=== PATIENT | male | born 1950 | race Caucasian/White ===

== ENCOUNTER → 2016-12-10 | Outpatient (CLI) | payer MEDICARE, OTHER ==
[~2016-12-10] MED LIST: ASP81TEC PO; ASPI-892; ATOR20TA66 PO; BETA1TAB15 PO; BISO1TAB6 PO; CARV12.5 GT; CETI10TA17 PO; CLPD75T PO; DIPH25TA82 PO; EPIN0.3P3 IM; FAMO20TA5 PO; FIBER THERAPY PO; FISH OIL 1,2001 EAC1 PO; FISH1CAP15 PO; GABA-488 PO; HYDR25TA4 PO; LAX; LISI10TA2 PO; LISI1TAB8 PO; LOSA100T7 PO; METF500T8 PO; MULT-608 PO; NAPR220T76 PO; NST15C; OMEG1CAP51; OMEP-10 PO; POTA10TA6 PO; PRD20T PO; SIMV40TA2 PO; SITA100T PO; TADA2.5T PO; TEST5GEL6; VALS1TAB15 PO; VALS1TAB80 PO; ZINC50TA49 PO; [UNRECOGNIZED DRUG - OTHER]; [UNRECOGNIZED DRUG - OTHER]
--- NOTE | 2016-12-10 08:49 | Diagnostic Imaging Report ---
INDICATION: Elevated liver enzymes Liver is enlarged measuring 23 cm in length. There is increased echogenicity suggesting fatty infiltration. No focal hepatic abnormality is identified and there is no evidence of biliary ductal dilatation. Common bile duct is partially obscured. Pancreas is not well visualized. There is no evidence of right renal abnormality or significant free fluid in the right upper quadrant. IMPRESSION: Hepatomegaly with fatty infiltration of the liver. There is no evidence of significant biliary ductal dilatation within the liver and no mass is identified. There is no evidence of gallbladder inflammation or stone. Dictated by: Dictated on workstation # [id number]
== END ==
LOC: RAD 06:50
PROVIDERS: ATTEND Family Medicine
DX: K76.0 Fatty (change of) liver, not elsewhere classified (principal); R74.8 Abnormal levels of other serum enzymes
CPT/HCPCS: 76705

== ENCOUNTER 2018-01-31 13:30 | Emergency (ER) | payer MEDICARE, OTHER ==
[~2018-01-31] VITALS: Ht 182.9 cm; Wt 118.4 kg
--- OUTSIDE RECORDS SUMMARY | 2018-01-31 13:37 | XMS REPORT | Continuity of Care Document ---
Author Author [facility] Organization [facility] Address Unknown Phone Unavailable Allergies Active Description Code Type Severity Reaction Onset Reported/Identified Relationship to Patient Clinical Status Yes No Known Drug Allergies [id number] Drug Allergy Unknown N/A 09/28/2008 Yes JR Inhibitors [id number] Drug Allergy Unknown N/A 06/08/2014 Medications There is no data. Problems Date Dx Coded Attending Type Code Diagnosis Diagnosed By 02/17/2014 SHELDON YARBROUGH, SARAH Nicholson Ot 995.1 ANGIONEUROTIC EDEMA 06/08/2014 DANNANDEZEQUIEL DO, TIM S Ot 250.02 DIAB NAMRATA WO COMPL, TYPE II OR UNSPEC TY 06/08/2014 DANNANDEZEQUIEL DO, ITM S Ot 401.9 HYPERTENSION NOS 06/08/2014 DANNANDER DO, TIM S Ot 995.1 ANGIONEUROTIC EDEMA 06/08/2014 DANNANDER DO, TIM S Ot E932.0 ADV EFF CORTICOSTEROIDS 10/23/2014 DANNANDER DO, TIM S Ot 250.02 10/23/2014 DANNANDER DO, TIM S Ot 278.00 10/23/2014 DANNANDER DO, TIM S Ot 355.9 10/23/2014 DANNANDER DO, TIM S Ot 401.9 12/12/2014 DANNANDER DO, TIM S Ot 250.02 DIAB NAMRATA WO COMPL, TYPE II OR UNSPEC TY 12/12/2014 ORENDER DO, TIM S Ot 278.00 OBESITY, NOS 12/12/2014 DANNANDER DO, TIM S Ot 355.9 MONONEURITIS NOS 12/12/2014 DANNANDER DO, TIM S Ot 401.9 HYPERTENSION NOS 12/14/2014 DANNANDER DO, TIM S Ot 250.02 12/14/2014 DANNANDER DO, TIM S Ot 278.00 12/14/2014 DANNANDER DO, TIM S Ot 355.9 12/14/2014 ORENDER DO, TIM S Ot 401.9 12/15/2014 ORENDER DO, TIM S Ot 250.02 12/15/2014 ORENDER DO, TIM S Ot 278.00 12/15/2014 ORENDER DO, TIM S Ot 355.9 12/15/2014 ORENDER DO, TIM S Ot 401.9 12/15/2014 ORENDER DO, TIM S Ot 250.02 12/15/2014 ORENDER DO, TIM S Ot 278.00 12/15/2014 ORENDER DO, TIM S Ot 355.9 12/15/2014 ORENDER DO, TIM S Ot 401.9 12/15/2014 ORENDER DO, TIM S Ot 250.02 12/15/2014 ORENDER DO, TIM S Ot 278.00 12/15/2014 ORENDER DO, TIM S Ot 355.9 12/15/2014 ORENDER DO, TIM S Ot 401.9 12/15/2014 ORENDER DO, TIM S Ot 250.02 12/15/2014 ORENDER DO, TIM S Ot 278.00 12/15/2014 ORENDER DO, TIM S Ot 355.9 12/15/2014 ORENDER DO, TIM S Ot 401.9 12/15/2014 ORENDER DO, TIM S Ot 250.02 12/15/2014 ORENDER DO, TIM S Ot 278.00 12/15/2014 ORENDER DO, TIM S Ot 355.9 12/15/2014 ORENDER DO, TIM S Ot 401.9 01/05/2015 ORENDER DO, TIM S Ot 250.02 01/05/2015 ORENDER DO, TIM S Ot 278.00 01/05/2015 ORENDER DO, TIM S Ot 355.9 01/05/2015 ORENDER DO, TIM S Ot 401.9 02/10/2015 ORENDER DO, TIM S Ot 250.02 02/10/2015 ORENDER DO, TIM S Ot 278.00 02/10/2015 ORENDER DO, TIM S Ot 355.9 02/10/2015 OREND DO, TIM S Ot 401.9 02/15/2015 OREND DO, TIM S Ot 250.02 02/15/2015 OREND DO, TIM S Ot 278.00 02/15/2015 OREND DO, TIM S Ot 355.9 02/15/2015 OREND DO, TIM S Ot 401.9 02/23/2015 [facility], TIM S Ot 250.02 DIAB NAMRATA WO COMPL, TYPE II OR UNSPEC TY 02/23/2015 ORENDER DO, TIM S Ot 278.00 OBESITY, NOS 02/23/2015 ORENDER DO, TIM S Ot 355.9 MONONEURITIS NOS 02/23/2015 OREND DO, TIM S Ot 401.9 HYPERTENSION NOS 01/02/2017 DANNAND DO, TIM S Ot K76.0 FATTY (CHANGE OF) LIVER, NOT ELSEWHERE C 01/02/2017 DANNAND DO, TIM S Ot R74.8 ABNORMAL LEVELS OF OTHER SERUM ENZYMES Procedures There is no data. Results There is no data. Encounters ACCT No. Visit Date/Time Discharge Status Pt. Type Provider Facility Loc./Unit Complaint [id number] 12/10/2016 06:50:00 12/10/2016 23:59:59 CLS Outpatient DANNAKADE AVITIA TIM S [facility] RAD ELEVATED LFT'S [id number] 01/03/2015 18:00:00 02/23/2015 00:01:00 DIS Outpatient DEVORA AVITIA TIM S [facility] DSME DM TYPE 2 [id number] 09/13/2014 09:48:00 12/12/2014 00:01:00 DIS Outpatient NARAYAN JUNIORTIM S [facility] DSME DM TYPE 2 [id number] 06/07/2014 16:55:00 06/08/2014 10:40:00 DIS Inpatient NARAYAN JUNIORTIM S [facility] 4TH ANGIOEDEMA OF TONGUE; SUSPECT 2 DEGREE TO JR INHIB [id number] 02/17/2014 18:16:00 02/17/2014 20:21:00 DIS Emergency BRUEGGEMANN MD, SARAH [facility] ER ALLERGIC REACTION/ TONGUE SWELLING [facility] 01/04/2015 09:37:35 ACT Document Registration 08/02/16 12/17/2017 08:52:30 12/17/2017 23:59:59 [facility] Outpatient Tim Logan
[2018-01-31] MEDS ORDERED: NS IV 1000 ML 1,000 ML IV ONE (13:49)
[2018-01-31] MEDS ORDERED: diphenhydrAMINE 50 MG/ML INJ (BENADRYL) IV STA (13:49)
[2018-01-31] MEDS ORDERED: methylPREDNISolone 125 MG (Solu-MEDROL) VIAL IV STA (13:49)
[2018-01-31] MEDS ORDERED: raNItidine 50 MG/2 ML INJ (ZANTAC) IJ ONE (14:00)
[2018-01-31] MEDS ORDERED: EPINEPHrine INJECTION 1 MG/ML AMP IM ONE (14:00)
[2018-01-31 14:26] LABS: BASOPHILS % (AUTO) 0 % (0-10); EOSINOPHILS # (AUTO) 0.4 10^3/uL (0.0-0.3); EOSINOPHILS % (AUTO) 4 % (0-10); HEMATOCRIT 44 % (40-54); HEMOGLOBIN 15.5 G/DL (13.3-17.7); LYMPHOCYTES # (AUTO) 3.1 X 10^3 (1.0-4.0); LYMPHOCYTES % (AUTO) 28 % (12-44); MEAN CORPUSCULAR HEMOGLOBIN 32 PG (25-34); MEAN CORPUSCULAR HGB CONC 36 G/DL (32-36); MEAN CORPUSCULAR VOLUME 91 FL (80-99); MEAN PLATELET VOLUME 11.9 FL (7.4-10.4); MONOCYTES # (AUTO) 0.8 X 10^3 (0.0-1.0); MONOCYTES % (AUTO) 7 % (0-12); NEUTROPHILS # (AUTO) 6.7 X 10^3 (1.8-7.8); NEUTROPHILS % (AUTO) 61 % (42-75); PLATELET COUNT 174 10^3/uL (130-400); RED BLOOD COUNT 4.78 10^6/uL (4.35-5.85); RED CELL DISTRIBUTION WIDTH 13.1 % (10.0-14.5)
--- NOTE | 2018-01-31 14:28 | ED General ---
General Chief Complaint: Allergic Reaction Stated Complaint: ALLERGIC REACTION, FACE, LIP SWELLING Source of Information: Patient Exam Limitations: No Limitations History of Present Illness Date Seen by Provider: Jan 31, 2018 Time Seen by Provider: 13:59 Initial Comments PT ARRIVES VIA POV FROM [facility] PT NOTICED HIVES ON DORSUM OF RIGHT HAND A FEW DAYS AGO,WENT AWAY, THEN STARTED IN LEFT GROIN AREA THE NEXT DAY, THEN LAST PM IT MOVED TO HIS RIGHT AXILLA TODAY AT NOON, HE WAS EATING BBQ AT [employer] IN [place] AND BEGAN TO HAVE SWELLING TO RIGHT SIDE OF FACE, RIGHT SIDE OF TONGUE AND RIGHT UPPER AND LOWER LIP AND RIGHT HALF OF TONGUE IS STARTING TO FEEL NUMB AND TINGLY NO DIFFICULTY SWALLOWING OR BREATHING OR WHEEZING NO SWELLING TO HANDS OR FEET TODAY PT WAS GIVEN 0.22 ML EPINEPHRINE, 50 MG BENADRYL PO AND DECADRON 10 MG AT [facility] PT HAS HAD 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 LOZOYA Allergies and Home Medications Allergies Coded Allergies: JR Inhibitors (Unverified Allergy, Unknown, 06/08/14) ANGIOEDEMA OF TONGUE Home Medications Aspirin 81 Mg Tabec, 81 MG PO DAILY, (Reported) Atorvastatin 20 Mg Tablet, 20 MG PO DAILY, (Reported) Carvedilol 12.5 Mg Tablet, 12.5 MG GT BID Prescribed by: TIM LOZOYA on 06/08/14 0831 Cetirizine Hcl 10 Mg Tablet, 10 MG PO DAILY, (Reported) Diphenhydramine Hcl 25 Mg Tablet, 1 EACH PO HS PRN for ITCHING Prescribed by: TIM LOZOYA on 06/08/14 0829 Epinephrine 0.3 Mg/0.3 Ml Pen.injctr, 0.3 MG IM PRN PRN for anaphylaxis or angioedema Prescribed by: SARAH GARCIA on 02/17/142020 Fish Oil/Dha/Epa 1 Each Capsule, 1 EACH PO DAILY, (Reported) Hydrochlorothiazide 25 Mg Tablet, 25 MG PO DAILY Prescribed by: TIM LOZOYA on 06/08/14 0831 Metformin Hcl 500 Mg Tab.sr.24h, 1 EACH PO BID WITH MEALS, (Reported) Multivitamins 1 Tab Tablet, 1 TAB PO DAILY, (Reported) Omeprazole 20 Mg Capsule.dr, 20 MG PO DAILY, (Reported) Potassium Chloride 10 Meq Tablet.sa, 1 EACH PO DAILY WITH FOOD, (Reported) Prednisone 20 Mg Tab, 20 MG PO DAILY@0700 Prescribed by: ITM LOZOYA on 06/08/14 0829 Prednisone 20 Mg Tab, 60 MG PO DAILY Prescribed by: FOX STRICKLAND on 01/31/18 1613 Sitagliptin Phosphate 100 Mg Tablet, 1 EACH PO DAILY, (Reported) Vit A/Vit C/Vit E/Zinc/Copper 1 Each Tablet, 1 EACH PO DAILY, (Reported) [Fiber Therapy] , 2 TAB PO DAILY, (Reported) Patient Home Medication List Home Medication List Reviewed: Yes Review of Systems Review of Systems Constitutional: no symptoms reported EENTM: see HPI Respiratory: no symptoms reported; No cough, No short of breath, No stridor, No wheezing Cardiovascular: no symptoms reported Gastrointestinal: no symptoms reported; No nausea, No vomiting Genitourinary: no symptoms reported Musculoskeletal: no symptoms reported Skin: see HPI, pruritus, rash Psychiatric/Neurological: No Symptoms Reported Hematologic/Lymphatic: No Symptoms Reported Immunological/Allergic: see HPI Past Axjlcgu-Ainrxd-Gobjst Hx Patient Social History Recent Foreign Travel: No Contact w/Someone Who Travel: No Immunizations Up To Date Date of Pneumonia Vaccine: Jun 07, 2009 Date of Influenza Vaccine: Apr 07, 2014 Past Medical History Surgeries: Yes (NASAL FX X 2; BRAIN SURGERY 1984 FOR CEREBRAL HEMORRHAGE WITH TRACHEOSTOMY; KNEE SCOPE; CARDIAC CATH WITH STENT) Appendectomy, Cardiac, Coronary Stent, Neurological, Orthopedic, Tracheostomy, Transurethral Resection, Vasectomy Cardiac: Yes Coronary Artery Disease, High Cholesterol, Hypertension Neurological: Yes (INTRACRANIAL BLEED) Neuropathy Reproductive Disorders: No Genitourinary: Yes Prostate Problems Gastrointestinal: No Musculoskeletal: Yes (RIGHT FOOT DROP, LUMBAR RADICULOPATHY/NERVE DAMAGE) Foot Drop, Chronic Back Pain Endocrine: Yes Diabetes, Non-Insulin dep HEENT: No Cancer: No Psychosocial: No Integumentary: No Blood Disorders: Yes (POLYCYTHEMIA) Adverse Reaction/Blood Tranf: No Physical Exam Vital Signs Vital Signs - First Documented 01/31/18 13:30 Temp 98.5 Pulse 68 Resp 18 B/P (MAP) 166/98 (120) Pulse Ox 95 O2 Delivery Room Air Capillary Refill : Height, Weight, BMI Height: 6'0.00" Weight: 276lbs. oz. 125.700305ob; BMI Method:Actual General Appearance: No Apparent Distress, WD/WN HEENT: PERRL/EOMI, TMs Normal, Other (MODERATE SWELLING TO RIGHT CHEEK AND LOWER JAW, RIGHT SIDE OF UPPER AND LOWER LIPS, AND TO RIGHT> LEFT SIDE OF TONGUE. 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 SIMILAR URTICARIA IN LEFT GROIN) Progress/Results/Core Measures Suspected Sepsis SIRS Temperature: Pulse: Respiratory Rate: Laboratory Tests 01/31/18 14:05: White Blood Count 11.0 Blood Pressure / Mean: Laboratory Tests 01/31/18 14:05: Creatinine 1.39H, Platelet Count 174, Total Bilirubin 1.2H 01/31/18 14:47: INR Comment 1.1 Results/Orders Lab Results Laboratory Tests Test 01/31/18 14:05 01/31/18 14:47 Range/Units White Blood Count 11.0 4.3-11.0 10^3/uL Red Blood Count 4.78 4.35-5.85 10^6/uL Hemoglobin 15.5 13.3-17.7 G/DL Hematocrit 44 40-54 % Mean Corpuscular Volume 91 80-99 FL Mean Corpuscular Hemoglobin 32 25-34 PG Mean Corpuscular Hemoglobin Concent 36 32-36 G/DL Red Cell Distribution Width 13.1 10.0-14.5 % Platelet Count 174 130-400 10^3/uL Mean Platelet Volume 11.9 H 7.4-10.4 FL Neutrophils (%) (Auto) 61 42-75 % Lymphocytes (%) (Auto) 28 12-44 % Monocytes (%) (Auto) 7 0-12 % Eosinophils (%) (Auto) 4 0-10 % Basophils (%) (Auto) 0 0-10 % Neutrophils # (Auto) 6.7 1.8-7.8 X 10^3 Lymphocytes # (Auto) 3.1 1.0-4.0 X 10^3 Monocytes # (Auto) 0.8 0.0-1.0 X 10^3 Eosinophils # (Auto) 0.4 H 0.0-0.3 10^3/uL Basophils # (Auto) 0.0 0.0-0.1 10^3/uL Sodium Level 136 135-145 MMOL/L Potassium Level 4.1 3.6-5.0 MMOL/L Chloride Level 103 98-107 MMOL/L Carbon Dioxide Level 21 21-32 MMOL/L Anion Gap 12 5-14 MMOL/L Blood Urea Nitrogen 15 7-18 MG/DL Creatinine 1.39 H 0.60-1.30 MG/DL Estimat Glomerular Filtration Rate 51 BUN/Creatinine Ratio 11 Glucose Level 160 H 70-105 MG/DL Calcium Level 10.1 8.5-10.1 MG/DL Corrected Calcium 9.7 8.5-10.1 MG/DL Total Bilirubin 1.2 H 0.1-1.0 MG/DL Aspartate Amino Transf (AST/SGOT) 61 H 5-34 U/L Alanine Aminotransferase (ALT/SGPT) 83 H 0-55 U/L Alkaline Phosphatase 53 40-136 U/L Total Protein 7.1 6.4-8.2 GM/DL Albumin 4.5 3.2-4.5 GM/DL Prothrombin Time 14.0 12.2-14.7 SEC INR Comment 1.1 0.8-1.4 Activated Partial Thromboplast Time 26 24-35 SEC My Orders Orders - FOX STRICKLAND DO Saline Lock/Iv-Start (01/31/18 13:49) Monitor-Rhythm Ecg Trace Only (01/31/18 13:49) Cbc With Automated Diff (01/31/18 13:49) Comprehensive Metabolic Panel (01/31/18 13:49) Protime With Inr (01/31/18 13:49) Partial Thromboplastin Time (01/31/18 13:49) Saline Lock/Iv-Start (01/31/18 13:49) Ns Iv 1000 Ml (Sodium Chloride 0.9%) (01/31/18 13:49) Diphenhydramine Injection (Benadryl Inje (01/31/18 13:49) Methylprednisolone Sod Succ (Solu-Medrol (01/31/18 13:49) Ranitidine Injection (Zantac Injection) (01/31/18 14:00) Epinephrine 1 Mg Injection (Adrenalin I (01/31/18 14:00) Medications Given in ED Current Medications Medications Dose Ordered Sig/Luis F Route Start Time Stop Time Status Last Admin Dose Admin Epinephrine HCl 0.3 mg ONCE ONCE IM 01/31/18 14:00 01/31/18 14:01 DC 01/31/18 14:17 0.3 MG Ranitidine HCl 50 mg ONCE ONCE IJ 01/31/18 14:00 01/31/18 14:01 DC 01/31/18 14:14 50 MG Sodium Chloride 1,000 ml @ 0 mls/hr Q0M ONCE IV 01/31/18 13:49 01/31/18 13:53 DC 01/31/18 14:18 1,000 MLS/HR Vital Signs/I&O 01/31/18 01/31/18 13:30 16:20 Temp 98.5 Pulse 68 76 Resp 18 18 B/P (MAP) 166/98 (120) 169/95 Pulse Ox 95 95 O2 Delivery Room Air Capillary Refill : Progress Note : Progress Note ALL SYMPTOMS RESOLVED WITH MEDICATIONS, EXCEPT FOR MILD RESIDUAL SWELLING OF RIGHT LOWER LIP PT IS ANXIOUS TO GO HOME, OFFERED ADMIT AND HE DECLINES PT ADVISED OF RISKS OF WORSENING OF SYMPTOMS IN A FEW HOURS, WHEN MEDICATIONS WEAR OFF. PT AND APPEAR TO UNDERSTAND ADVISED TO RETURN TO ER IMMEDIATELY IF SWELLING RETURNS. Departure Impression Primary Impression: ALLERGIC REACTION WITH HIVES AND ANGIOEDEMA Disposition: HOME, SELF-CARE Condition: Improved Departure-Patient Inst. Referrals: TIM LOZOYA DO (PCP/Family) Primary Care Physician Patient Instructions: Drug Allergy, Food Allergy Add. Discharge Instructions: HOME, REST TAKE BENADRYL 50 MG EVERY 4 HOURS ZANTAC 150 MG TWICE A DAY LOTS OF FLUIDS FOLLOW UP WITH YOUR DR ON SATURDAY FOR FURTHER CARE RETURN TO ER IF WORSE All discharge instructions reviewed with patient and/or family. Voiced understanding. Scripts Prednisone (Prednisone) 20 Mg Tab 60 MG PO DAILY, #9 TAB Prov: FOX STRICKLAND DO 01/31/18 FOX STRICKLAND DO Jan 31, 2018 14:28
[2018-01-31 14:48] LABS: ALBUMIN 4.5 GM/DL (3.2-4.5); BILIRUBIN,TOTAL 1.2 MG/DL (0.1-1.0); CALCIUM 10.1 MG/DL (8.5-10.1); CREATININE SERUM 1.39 MG/DL (0.60-1.30); POTASSIUM 4.1 MMOL/L (3.6-5.0); TOTAL PROTEIN 7.1 GM/DL (6.4-8.2)
[2018-01-31 15:11] LABS: INR 1.1 (0.8-1.4)
[2018-01-31] MEDS ORDERED: PRD20T PO (16:13)
[2018-01-31 16:20] VITALS: BP 169/95
== END 2018-01-31 16:26 | disposition home or self-care (01) ==
LOC: EDUNIT# 13:30 → ER 13:32
DX: T78.40XA Allergy, unspecified, initial encounter (principal); T78.3XXA Angioneurotic edema, initial encounter; L50.9 Urticaria, unspecified; E78.00 Pure hypercholesterolemia, unspecified; I25.10 Atherosclerotic heart disease of native coronary artery without angina pectoris; I10 Essential (primary) hypertension; E11.9 Type 2 diabetes mellitus without complications; Z87.820 Personal history of traumatic brain injury; Z88.8 Allergy status to other drugs, medicaments and biological substances; Z79.82 Long term (current) use of aspirin; Z79.84 Long term (current) use of oral hypoglycemic drugs; Z79.52 Long term (current) use of systemic steroids; Z93.0 Tracheostomy status; Z95.5 Presence of coronary angioplasty implant and graft; Z90.89 Acquired absence of other organs; Z98.52 Vasectomy status
CPT/HCPCS: 36415; 80053; 85025; 85610; 85730; 93041; 96361; 96372; 96374; 96375

== ENCOUNTER 2018-02-05 08:35 | Emergency (ER) | payer MEDICARE, OTHER ==
[~2018-02-05] VITALS: Ht 185.4 cm; Wt 118.4 kg
--- OUTSIDE RECORDS SUMMARY | 2018-02-05 08:43 | XMS REPORT | Continuity of Care Document ---
Author Author [facility] Organization [facility] Address Unknown Phone Unavailable Allergies Active Description Code Type Severity Reaction Onset Reported/Identified Relationship to Patient Clinical Status Yes No Known Drug Allergies [id number] Drug Allergy Unknown N/A 09/28/2008 Yes JR Inhibitors [id number] Drug Allergy Unknown N/A 06/08/2014 Medications There is no data. Problems Date Dx Coded Attending Type Code Diagnosis Diagnosed By 02/17/2014 SHELDON YARBROUGH, SARAH Nicholson Ot 995.1 ANGIONEUROTIC EDEMA 06/08/2014 DANANNDEZEQUIEL DO, TIM S Ot 250.02 DIAB NAMRATA WO COMPL, TYPE II OR UNSPEC TY 06/08/2014 DANNANDEZEQUIEL DO, TIM S Ot 401.9 HYPERTENSION NOS 06/08/2014 DANNANDER [...] OREND DO, TIM S Ot 401.9 [facility]/23/[facility] Ot 250.02 DIAB NAMRATA [...] Status Pt. Type Provider Facility Loc./Unit Complaint [id number] 12/10/2016 06:50:00 12/10/2016 23:59:59 CLS Outpatient DANNAKADE AVITIA TIM S [facility] RAD ELEVATED LFT'S [id number] 01/03/2015 18:00:00 02/23/2015 00:01:00 DIS Outpatient DEVORA AVITIA TIM S [facility] DSME DM TYPE 2 [id number] 09/13/2014 09:48:00 12/12/2014 00:01:00 DIS Outpatient NARAYAN JUNIORTIM S [facility] DSME DM TYPE 2 [id number] 06/07/2014 16:55:00 06/08/2014 10:40:00 DIS Inpatient NARAYAN JUNIORTIM S [facility] 4TH ANGIOEDEMA OF TONGUE; SUSPECT 2 DEGREE TO JR INHIB [id number] 02/17/2014 18:16:00 02/17/2014 20:21:00 DIS Emergency BRUEGGEMANN MD, SARAH Nicholson [facility] ER ALLERGIC REACTION/ TONGUE SWELLING [id number] 02/05/2018 08:36:00 ACT Emergency ANTHONY YARBROUGH, KIM Rodriguez [facility] ER HIVES;TONGUE SWELLING [facility] 01/04/2015 09:37:35 ACT Document Registration 08/02/16 02/03/2018 10:19:48 ACT Outpatient Tim Logan
[2018-02-05] MEDS ORDERED: methylPREDNISolone 125 MG (Solu-MEDROL) VIAL ONE (08:52)
[2018-02-05] MEDS ORDERED: raNItidine 50 MG/2 ML INJ (ZANTAC) ONE (08:52)
[2018-02-05] MEDS ORDERED: diphenhydrAMINE 50 MG/ML INJ (BENADRYL) ONE (08:52)
[2018-02-05] MEDS ORDERED: raNItidine 50 MG/2 ML INJ (ZANTAC) IM/IV STA (08:54)
[2018-02-05] MEDS ORDERED: LORATADINE (CLARITIN) 10 MG TAB PO ONE (09:00)
[2018-02-05] MEDS ORDERED: diphenhydrAMINE 50 MG/ML INJ (BENADRYL) IVP ONE (09:00)
[2018-02-05] MEDS ORDERED: diphenhydrAMINE 50 MG/ML INJ (BENADRYL) IM ONE (09:00)
[2018-02-05] MEDS ORDERED: methylPREDNISolone 125 MG (Solu-MEDROL) VIAL IVP ONE (09:00)
--- NOTE | 2018-02-05 09:05 | ED Respiratory ---
General Chief Complaint: Allergic Reaction Stated Complaint: HIVES;TONGUE SWELLING Nursing Triage Note: PT WAS SEEN SATURDAY OF LAST WEEK FOR AN ALLERGIC REACTION, STATES HIS ITCHING AND HIVES HAVE NOT GONE AWAY AND TOUNGUE IS NOW SWOLLEN Source: patient, spouse Exam Limitations: no limitations History of Present Illness Date Seen by Provider: Feb 05, 2018 Time Seen by Provider: 08:45 Initial Comments The patient presents to the ER by private conveyance with his significant other and chief complaint that this morning he woke up with his tongue feeling, thick and swollen and continue to get worse today. He had some cereal last night to eat and this morning he had eggs toast sausage. No new medications. No new soaps , mouthwash, cologne, detergents etc. Patient does have a history of angioedema from lisinopril but his not on either that or nor ARB. His last event was Saturday similar to this he had swelling of his tongue and difficulty breathing and he took some medications and was seen for that but is no longer taking anything that went away. He has not identified what his allergy is. He does have some food allergies. He said he had honey on his toast this morning. He does not have a history of pulmonary disease and has not taken anything this morning for his swelling. Allergies and Home Medications Allergies Coded Allergies: JR Inhibitors (Unverified Allergy, Unknown, 06/08/14) ANGIOEDEMA OF TONGUE Home Medications Aspirin 81 Mg Tabec, 81 MG PO DAILY, (Reported) Carvedilol 12.5 Mg Tablet, 12.5 MG GT BID Prescribed by: TIM LOZOYA on 06/08/14 0831 Epinephrine 0.3 Mg/0.3 Ml Pen.injctr, 0.3 MG IM PRN PRN for anaphylaxis or angioedema Prescribed by: SARAH GARCIA on 02/17/142020 Fish Oil/Dha/Epa 1 Each Capsule, 1 EACH PO DAILY, (Reported) Metformin Hcl 500 Mg Tab.sr.24h, 1 EACH PO BID WITH MEALS, (Reported) Multivitamins 1 Tab Tablet, 1 TAB PO DAILY, (Reported) Omeprazole 20 Mg Capsule.dr, 20 MG PO DAILY, (Reported) Potassium Chloride 10 Meq Tablet.sa, 1 EACH PO DAILY WITH FOOD, (Reported) Prednisone 20 Mg Tab, 20 MG PO DAILY@0700 Prescribed by: TIM LOZOYA on 06/08/14 0829 Prednisone 20 Mg Tab, 60 MG PO DAILY Prescribed by: FOX STRICKLAND on 01/31/18 1613 Sitagliptin Phosphate 100 Mg Tablet, 1 EACH PO DAILY, (Reported) Vit A/Vit C/Vit E/Zinc/Copper 1 Each Tablet, 1 EACH PO DAILY, (Reported) [Fiber Therapy] , 2 TAB PO DAILY, (Reported) Patient Home Medication List Home Medication List Reviewed: Yes Review of Systems Review of Systems Constitutional: No chills, No diaphoresis EENTM: No ear discharge, No ear pain Respiratory: No cough, No short of breath, No stridor, No wheezing Cardiovascular: No chest pain, No edema Gastrointestinal: No abdominal pain, No constipation, No nausea, No vomiting Genitourinary: No dysuria, No frequency Musculoskeletal: No back pain, No joint pain Skin: No pruritus, No rash Psychiatric/Neurological: Denies Headache, Denies Numbness Past Gimsonv-Ggotnf-Hrptdj Hx Patient Social History Alcohol Use: Denies Use Recreational Drug Use: No Smoking Status: Never a Smoker Recent Foreign Travel: No Contact w/Someone Who Travel: No Recent Infectious Disease Expo: No Recent Hopitalizations: Yes Immunizations Up To Date Date of Pneumonia Vaccine: Jun 07, 2009 Date of Influenza Vaccine: Apr 07, 2014 Past Medical History Surgeries: Yes Appendectomy, Cardiac, Coronary Stent, Neurological, Orthopedic, Tracheostomy, Transurethral Resection, Vasectomy Respiratory: No Cardiac: Yes (STENT PLACEMENT) Coronary Artery Disease, High Cholesterol, Hypertension Neurological: Yes (INTRACRANIAL BLEED) Neuropathy Reproductive Disorders: No Genitourinary: Yes Prostate Problems Gastrointestinal: No Musculoskeletal: Yes (RIGHT FOOT DROP, LUMBAR RADICULOPATHY/NERVE DAMAGE) Foot Drop, Chronic Back Pain Endocrine: Yes Diabetes, Non-Insulin dep HEENT: No Cancer: No Psychosocial: No Integumentary: No Blood Disorders: Yes (POLYCYTHEMIA) Adverse Reaction/Blood Tranf: No Physical Exam Vital Signs - First Documented 02/05/18 08:45 Temp 98.4 Pulse 74 Resp 20 B/P (MAP) 158/98 (118) Pulse Ox 97 O2 Delivery Room Air Capillary Refill : Less Than 3 Seconds Height: 6'1.00" Weight: 261lbs. oz. 118.598282zd; BMI Method:Stated General Appearance: WD/WN, no apparent distress Eyes: Bilateral Eye Normal Inspection, Bilateral Eye PERRL, Bilateral Eye EOMI HEENT: PERRL/EOMI, TMs normal, other (base of tongue is swollen, no erythema, exudate or tonsillar swelling.) Neck: non-tender, full range of motion, supple, normal inspection Respiratory: chest non-tender, lungs clear, normal breath sounds, no respiratory distress, no accessory muscle use, other (negative for stridor) Cardiovascular: normal peripheral pulses, regular rate, rhythm Neurologic/Psychiatric: alert, normal mood/affect, oriented x 3 Skin: other (lone hive on his left chest) Progress/Results/Core Measures Suspected Sepsis Recent Fever Within 48 Hours: No Infection Criteria Present: None New/Unexplained Altered Menta: No Sepsis Screen: No Definite Risk SIRS Temperature:98.4 Pulse: 74 Respiratory Rate: 20 Blood Pressure 158 /98 Mean: 118 Results/Orders My Orders Orders - KIM CRUZ Loratadine Tablet (Claritin Tablet) (02/05/18 09:00) Diphenhydramine Injection (Benadryl Inje (02/05/18 09:00) Methylprednisolone Sod Succ (Solu-Medrol (02/05/18 09:00) Ranitidine Injection (Zantac Injection) (02/05/18 08:54) Diphenhydramine Injection (Benadryl Inje (02/05/18 09:00) Ranitidine Injection (Zantac Injection) (02/05/18 08:52) Diphenhydramine Injection (Benadryl Inje (02/05/18 08:52) Methylprednisolone Sod Succ (Solu-Medrol (02/05/18 08:52) Epinephrine 1 Mg Injection (Adrenalin I (02/05/18 09:17) Continuous Ekg Monitoring (02/05/18 09:17) Epinephrine 1 Mg Injection (Adrenalin I (02/05/18 10:00) Saline Lock/Iv-Start (02/05/18 09:58) Ns Iv 1000 Ml (Sodium Chloride 0.9%) (02/05/18 09:58) Medications Given in ED Current Medications Medications Dose Ordered Sig/Luis F Route Start Time Stop Time Status Last Admin Dose Admin Diphenhydramine HCl 25 mg ONCE ONCE IVP 9/12/18 09:00 02/05/18 09:01 DC 02/05/18 09:04 25 MG Epinephrine HCl 0.5 mg ONCE ONCE IM 02/05/18 10:00 02/05/18 10:01 DC 02/05/18 10:07 0.5 MG Loratadine 10 mg ONCE ONCE PO 02/05/18 09:00 02/05/18 09:01 DC 02/05/18 09:04 10 MG Methylprednisolone Sodium Succinate 125 mg ONCE ONCE IVP 02/05/18 09:00 02/05/18 09:01 DC 02/05/18 09:04 125 MG Vital Signs/I&O 02/05/18 02/05/18 08:45 09:04 Temp 98.4 98.4 Pulse 74 Resp 20 B/P (MAP) 158/98 (118) Pulse Ox 97 O2 Delivery Room Air Capillary Refill : Less Than 3 Seconds Blood Pressure Mean: 118 Progress Note #1: Time: 09:07 Progress Note Regular admitting to some steroids and antihistamines and observe him for a short while and see that he is improving then we'll probably put him out on some modest dose steroids and loratadine/Pepcid or Zantac with Benadryl for breakthrough swelling/itching. Follow-up with PCP. Progress Note #2: Time: 09:36 Progress Note Patient's stating his times continuing to swell still having any stridor but he said some difficulty swallowing liquids so we'll give him a 0.1 mg/kg bolus of epinephrine or 0.5 mg IM. Put him on the director of cardiac rehabilitation. His blood pressure still grade at 138 systolic and his heart rate never went up. We will also give him a liter of saline which would be a 10 mL/kg bolus. Progress Note #3: Time: 10:54 Progress Note Patient is still having no problems drinking or breathing. His tongue has gotten a little smaller. After the second dose epi however is also made his blood pressure got 190/112. We'll hold off treating it as the epinephrine has a limited duration of affect and he still has the carvedilol on board. We will put him on some steroids but a lower dose than before because it causes sugar to jump up to an uncomfortably high level for him. Therefore he only did the steroids for 2 days. We have warned him that he receive a large bolus of steroids here in the ER and I will make sugars go up over the next couple days. Departure Impression Primary Impression: Angioedema Qualified Codes: T78.3XXA - Angioneurotic edema, initial encounter Disposition: 01 HOME, SELF-CARE Condition: Improved Departure-Patient Inst. Decision time for Depature: 10:56 Referrals: TIM LOZOYA DO (PCP/Family) Primary Care Physician Patient Instructions: Angioedema (DC) Add. Discharge Instructions: floor supervisor the prednisone and take 20 mg which is one third the dose your on prior visit. Expect to have some elevated blood sugars for the next couple days. Take one tablet daily for the next 5 days starting tomorrow. Continue to take Zantac or Pepcid one capsule twice a day for the next 5 days and loratadine or cetirizine 10 mg daily. If you feel more hives are coming on or you're having itching or worsening swelling you can also take 25 mg of Benadryl every 6 hours. If you have difficulty breathing or stridor then you should use the epinephrine autoinjector and return to the ER immediately. All discharge instructions reviewed with patient and/or family. Voiced understanding. Scripts Prednisone (Prednisone) 20 Mg Tab 20 MG PO DAILY for 5 Days, #5 TAB 0 Refills Prov: KIM CRUZ 02/05/18 Epinephrine (Epipen) 0.3 Mg/0.3 Ml Auto.injct 0.3 MG IJ Q15M PRN for anaphylaxis, #2 EACH 0 Refills Prov: KIM CRUZ 02/05/18 Copy Copies To 1: TIM LOZOYA TITUS J Feb 05, 2018 09:05
[2018-02-05] MEDS ORDERED: EPINEPHrine INJECTION 1 MG/ML AMP IM STA (09:17)
[2018-02-05] MEDS ORDERED: NS IV 1000 ML 1,000 ML IV SCH (09:58)
[2018-02-05] MEDS ORDERED: EPINEPHrine INJECTION 1 MG/ML AMP IM ONE (10:00)
[2018-02-05] MEDS ORDERED: PRD20T PO (11:01)
[2018-02-05] MEDS ORDERED: EPIN0.3P2 IJ (11:01)
[2018-02-05 11:32] VITALS: BP 171/97
== END 2018-02-05 11:33 | disposition home or self-care (01) ==
LOC: EDUNIT# 08:35 → ER 08:36
DX: T78.3XXA Angioneurotic edema, initial encounter (principal); I25.10 Atherosclerotic heart disease of native coronary artery without angina pectoris; E78.00 Pure hypercholesterolemia, unspecified; I10 Essential (primary) hypertension; E11.9 Type 2 diabetes mellitus without complications; Z88.8 Allergy status to other drugs, medicaments and biological substances; Z79.82 Long term (current) use of aspirin; Z79.84 Long term (current) use of oral hypoglycemic drugs; Z79.52 Long term (current) use of systemic steroids; Z95.5 Presence of coronary angioplasty implant and graft; Z90.89 Acquired absence of other organs; Z93.0 Tracheostomy status; Z98.52 Vasectomy status
CPT/HCPCS: 96361; 96372; 96374; 96375

== ENCOUNTER 2018-02-12 03:50 | Emergency (ER) | payer MEDICARE, OTHER ==
[~2018-02-12] VITALS: Ht 185.4 cm; Wt 118.4 kg
[~2018-02-12 03:50] MED LIST changes: +EPIN0.3P2 IJ
[2018-02-12] MEDS ORDERED: NS IV 1000 ML 1,000 ML IV ONE (04:14)
[2018-02-12] MEDS ORDERED: methylPREDNISolone 125 MG (Solu-MEDROL) VIAL IV STA (04:14)
[2018-02-12] MEDS ORDERED: diphenhydrAMINE 50 MG/ML INJ (BENADRYL) IV STA (04:14)
[2018-02-12] MEDS ORDERED: FAMOTIDINE 20MG/2ML IV (PEPCID) IV STA (04:14)
--- NOTE | 2018-02-12 04:56 | ED General ---
General Chief Complaint: Allergic Reaction Stated Complaint: ALLERGIC REACTION Nursing Triage Note: P c/o allergic reaction that woke pt from sleep this AM. Pt states this is third time in ED in the last couple of weeks for same reaction. Pt denies diffculty breathing or airway involvement. Nursing Sepsis Screen: No Definite Risk Source of Information: Patient Exam Limitations: No Limitations (KING SOOTMAYOR MD) History of Present Illness Date Seen by Provider: Feb 12, 2018 Time Seen by Provider: 04:09 Initial Comments Here with report of allergic reaction in which the left side of his face is swelling including the upper and lower lip on the left side and cheek but not the time. States he is starting to get some numbness to that side as well. He has had several of these reactions over the last couple of weeks and currently is on a steroid taper. He also continues his histamine blockers as well. Unsure of what is causing these events. Denies throat pain or breathing problems. Denies hives with this event. Denies abdominal pain or discomfort. No new meds, lotions, or soaps but does report trying a new trail mix that was carbohydrate only yesterday. Timing/Duration: 1 Hour Severity: Moderate Associated Systoms: No Chest Pain, No Cough, No Fever/Chills, No Nausea/ Vomiting, No Shortness of Air, No Weakness (KING SOTOMAYOR MD) Allergies and Home Medications Allergies Coded Allergies: JR Inhibitors (Unverified Allergy, Unknown, 06/08/14) ANGIOEDEMA OF TONGUE Home Medications Aspirin 81 Mg Tabec, 81 MG PO DAILY, (Reported) Carvedilol 12.5 Mg Tablet, 12.5 MG GT BID Prescribed by: TIM LOZOYA on 06/08/14 0831 Epinephrine 0.3 Mg/0.3 Ml Pen.injctr, 0.3 MG IM PRN PRN for anaphylaxis or angioedema Prescribed by: SARAH GARCIA on 02/17/14 202 Epinephrine 0.3 Mg/0.3 Ml Auto.injct, 0.3 MG IJ Q15M PRN for anaphylaxis Prescribed by: KIM CAMPOS on 02/05/18 1101 Fish Oil/Dha/Epa 1 Each Capsule, 1 EACH PO DAILY, (Reported) Metformin Hcl 500 Mg Tab.sr.24h, 1 EACH PO BID WITH MEALS, (Reported) Multivitamins 1 Tab Tablet, 1 TAB PO DAILY, (Reported) Omeprazole 20 Mg Capsule.dr, 20 MG PO DAILY, (Reported) Potassium Chloride 10 Meq Tablet.sa, 1 EACH PO DAILY WITH FOOD, (Reported) Prednisone 20 Mg Tab, 20 MG PO DAILY@0700 Prescribed by: TIM LOZOYA on 06/08/14 0829 Prednisone 20 Mg Tab, 60 MG PO DAILY Prescribed by: FOX STRICKLAND on 01/31/18 1613 Prednisone 20 Mg Tab, 20 MG PO DAILY Prescribed by: KIM CAMPOS on 02/05/18 1101 Sitagliptin Phosphate 100 Mg Tablet, 1 EACH PO DAILY, (Reported) Vit A/Vit C/Vit E/Zinc/Copper 1 Each Tablet, 1 EACH PO DAILY, (Reported) [Fiber Therapy] , 2 TAB PO DAILY, (Reported) Patient Home Medication List Home Medication List Reviewed: Yes (KING SOTOMAYOR MD) Review of Systems Review of Systems Constitutional: see HPI; No chills, No fever EENTM: see HPI, mouth swelling; No throat swelling Respiratory: No cough, No short of breath Cardiovascular: no symptoms reported Gastrointestinal: no symptoms reported; No nausea, No vomiting Genitourinary: no symptoms reported Musculoskeletal: no symptoms reported Skin: No change in color, No lesions Immunological/Allergic: see HPI (KING SOTOMAYOR MD) All Other Systems Reviewed Negative Unless Noted: Yes (KING SOTOMAYOR MD) Past Yoccquv-Gswzjy-Jghbjh Hx Past Med/Social Hx: Reviewed Nursing Past Med/Soc Hx (KING SOTOMAYOR MD) Patient Social History Alcohol Use: Denies Use Recreational Drug Use: No 2nd Hand Smoke Exposure: No Recent Foreign Travel: No Contact w/Someone Who Travel: No Recent Infectious Disease Expo: No Recent Hopitalizations: Yes Physical Abuse: No Sexual Abuse: No (KING SOTOMAYOR MD) Immunizations Up To Date Date of Pneumonia Vaccine: Jun 07, 2009 Date of Influenza Vaccine: Apr 07, 2014 (KING SOTOMAYOR MD) Past Medical History Surgeries: Yes Appendectomy, Cardiac, Coronary Stent, Neurological, Orthopedic, Tracheostomy, Transurethral Resection, Vasectomy Respiratory: No Cardiac: Yes (STENT PLACEMENT) Coronary Artery Disease, High Cholesterol, Hypertension Neurological: Yes (INTRACRANIAL BLEED) Neuropathy Reproductive Disorders: No Genitourinary: Yes Prostate Problems Gastrointestinal: No Musculoskeletal: Yes (RIGHT FOOT DROP, LUMBAR RADICULOPATHY/NERVE DAMAGE) Foot Drop, Chronic Back Pain Endocrine: Yes Diabetes, Non-Insulin dep HEENT: No Cancer: No Psychosocial: No Integumentary: No Blood Disorders: Yes (POLYCYTHEMIA) Adverse Reaction/Blood Tranf: No (KING SOTOMAYOR MD) Family Medical History Reviewed Nursing Family Hx (KING SOTOMAYOR MD) Physical Exam Vital Signs Vital Signs - First Documented 02/12/18 03:54 Temp 98.2 Pulse 63 Resp 22 B/P (MAP) 157/100 (119) Pulse Ox 95 O2 Delivery Room Air (KIM CAMPOS) Vital Signs Capillary Refill : Less Than 3 Seconds (KING SOTOMAYOR MD) Height, Weight, BMI Height: 6'1.00" Weight: 261lbs. oz. 118.498838pr; BMI Method:Stated General Appearance: No Apparent Distress, WD/WN HEENT: PERRL/EOMI, Other (swelling noted to the left upper and lower lip as well as the left cheek. Tongue does not seem to be involved.) Neck: Full Range of Motion, Supple Respiratory: Lungs Clear, Normal Breath Sounds Cardiovascular: Regular Rate, Rhythm, No Murmur Gastrointestinal: Non Tender, Soft Back: Normal Inspection, No CVA Tenderness, No Vertebral Tenderness Extremity: Normal Range of Motion, Non Tender Neurologic/Psychiatric: Alert, Oriented x3 Skin: Warm/Dry; No Rash (KING SOTOMAYOR MD) Progress/Results/Core Measures Suspected Sepsis Recent Fever Within 48 Hours: No Infection Criteria Present: None New/Unexplained Altered Menta: No Sepsis Screen: No Definite Risk SIRS Temperature:98.2 Pulse: 63 Respiratory Rate: 22 Laboratory Tests 02/12/18 05:45: White Blood Count 11.0 Blood Pressure 157 /100 Mean: 119 Laboratory Tests 02/12/18 05:45: Platelet Count 183 (KING SOTOMAYOR MD) Results/Orders Lab Results Laboratory Tests Test 02/12/18 05:45 Range/Units White Blood Count 11.0 4.3-11.0 10^3/uL Red Blood Count 4.57 4.35-5.85 10^6/uL Hemoglobin 14.7 13.3-17.7 G/DL Hematocrit 42 40-54 % Mean Corpuscular Volume 92 80-99 FL Mean Corpuscular Hemoglobin 32 25-34 PG Mean Corpuscular Hemoglobin Concent 35 32-36 G/DL Red Cell Distribution Width 13.2 10.0-14.5 % Platelet Count 183 130-400 10^3/uL Mean Platelet Volume 11.0 H 7.4-10.4 FL Neutrophils (%) (Auto) 78 H 42-75 % Lymphocytes (%) (Auto) 16 12-44 % Monocytes (%) (Auto) 5 0-12 % Eosinophils (%) (Auto) 1 0-10 % Basophils (%) (Auto) 0 0-10 % Neutrophils # (Auto) 8.6 H 1.8-7.8 X 10^3 Lymphocytes # (Auto) 1.7 1.0-4.0 X 10^3 Monocytes # (Auto) 0.5 0.0-1.0 X 10^3 Eosinophils # (Auto) 0.1 0.0-0.3 10^3/uL Basophils # (Auto) 0.0 0.0-0.1 10^3/uL Sodium Level 137 135-145 MMOL/L Potassium Level 3.9 3.6-5.0 MMOL/L Chloride Level 105 98-107 MMOL/L Carbon Dioxide Level 21 21-32 MMOL/L Anion Gap 11 5-14 MMOL/L Blood Urea Nitrogen 20 H 7-18 MG/DL Creatinine 0.98 0.60-1.30 MG/DL Estimat Glomerular Filtration Rate > 60 BUN/Creatinine Ratio 20 Glucose Level 157 H 70-105 MG/DL Calcium Level 9.0 8.5-10.1 MG/DL Corrected Calcium 9.0 8.5-10.1 MG/DL Total Bilirubin 1.0 0.1-1.0 MG/DL Aspartate Amino Transf (AST/SGOT) 36 H 5-34 U/L Alanine Aminotransferase (ALT/SGPT) 72 H 0-55 U/L Alkaline Phosphatase 52 40-136 U/L Total Protein 6.3 L 6.4-8.2 GM/DL Albumin 4.0 3.2-4.5 GM/DL (KIM CAMPOS) My Orders Orders - KIM CAMPOS Cho 60g/M 1snack (16-1999 Boby) (02/12/18 Breakfast) (KIM CAMPOS) Medications Given in ED Current Medications Medications Dose Ordered Sig/Luis F Route Start Time Stop Time Status Last Admin Dose Admin Sodium Chloride 1,000 ml @ 0 mls/hr Q0M ONCE IV 02/12/18 04:14 02/12/18 04:17 DC 02/12/18 04:25 1,000 MLS/HR (KIM CAMPOS) Vital Signs/I&O 02/12/18 03:54 Temp 98.2 Pulse 63 Resp 22 B/P (MAP) 157/100 (119) Pulse Ox 95 O2 Delivery Room Air (KIM CAMPOS) Vital Signs/I&O Capillary Refill : Less Than 3 Seconds (KING SOTOMAYOR MD) Blood Pressure Mean: 119 Progress Note : Progress Note Seen and evaluated. IV, normal saline 1 L bolus, famotidine 20 mg IV, Benadryl 50 mg IV and Solu-Medrol 125 mg IV ordered. We will monitor and proceed with epinephrine if needed but we will try to hold off at this point. Patient is in agreement. Monitor patient. 0530: Patient still has similar facial findings if not a little worse on the lower lip. We will go ahead and give epinephrine 0.3 mg IM now and continue to monitor. 0610: Care transferred to Dr. Campos with continued monitoring for swelling. (KING SOTOMAYOR MD) Progress Note #1: Time: 06:49 Progress Note #2: Time: 06:49 Progress Note Assumed care of the patient at shift change. I met with interviewed and examined the patient and I agree with history physical exam documented by Dr. Sotomayor. The patient is comfortable this time and feels that his swelling has improved significantly since receiving the epinephrine. The patient is on steroids and no longer checking his blood sugar at home because it has just been consistently high over 300. He is on his second last day of steroids. Steroids are not prevented his anaphylaxis. He is logging foods that he eats and cannot find a discernible pattern. His has changed detergent to a hypoallergenic detergent. At this time he is not having no stridor or airway difficulty but the plan is to observe him for a couple of hours in the ER. (KIM CAMPOS) Departure Impression Primary Impression: Angioedema Qualified Codes: T78.3XXD - Angioneurotic edema, subsequent encounter Disposition: HOME, SELF-CARE Condition: Improved Departure-Patient Inst. Decision time for Depature: 09:07 (KIM CAMPOS) Referrals: TIM LOZOYA DO (PCP/Family) Primary Care Physician Patient Instructions: Angioedema (DC) Add. Discharge Instructions: line service supervisor the EpiPen and he started to have swelling in your tongue lips face or mouth again you should immediately inject yourself with an EpiPen repeated again and 20 minutes if you're still having worsening swelling and report to the nearest ER. Keep your follow-up appointment with the rag washer February 27. Continue taking the loratadine, Zyrtec daily and Pepcid twice a day. All discharge instructions reviewed with patient and/or family. Voiced understanding. Scripts Epinephrine (Epipen 2-Bridger) 0.3 Mg/0.3 Ml Auto.injct 0.3 MG IJ Q20M PRN for angioedema, #1 EACH 0 Refills Prov: KIM CAMPOS 02/12/18 Copy Copies To 1: TIM LOZOYA TIMOTHY D MD Feb 12, 2018 04:56 KIM CAMPOS Feb 12, 2018 06:51
[2018-02-12] MEDS ORDERED: EPINEPHrine INJECTION 1 MG/ML AMP IM STA (05:32)
[2018-02-12 05:56] LABS: BASOPHILS % (AUTO) 0 % (0-10); EOSINOPHILS # (AUTO) 0.1 10^3/uL (0.0-0.3); EOSINOPHILS % (AUTO) 1 % (0-10); HEMATOCRIT 42 % (40-54); HEMOGLOBIN 14.7 G/DL (13.3-17.7); LYMPHOCYTES # (AUTO) 1.7 X 10^3 (1.0-4.0); LYMPHOCYTES % (AUTO) 16 % (12-44); MEAN CORPUSCULAR HEMOGLOBIN 32 PG (25-34); MEAN CORPUSCULAR HGB CONC 35 G/DL (32-36); MEAN CORPUSCULAR VOLUME 92 FL (80-99); MONOCYTES # (AUTO) 0.5 X 10^3 (0.0-1.0); MONOCYTES % (AUTO) 5 % (0-12); NEUTROPHILS # (AUTO) 8.6 X 10^3 (1.8-7.8); NEUTROPHILS % (AUTO) 78 % (42-75); PLATELET COUNT 183 10^3/uL (130-400); RED BLOOD COUNT 4.57 10^6/uL (4.35-5.85); RED CELL DISTRIBUTION WIDTH 13.2 % (10.0-14.5)
[2018-02-12 06:18] LABS: ALANINE AMINOTRANSFERASE 72 U/L (0-55); ALKALINE PHOSPHATASE 52 U/L (40-136); BUN/CREATININE RATIO 20; CARBON DIOXIDE 21 MMOL/L (21-32); CHLORIDE 105 MMOL/L (98-107); CREATININE SERUM 0.98 MG/DL (0.60-1.30); GFR ESTIMATED > 60; GLUCOSE 157 MG/DL (70-105); POTASSIUM 3.9 MMOL/L (3.6-5.0); SODIUM 137 MMOL/L (135-145); TOTAL PROTEIN 6.3 GM/DL (6.4-8.2)
[2018-02-12] MEDS ORDERED: EPIN0.3P3 IJ (09:09)
[2018-02-12 09:58] VITALS: BP 157/99
== END 2018-02-12 09:58 | disposition home or self-care (01) ==
LOC: EDUNIT# 03:50 → ER 03:51
DX: T78.3XXA Angioneurotic edema, initial encounter (principal); I25.10 Atherosclerotic heart disease of native coronary artery without angina pectoris; E78.00 Pure hypercholesterolemia, unspecified; I10 Essential (primary) hypertension; E11.9 Type 2 diabetes mellitus without complications; D75.1 Secondary polycythemia; Z88.8 Allergy status to other drugs, medicaments and biological substances; Z79.82 Long term (current) use of aspirin; Z79.52 Long term (current) use of systemic steroids; Z79.84 Long term (current) use of oral hypoglycemic drugs; Z95.5 Presence of coronary angioplasty implant and graft; Z90.89 Acquired absence of other organs; Z93.0 Tracheostomy status; Z98.52 Vasectomy status; Z90.79 Acquired absence of other genital organ(s)
CPT/HCPCS: 36415; 80053; 85025; 96361; 96372; 96374; 96375

== ENCOUNTER 2018-02-15 21:50 | Emergency (ER) | payer MEDICARE, OTHER ==
[~2018-02-15] VITALS: Ht 185.4 cm; Wt 118.4 kg
[~2018-02-15 21:50] MED LIST changes: +EPIN0.3P3 IJ
[2018-02-15] MEDS ORDERED: EPINEPHrine INJECTION 1 MG/ML AMP IM STA (22:06)
[2018-02-15] MEDS ORDERED: methylPREDNISolone 125 MG (Solu-MEDROL) VIAL IV STA (22:06)
[2018-02-15] MEDS ORDERED: diphenhydrAMINE 50 MG/ML INJ (BENADRYL) IV STA (22:06)
[2018-02-15] MEDS: EPINEPHrine INJECTION 1 MG/ML AMP ONE ×2 (22:06→22:54)
--- OUTSIDE RECORDS SUMMARY | 2018-02-15 22:07 | XMS REPORT | Continuity of Care Document ---
Author Author [facility] Organization [facility] Address Unknown Phone Unavailable Allergies Active Description Code Type Severity Reaction Onset Reported/Identified Relationship to Patient Clinical Status Yes No Known Drug Allergies [id number] Drug Allergy Unknown N/A 09/28/2008 Yes JR Inhibitors [id number] Drug Allergy Unknown N/A 06/08/2014 Medications There [...] ORENDER DO, TIM S Ot 355.9 02/10/2015 ORENDER DO, TIM S Ot 401.9 02/15/2015 ORENDER DO, TIM S Ot 250.02 02/15/2015 ORENDER DO, TIM S Ot 278.00 02/15/2015 ORENDER DO, TIM S Ot 355.9 02/15/2015 ORENDER DO, TIM S Ot 401.9 02/23/2015 ORENDER DO, TIM S Ot 250.02 DIAB NAMRATA WO COMPL, TYPE II OR UNSPEC TY 02/23/2015 ORENDER DO, TIM S Ot 278.00 OBESITY, NOS 02/23/2015 ORENDER DO, TIM S Ot 355.9 MONONEURITIS NOS 02/23/2015 ORENDER DO, TIM S Ot 401.9 HYPERTENSION NOS 01/02/2017 ORENDER DO, TIM S Ot K76.0 FATTY (CHANGE OF) LIVER, NOT ELSEWHERE C 01/02/2017 ORENDER DO, TIM S Ot R74.8 ABNORMAL LEVELS OF OTHER SERUM ENZYMES 01/31/2018 ORENDER DO, TIM S Ot K76.0 FATTY (CHANGE OF) LIVER, NOT ELSEWHERE C 01/31/2018 ORENDER DO, TIM S Ot R74.8 ABNORMAL LEVELS OF OTHER SERUM ENZYMES 02/07/2018 KIM CRUZ MD Ot E11.9 TYPE 2 DIABETES MELLITUS WITHOUT COMPLIC 02/07/2018 KIM CRUZ MD Ot E78.00 PURE HYPERCHOLESTEROLEMIA, UNSPECIFIED 02/07/2018 KIM CRUZ MD Ot I10 ESSENTIAL (PRIMARY) HYPERTENSION 02/07/2018 KIM CRUZ MD Ot I25.10 ATHSCL HEART DISEASE OF [place] CORONARY 02/07/2018 KIM CRUZ MD Ot K14.8 OTHER DISEASES OF TONGUE 02/07/2018 KIM CRUZ MD Ot T78.3XXA ANGIONEUROTIC EDEMA, INITIAL ENCOUNTER 02/07/2018 KIM CRUZ MD Ot Z79.52 DETENTION (CURRENT) USE OF SYSTEMIC STER 02/07/2018 KIM CRUZ MD Ot Z79.82 DETENTION (CURRENT) USE OF ASPIRIN 02/07/2018 KIM CRUZ MD Ot Z79.84 DETENTION (CURRENT) USE OF ORAL HYPOGLYC 02/07/2018 KIM CRUZ MD Ot Z88.8 ALLERGY STATUS TO OTH DRUG/MEDS/BIOL SUB 02/07/2018 KIM CRUZ MD Ot Z90.89 ACQUIRED ABSENCE OF OTHER ORGANS 02/07/2018 KIM CRUZ MD Ot Z93.0 TRACHEOSTOMY STATUS 02/07/2018 KIM CRUZ MD Ot Z95.5 PRESENCE OF CORONARY ANGIOPLASTY IMPLANT 02/07/2018 KIM CRUZ MD Ot Z98.52 VASECTOMY STATUS 02/14/2018 KIM CRUZ MD Ot D75.1 SECONDARY POLYCYTHEMIA 02/14/2018 KIM CRUZ MD Ot E11.9 TYPE 2 DIABETES MELLITUS WITHOUT COMPLIC 02/14/2018 KIM CRUZ MD Ot E78.00 PURE HYPERCHOLESTEROLEMIA, UNSPECIFIED 02/14/2018 KIM CRUZ MD Ot I10 ESSENTIAL (PRIMARY) HYPERTENSION 02/14/2018 KIM CRUZ MD Ot I25.10 ATHSCL HEART DISEASE OF [place] CORONARY 02/14/2018 KIM CRUZ MD Ot T78.3XXA ANGIONEUROTIC EDEMA, INITIAL ENCOUNTER 02/14/2018 KIM CRUZ MD Ot T78.40XA ALLERGY, UNSPECIFIED, INITIAL ENCOUNTER 02/14/2018 KIM CRUZ MD Ot 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 Results Test Result Range Complete blood count (CBC) with automated white blood cell (WBC) differential - 01/31/18 14:05 Blood leukocytes automated count (number/volume) 11.0 10*3/uL 4.3-11.0 Blood erythrocytes automated count (number/volume) 4.78 10*6/uL 4.35-5.85 Venous blood hemoglobin measurement (mass/volume) 15.5 g/dL 13.3-17.7 Blood hematocrit (volume fraction) 44 % 40-54 Automated erythrocyte mean corpuscular volume 91 [foz_us] 80-99 Automated erythrocyte mean corpuscular hemoglobin (mass per erythrocyte) 32 pg 25-34 Automated erythrocyte mean corpuscular hemoglobin concentration measurement ( mass/volume) 36 g/dL 32-36 Automated erythrocyte distribution width ratio 13.1 % 10.0-14.5 Automated blood platelet count (count/volume) 174 10*3/uL 130-400 Automated blood platelet mean volume measurement 11.9 [foz_us] 7.4-10.4 Automated blood neutrophils/100 leukocytes 61 % 42-75 Automated blood lymphocytes/100 leukocytes 28 % 12-44 Blood monocytes/100 leukocytes 7 % 0-12 Automated blood eosinophils/100 leukocytes 4 % 0-10 Automated blood basophils/100 leukocytes 0 % 0-10 Blood neutrophils automated count (number/volume) 6.7 10*3 1.8-7.8 Blood lymphocytes automated count (number/volume) 3.1 10*3 1.0-4.0 Blood monocytes automated count (number/volume) 0.8 10*3 0.0-1.0 Automated eosinophil count 0.4 10*3/uL 0.0-0.3 Automated blood basophil count (count/volume) 0.0 10*3/uL 0.0-0.1 Comprehensive metabolic panel - 01/31/18 14:05 Serum or plasma sodium measurement (moles/volume) 136 mmol/L 135-145 Serum or plasma potassium measurement (moles/volume) 4.1 mmol/L 3.6-5.0 Serum or plasma chloride measurement (moles/volume) 103 mmol/L 98-107 Carbon dioxide 21 mmol/L 21-32 Serum or plasma anion gap determination (moles/volume) 12 mmol/L 5-14 Serum or plasma urea nitrogen measurement (mass/volume) 15 mg/dL 7-18 Serum or plasma creatinine measurement (mass/volume) 1.39 mg/dL 0.60-1.30 Serum or plasma urea nitrogen/creatinine mass ratio 11 NRG Serum or plasma creatinine measurement with calculation of estimated glomerular filtration rate 51 NRG Serum or plasma glucose measurement (mass/volume) 160 mg/dL 70-105 Serum or plasma calcium measurement (mass/volume) 10.1 mg/dL 8.5-10.1 Serum or plasma total bilirubin measurement (mass/volume) 1.2 mg/dL 0.1-1.0 Serum or plasma alkaline phosphatase measurement (enzymatic activity/volume) 53 U/L 40-136 Serum or plasma aspartate aminotransferase measurement (enzymatic activity/ volume) 61 U/L 5-34 Serum or plasma alanine aminotransferase measurement (enzymatic activity/volume ) 83 U/L 0-55 Serum or plasma protein measurement (mass/volume) 7.1 g/dL 6.4-8.2 Serum or plasma albumin measurement (mass/volume) 4.5 g/dL 3.2-4.5 CALCIUM CORRECTED 9.7 mg/dL 8.5-10.1 PT panel in platelet poor plasma by coagulation assay - 01/31/18 14:47 Prothrombin time (PT) in platelet poor plasma by coagulation assay 14.0 s 12.2-14.7 INR in platelet poor plasma or blood by coagulation assay 1.1 0.8-1.4 Activated partial thromboplastin time (aPTT) in platelet poor plasma bycoagulation assay - 01/31/18 14:47 Activated partial thromboplastin time (aPTT) in platelet poor plasma bycoagulation assay 26 s 24-35 Complete blood count (CBC) with automated white blood cell (WBC) differential - 02/12/18 05:45 Blood leukocytes automated count (number/volume) 11.0 10*3/uL 4.3-11.0 Blood erythrocytes automated count (number/volume) 4.57 10*6/uL 4.35-5.85 Venous blood hemoglobin measurement (mass/volume) 14.7 g/dL 13.3-17.7 Blood hematocrit (volume fraction) 42 % 40-54 Automated erythrocyte mean corpuscular volume 92 [foz_us] 80-99 Automated erythrocyte mean corpuscular hemoglobin (mass per erythrocyte) 32 pg 25-34 Automated erythrocyte mean corpuscular hemoglobin concentration measurement ( mass/volume) 35 g/dL 32-36 Automated erythrocyte distribution width ratio 13.2 % 10.0-14.5 Automated blood platelet count (count/volume) 183 10*3/uL 130-400 Automated blood platelet mean volume measurement 11.0 [foz_us] 7.4-10.4 Automated blood neutrophils/100 leukocytes 78 % 42-75 Automated blood lymphocytes/100 leukocytes 16 % 12-44 Blood monocytes/100 leukocytes 5 % 0-12 Automated blood eosinophils/100 leukocytes 1 % 0-10 Automated blood basophils/100 leukocytes 0 % 0-10 Blood neutrophils automated count (number/volume) 8.6 10*3 1.8-7.8 Blood lymphocytes automated count (number/volume) 1.7 10*3 1.0-4.0 Blood monocytes automated count (number/volume) 0.5 10*3 0.0-1.0 Automated eosinophil count 0.1 10*3/uL 0.0-0.3 Automated blood basophil count (count/volume) 0.0 10*3/uL 0.0-0.1 Comprehensive metabolic panel - 02/12/18 05:45 Serum or plasma sodium measurement (moles/volume) 137 mmol/L 135-145 Serum or plasma potassium measurement (moles/volume) 3.9 mmol/L 3.6-5.0 Serum or plasma chloride measurement (moles/volume) 105 mmol/L 98-107 Carbon dioxide 21 mmol/L 21-32 Serum or plasma anion gap determination (moles/volume) 11 mmol/L 5-14 Serum or plasma urea nitrogen measurement (mass/volume) 20 mg/dL 7-18 Serum or plasma creatinine measurement (mass/volume) 0.98 mg/dL 0.60-1.30 Serum or plasma urea nitrogen/creatinine mass ratio 20 NRG Serum or plasma creatinine measurement with calculation of estimated glomerular filtration rate > NRG Serum or plasma glucose measurement (mass/volume) 157 mg/dL 70-105 Serum or plasma calcium measurement (mass/volume) 9.0 mg/dL 8.5-10.1 Serum or plasma total bilirubin measurement (mass/volume) 1.0 mg/dL 0.1-1.0 Serum or plasma alkaline phosphatase measurement (enzymatic activity/volume) 52 U/L 40-136 Serum or plasma aspartate aminotransferase measurement (enzymatic activity/ volume) 36 U/L 5-34 Serum or plasma alanine aminotransferase measurement (enzymatic activity/volume ) 72 U/L 0-55 Serum or plasma protein measurement (mass/volume) 6.3 g/dL 6.4-8.2 Serum or plasma albumin measurement (mass/volume) 4.0 g/dL 3.2-4.5 CALCIUM CORRECTED 9.0 mg/dL 8.5-10.1 Encounters ACCT No. Visit Date/Time Discharge Status Pt. Type Provider Facility Loc./Unit Complaint [id number] 02/12/2018 03:51:00 02/12/2018 09:58:00 DIS Outpatient KIM CRUZ MD [facility] ER ALLERGIC REACTION [id number] 02/05/2018 08:36:00 02/05/2018 11:33:00 DIS Outpatient KIM CRUZ MD [facility] ER HIVES;TONGUE SWELLING [id number] 01/31/2018 13:32:00 01/31/2018 16:26:00 DIS Emergency FOX STRICKLAND DO [facility] ER ALLERGIC REACTION, FACE, LIP SWELLING [id number] 12/10/2016 06:50:00 12/10/2016 23:59:59 CLS Outpatient TIM LOGAN DO S [facility] RAD ELEVATED LFT'S [id number] 01/03/2015 18:00:00 02/23/2015 00:01:00 DIS Outpatient TIM LOGAN DO S [facility] DSME DM TYPE 2 [id number] 09/13/2014 09:48:00 12/12/2014 00:01:00 DIS Outpatient TIM LOGAN DO S [facility] DSME DM TYPE 2 [id number] 06/07/2014 16:55:00 06/08/2014 10:40:00 DIS Inpatient TIM LOGAN DO S [facility] 4TH ANGIOEDEMA OF TONGUE; SUSPECT 2 DEGREE TO JR INHIB [id number] 02/17/2014 18:16:00 02/17/2014 20:21:00 DIS Emergency SHELDON YARBROUGH, SARAH Nicholson [facility] ER ALLERGIC REACTION/ TONGUE SWELLING [id number] 02/15/2018 21:51:00 ACT Emergency СВЕТЛАНА YARBROUGH, KING Garcia [facility] ER THROAT TIGHT, TOUNGE/LIP NUMB, ALLERGIC REACTION [id number] 01/04/2015 09:37:35 ACT Document Registration 08/02/16 02/03/2018 10:19:48 02/03/2018 23:59:59 [facility] Outpatient Tim Logan
[2018-02-15] MEDS: diphenhydrAMINE 50 MG/ML INJ (BENADRYL) ONE ×2 (22:19→22:53)
[2018-02-15] MEDS: methylPREDNISolone 125 MG (Solu-MEDROL) VIAL ONE ×2 (22:19→22:54)
--- NOTE | 2018-02-15 22:35 | ED General ---
General Stated Complaint: THROAT TIGHT, TOUNGE/LIP NUMB, ALLERGIC REACTION Source of Information: Patient Exam Limitations: No Limitations History of Present Illness Date Seen by Provider: Feb 15, 2018 Time Seen by Provider: 21:55 Initial Comments Here with swelling of the right lower lip, right side of the time feeling swelling and itching in the throat. Also has hives on the right flank and right buttock. Has been seen multiple times over the last month for intermittent angioedema and hives consistent with allergic reaction. Patient has no idea what precipitates the allergic reaction. He does have appointment with rheumatology on February 27. Has been prescribed EpiPen. Not currently on steroids. Has taken his Zantac and Zyrtec tonight. Did not take Benadryl. Denies nausea or vomiting and denies abdominal pain. Timing/Duration: 1 Hour Severity: Moderate Associated Systoms: No Cough, No Fever/Chills, No Nausea/Vomiting, No Shortness of Air Allergies and Home Medications Allergies Coded Allergies: JR Inhibitors (Unverified Allergy, Unknown, 06/08/14) ANGIOEDEMA OF TONGUE Home Medications Aspirin 81 Mg Tabec, 81 MG PO DAILY, (Reported) Carvedilol 12.5 Mg Tablet, 12.5 MG GT BID Prescribed by: TIM LOGAN on 06/08/14 0831 Epinephrine 0.3 Mg/0.3 Ml Pen.injctr, 0.3 MG IM PRN PRN for anaphylaxis or angioedema Prescribed by: SARAH GARCIA on 02/17/14 2021 Epinephrine 0.3 Mg/0.3 Ml Auto.injct, 0.3 MG IJ Q15M PRN for anaphylaxis Prescribed by: KIM CRUZ on 02/05/18 1101 Epinephrine 0.3 Mg/0.3 Ml Auto.injct, 0.3 MG IJ Q20M PRN for angioedema Prescribed by: KIM CRUZ on 02/12/18 0909 Fish Oil/Dha/Epa 1 Each Capsule, 1 EACH PO DAILY, (Reported) Metformin Hcl 500 Mg Tab.sr.24h, 1 EACH PO BID WITH MEALS, (Reported) Multivitamins 1 Tab Tablet, 1 TAB PO DAILY, (Reported) Omeprazole 20 Mg Capsule.dr, 20 MG PO DAILY, (Reported) Potassium Chloride 10 Meq Tablet.sa, 1 EACH PO DAILY WITH FOOD, (Reported) Prednisone 20 Mg Tab, 20 MG PO DAILY@0700 Prescribed by: TIM LOGAN on 06/08/14 0829 Prednisone 20 Mg Tab, 60 MG PO DAILY Prescribed by: FOX STRICKLAND on 01/31/18 1613 Prednisone 20 Mg Tab, 20 MG PO DAILY Prescribed by: KIM CRUZ on 02/05/18 1101 Sitagliptin Phosphate 100 Mg Tablet, 1 EACH PO DAILY, (Reported) Vit A/Vit C/Vit E/Zinc/Copper 1 Each Tablet, 1 EACH PO DAILY, (Reported) [Fiber Therapy] , 2 TAB PO DAILY, (Reported) Patient Home Medication List Home Medication List Reviewed: Yes Review of Systems Review of Systems Constitutional: see HPI; No chills, No fever EENTM: mouth swelling, throat swelling Respiratory: No cough, No short of breath Cardiovascular: No chest pain, No edema Gastrointestinal: No abdominal pain, No nausea, No vomiting Genitourinary: no symptoms reported Musculoskeletal: no symptoms reported Skin: see HPI, change in color, pruritus, rash All Other Systems Reviewed Negative Unless Noted: Yes Past Knakwqi-Polqap-Vnscar Hx Past Med/Social Hx: Reviewed Nursing Past Med/Soc Hx Patient Social History Alcohol Use: Denies Use Recreational Drug Use: No Smoking Status: Never a Smoker 2nd Hand Smoke Exposure: No Recent Foreign Travel: No Contact w/Someone Who Travel: No Recent Hopitalizations: Yes Immunizations Up To Date Date of Pneumonia Vaccine: Jun 07, 2009 Date of Influenza Vaccine: Apr 07, 2014 Past Medical History Surgeries: Yes Appendectomy, Cardiac, Coronary Stent, Neurological, Orthopedic, Tracheostomy, Transurethral Resection, Vasectomy Respiratory: No Cardiac: Yes (STENT PLACEMENT) Coronary Artery Disease, High Cholesterol, Hypertension Neurological: Yes (INTRACRANIAL BLEED) Neuropathy Reproductive Disorders: No Genitourinary: Yes Prostate Problems Gastrointestinal: No Musculoskeletal: Yes (RIGHT FOOT DROP, LUMBAR RADICULOPATHY/NERVE DAMAGE) Foot Drop, Chronic Back Pain Endocrine: Yes Diabetes, Non-Insulin dep HEENT: No Cancer: No Psychosocial: No Integumentary: No Blood Disorders: Yes (POLYCYTHEMIA) Adverse Reaction/Blood Tranf: No Family Medical History Reviewed Nursing Family Hx Physical Exam Vital Signs Vital Signs - First Documented 02/15/18 21:56 Temp 99.0 Pulse 70 Resp 14 B/P (MAP) 160/99 (119) Pulse Ox 97 O2 Delivery Room Air Capillary Refill : Height, Weight, BMI Height: 6'1.00" Weight: 261lbs. oz. 118.226189bl; BMI Method:Stated General Appearance: No Apparent Distress, WD/WN HEENT: PERRL/EOMI, Pharynx Normal, Other (swelling to the right lower lip and right side of the tongue.) Neck: Non Tender, Supple Respiratory: Lungs Clear, Normal Breath Sounds Cardiovascular: Regular Rate, Rhythm, No Murmur Gastrointestinal: Non Tender, Soft Back: Normal Inspection, No CVA Tenderness, No Vertebral Tenderness Extremity: Normal Inspection, Normal Range of Motion, Non Tender Neurologic/Psychiatric: Alert, Oriented x3 Skin: Normal Color, Warm/Dry Progress/Results/Core Measures Suspected Sepsis SIRS Temperature: Pulse: Respiratory Rate: Blood Pressure / Mean: Results/Orders My Orders Orders - KING SOTOMAYOR MD Diphenhydramine Injection (Benadryl Inje (02/15/18 21:58) Epinephrine 1 Mg Injection (Adrenalin I (02/15/18 21:59) Methylprednisolone Sod Succ (Solu-Medrol (02/15/18 21:59) Diphenhydramine Injection (Benadryl Inje (02/15/18 22:06) Epinephrine 1 Mg Injection (Adrenalin I (02/15/18 22:06) Methylprednisolone Sod Succ (Solu-Medrol (02/15/18 22:06) Monitor-Rhythm Ecg Trace Only (02/15/18 22:06) Dexamethasone Pf Injection (Decadron Pf (02/16/18 00:51) Medications Given in ED Vital Signs/I&O 02/15/18 21:56 Temp 99.0 Pulse 70 Resp 14 B/P (MAP) 160/99 (119) Pulse Ox 97 O2 Delivery Room Air Capillary Refill : Progress Note : Progress Note Seen and evaluated. Given patient's history and multiple visits as well as the concern for throat swelling we will go ahead and do epinephrine IM. IV established and Solu-Medrol 125 mg IV and Benadryl 50 mg IV ordered. Monitor patient. 0200: Is doing much better. We did give Decadron 10 mg IV to cover steroid requirement for a few days. We'll continue to monitor. 0240: The swelling of the lip is essentially resolved. The hives on the right side is markedly improved and almost completely resolved. Patient states he feels better. He does have some upper respiratory congestion and actually may be suffering from upper respiratory illness and patient certainly has had enough contact with ill persons due to multiple ER visits. This is discussed with patient and family and they agree as well. Overall we all agree that the patient is safe for discharge home. Discharged home with return precautions. Patient verbalize understanding instructions and agreement with plan. Departure Impression Primary Impression: Angioedema Qualified Codes: T78.3XXA - Angioneurotic edema, initial encounter Disposition: 01 HOME, SELF-CARE Condition: Improved Departure-Patient Inst. Decision time for Depature: 02:42 Referrals: TIM LOGAN DO (PCP/Family) Primary Care Physician Patient Instructions: Anaphylaxis (DC), Angioedema (DC) Add. Discharge Instructions: Call Dr. Logan's office in the morning to see if she can help with getting earlier appointment with research animal attendant. Return for any worsening of symptoms. You may continue the Pepcid and/or Benadryl as needed for hives. Continue to chart your diet. Return for worse pain, fever, vomiting, weakness, breathing problems or other concerns as needed. Copy Copies To 1: TIM LOGAN TIMOTHY D MD Feb 15, 2018 22:35
[2018-02-16] MEDS ORDERED: DEXAMETHASONE PF 10 MG/ML (DECADRON) VIAL IV STA (00:51)
[2018-02-16 02:53] VITALS: BP 144/91
== END 2018-02-16 02:53 | disposition home or self-care (01) ==
LOC: EDUNIT# 21:50 → ER 21:51
DX: T78.3XXA Angioneurotic edema, initial encounter (principal); I25.10 Atherosclerotic heart disease of native coronary artery without angina pectoris; E78.00 Pure hypercholesterolemia, unspecified; I10 Essential (primary) hypertension; E11.42 Type 2 diabetes mellitus with diabetic polyneuropathy; Z88.8 Allergy status to other drugs, medicaments and biological substances; Z79.82 Long term (current) use of aspirin; Z79.84 Long term (current) use of oral hypoglycemic drugs; Z79.52 Long term (current) use of systemic steroids; Z95.5 Presence of coronary angioplasty implant and graft; Z90.89 Acquired absence of other organs; Z93.0 Tracheostomy status; Z98.52 Vasectomy status
CPT/HCPCS: 93041; 96372; 96374; 96375

== ENCOUNTER 2018-03-02 20:38 | Emergency (ER) | payer MEDICARE, OTHER ==
[~2018-03-02] VITALS: Ht 185.4 cm; Wt 118.4 kg
--- OUTSIDE RECORDS SUMMARY | 2018-03-02 20:45 | XMS REPORT | Continuity of Care Document ---
Author Author [facility] Organization [facility] Address Unknown Phone Unavailable Allergies Active Description Code Type Severity Reaction Onset Reported/Identified Relationship to Patient Clinical Status Yes No Known Drug Allergies [id number] Drug Allergy Unknown N/A 09/28/2008 Yes JR Inhibitors [id number] Drug Allergy Unknown N/A 06/08/2014 Medications There [...] TIM S Ot 401.9 HYPERTENSION NOS 01/02/2017 DANNANDER DO, TIM S Ot K76.0 FATTY (CHANGE OF) LIVER, NOT ELSEWHERE C 01/02/2017 DANNANDER , TIM S Ot R74.8 ABNORMAL LEVELS OF OTHER SERUM ENZYMES 01/31/2018 DANNANDER , TIM S Ot K76.0 FATTY (CHANGE OF) LIVER, NOT ELSEWHERE C 01/31/2018 DANNANDER , TIM S Ot R74.8 ABNORMAL LEVELS OF OTHER SERUM ENZYMES 01/31/2018 FOX STRICKLAND DO Ot E11.9 TYPE 2 DIABETES MELLITUS WITHOUT COMPLIC 01/31/2018 FOX STRICKLAND DO Ot E78.00 PURE HYPERCHOLESTEROLEMIA, UNSPECIFIED 01/31/2018 FOX STRICKLAND DO Ot I10 ESSENTIAL (PRIMARY) HYPERTENSION 01/31/2018 FOX STRICKLAND DO Ot I25.10 ATHSCL HEART DISEASE OF [place] CORONARY 01/31/2018 FOX STRICKLAND DO Ot L50.9 URTICARIA, UNSPECIFIED 01/31/2018 FOX STRICKLAND DO Ot T78.3XXA ANGIONEUROTIC EDEMA, INITIAL ENCOUNTER 01/31/2018 FOX STRICKLAND DO Ot T78.40XA ALLERGY, UNSPECIFIED, INITIAL ENCOUNTER 01/31/2018 FOX STRICKLAND DO Ot Z79.52 CUSTODIAL (CURRENT) USE OF SYSTEMIC STER 01/31/2018 FOX STRICKLAND DO Ot Z79.82 CUSTODIAL (CURRENT) USE OF ASPIRIN 01/31/2018 FOX STRICKLAND DO Ot Z79.84 CUSTODIAL (CURRENT) USE OF ORAL HYPOGLYC 01/31/2018 OFX STRICKLAND DO Ot Z87.820 PERSONAL HISTORY OF TRAUMATIC BRAIN INJU 01/31/2018 EMFOX Rowell DO Ot Z88.8 ALLERGY STATUS TO OTH DRUG/MEDS/BIOL SUB 01/31/2018 FOX STRICKLAND DO Ot Z90.89 ACQUIRED ABSENCE OF OTHER ORGANS 01/31/2018 FOX STRICKLAND DO Ot Z93.0 TRACHEOSTOMY STATUS 01/31/2018 FOX STRICKLAND DO Ot Z95.5 PRESENCE OF CORONARY ANGIOPLASTY IMPLANT 01/31/2018 FOX STRICKLAND DO Ot Z98.52 VASECTOMY STATUS 02/05/2018 KIM CRUZ MD Ot E11.9 TYPE 2 DIABETES MELLITUS WITHOUT COMPLIC 02/05/2018 KIM CRUZ MD Ot E78.00 PURE HYPERCHOLESTEROLEMIA, UNSPECIFIED 02/05/2018 KIM CRUZ MD Ot I10 ESSENTIAL (PRIMARY) HYPERTENSION 02/05/2018 KIM CRUZ MD Ot I25.10 ATHSCL HEART DISEASE OF 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) USE OF ASPIRIN 02/05/2018 KIM CRUZ MD Ot Z79.84 COMMERCIAL DRONE SOFTWARE DEVELOPER (CURRENT) USE OF ORAL HYPOGLYC 02/05/2018 KIM CRUZ MD Ot Z88.8 ALLERGY STATUS TO OTH DRUG/MEDS/BIOL SUB 02/05/2018 KIM CRUZ MD Ot Z90.89 ACQUIRED ABSENCE OF OTHER ORGANS 02/05/2018 KIM CRUZ MD Ot Z93.0 TRACHEOSTOMY STATUS 02/05/2018 KIM CRUZ MD Ot Z95.5 PRESENCE OF CORONARY ANGIOPLASTY IMPLANT 02/05/2018 KIM CRUZ MD Ot Z98.52 VASECTOMY STATUS 02/07/2018 KIM CRUZ MD Ot E11.9 TYPE 2 DIABETES MELLITUS WITHOUT COMPLIC 02/07/2018 KIM CRUZ MD Ot E78.00 PURE HYPERCHOLESTEROLEMIA, UNSPECIFIED 02/07/2018 KIM CRUZ MD Ot I10 ESSENTIAL (PRIMARY) HYPERTENSION 02/07/2018 KIM CRUZ MD Ot I25.10 ATHSCL HEART DISEASE OF 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 (CURRENT) USE OF ASPIRIN 02/14/2018 KIM CRUZ MD, Ot Z79.84 CUSTODIAL (CURRENT) USE OF ORAL HYPOGLYC 02/14/2018 KIM CRUZ MD Ot Z88.8 ALLERGY STATUS TO OTH DRUG/MEDS/BIOL SUB 02/14/2018 KIM CRUZ MD Ot Z90.79 ACQUIRED ABSENCE OF OTHER GENITAL ORGAN( 02/14/2018 KIM CRUZ MD, Ot Z90.89 ACQUIRED ABSENCE OF OTHER ORGANS 02/14/2018 KIM CRUZ MD, Ot Z93.0 TRACHEOSTOMY STATUS 02/14/2018 KIM CRUZ MD Ot Z95.5 PRESENCE OF CORONARY ANGIOPLASTY IMPLANT 02/14/2018 KIM CRUZ MD Ot Z98.52 VASECTOMY STATUS 02/17/2018 KING SOTOMAYOR MD Ot 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 02/17/2018 KING SOTOMAYOR MD Ot E78.00 PURE HYPERCHOLESTEROLEMIA, UNSPECIFIED 02/17/2018 KING SOTOMAYOR MD Ot I10 ESSENTIAL (PRIMARY) HYPERTENSION 02/17/2018 KING SOTOMAYOR MD Ot I25.10 ATHSCL HEART DISEASE OF 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 Type Provider Facility Loc./Unit Complaint [id number] 02/15/2018 21:51:00 02/16/2018 02:53:00 DIS Outpatient СВЕТЛАНА YARBROUGH, KING Garcia [facility] ER THROAT TIGHT, TOUNGE/ LIP NUMB, ALLERGIC REACTION [id number] 02/12/2018 03:51:00 02/12/2018 09:58:00 DIS Outpatient KIM CRUZ MD [facility] ER ALLERGIC REACTION [id number] 02/05/2018 08:36:00 02/05/2018 11:33:00 DIS Emergency KIM CRUZ MD [facility] ER HIVES;TONGUE SWELLING [id number] 01/31/2018 13:32:00 01/31/2018 16:26:00 DIS Emergency FOX STRICKLAND DO [facility] ER ALLERGIC REACTION, FACE, LIP SWELLING [id number] 12/10/2016 06:50:00 12/10/2016 23:59:59 CLS Outpatient TIM LOGAN DO [facility] RAD ELEVATED LFT'S [id number] 01/03/2015 18:00:00 02/23/2015 00:01:00 DIS Outpatient TIM LOGAN DO [facility] DSME DM TYPE 2 [id number] 09/13/2014 09:48:00 12/12/2014 00:01:00 DIS Outpatient TIM LOGAN DO [facility] DSME DM TYPE 2 [id number] 06/07/2014 16:55:00 06/08/2014 10:40:00 DIS Inpatient TIM LOGAN DO [facility] 4TH ANGIOEDEMA OF TONGUE; SUSPECT 2 DEGREE TO JR INHIB [id number] 02/17/2014 18:16:00 02/17/2014 20:21:00 DIS Emergency SARAH CHUNG MD [facility] ER ALLERGIC REACTION/ TONGUE SWELLING [id number] 03/02/2018 20:40:00 ACT Emergency SARAH CHUNG MD [facility] ER ALLERGIC REACTION, HIVES [id number] 01/04/2015 09:37:35 ACT Document Registration 08/02/16 02/03/2018 10:19:48 02/03/2018 23:59:59 CLS Outpatient Tim Logan
[2018-03-02] MEDS ORDERED: methylPREDNISolone 125 MG (Solu-MEDROL) VIAL IVP ONE (21:15)
[2018-03-02] MEDS ORDERED: diphenhydrAMINE 50 MG/ML INJ (BENADRYL) IVP ONE (21:15)
[2018-03-02] MEDS ORDERED: FAMOTIDINE 20MG/2ML IV (PEPCID) IVP ONE (21:15)
[2018-03-02] MEDS ORDERED: EPINEPHrine INJECTION 1 MG/ML AMP IM ONE (22:00)
--- NOTE | 2018-03-02 22:57 | ED General ---
General Chief Complaint: Allergic Reaction Stated Complaint: ALLERGIC REACTION, HIVES Source of Information: Patient, Family, Old Records Exam Limitations: No Limitations History of Present Illness Date Seen by Provider: Mar 02, 2018 Time Seen by Provider: 20:53 Initial Comments This 67-year-old gentleman presents to the emergency room with a couple of large hives on his trunk and some right sided tongue swelling. He has been seen multiple times for angioedema and has been referred to Dr. Garber in [place]. So far no etiology for his angioedema has been identified. He is now taking Pepcid and long-acting antihistamines prophylactically. He reports his present case has been persistent since this morning. However, it is less severe and has not advanced as quickly as prior episodes. He and his report that he usually requires epinephrine therapy to control the symptoms. Patient took 2 doses of Benadryl 50 mg at home at approximately 11:00 and 17: 00. He also took 40 mg of Pepcid this morning. Allergies and Home Medications Allergies Coded Allergies: JR Inhibitors (Unverified Allergy, Unknown, 06/08/14) ANGIOEDEMA OF TONGUE Home Medications Aspirin 81 Mg Tabec, 81 MG PO DAILY, (Reported) Carvedilol 12.5 Mg Tablet, 12.5 MG GT BID Prescribed by: TIM LOZOYA on 06/08/14 0831 Epinephrine 0.3 Mg/0.3 Ml Pen.injctr, 0.3 MG IM PRN PRN for anaphylaxis or angioedema Prescribed by: SARAH GARCIA on 02/17/14 202 Epinephrine 0.3 Mg/0.3 Ml Auto.injct, 0.3 MG IJ Q15M PRN for anaphylaxis Prescribed by: KIM CRUZ on 02/05/18 1101 Epinephrine 0.3 Mg/0.3 Ml Auto.injct, 0.3 MG IJ Q20M PRN for angioedema Prescribed by: KIM CRUZ on 02/12/18 0909 Fish Oil/Dha/Epa 1 Each Capsule, 1 EACH PO DAILY, (Reported) Metformin Hcl 500 Mg Tab.sr.24h, 1 EACH PO BID WITH MEALS, (Reported) Multivitamins 1 Tab Tablet, 1 TAB PO DAILY, (Reported) Omeprazole 20 Mg Capsule.dr, 20 MG PO DAILY, (Reported) Potassium Chloride 10 Meq Tablet.sa, 1 EACH PO DAILY WITH FOOD, (Reported) Prednisone 20 Mg Tab, 20 MG PO DAILY@0700 Prescribed by: TIM LOZOYA on 06/08/14 0829 Prednisone 20 Mg Tab, 60 MG PO DAILY Prescribed by: FOX STRICKLAND on 01/31/18 1613 Prednisone 20 Mg Tab, 20 MG PO DAILY Prescribed by: KIM CRUZ on 02/05/18 1101 Sitagliptin Phosphate 100 Mg Tablet, 1 EACH PO DAILY, (Reported) Vit A/Vit C/Vit E/Zinc/Copper 1 Each Tablet, 1 EACH PO DAILY, (Reported) [Fiber Therapy] , 2 TAB PO DAILY, (Reported) Patient Home Medication List Home Medication List Reviewed: Yes Review of Systems Review of Systems Constitutional: no symptoms reported EENTM: see HPI Respiratory: no symptoms reported Cardiovascular: no symptoms reported Gastrointestinal: no symptoms reported Genitourinary: no symptoms reported Musculoskeletal: no symptoms reported Skin: see HPI Psychiatric/Neurological: No Symptoms Reported Hematologic/Lymphatic: No Symptoms Reported Immunological/Allergic: see HPI Past Lnlquzc-Jjhfud-Uxnqeg Hx Past Med/Social Hx: Reviewed and Corrections made Patient Social History 2nd Hand Smoke Exposure: No Recent Foreign Travel: No Contact w/Someone Who Travel: No Recent Hopitalizations: Yes Immunizations Up To Date Date of Pneumonia Vaccine: Jun 07, 2009 Date of Influenza Vaccine: Apr 07, 2014 Past Medical History Surgeries: Yes Appendectomy, Cardiac, Coronary Stent, Neurological, Orthopedic, Tracheostomy, Transurethral Resection, Vasectomy Respiratory: No Cardiac: Yes (STENT PLACEMENT) Coronary Artery Disease, High Cholesterol, Hypertension Neurological: Yes (INTRACRANIAL BLEED) Neuropathy Reproductive Disorders: No Genitourinary: Yes Prostate Problems Gastrointestinal: No Musculoskeletal: Yes (RIGHT FOOT DROP, LUMBAR RADICULOPATHY/NERVE DAMAGE) Foot Drop, Chronic Back Pain Endocrine: Yes Diabetes, Non-Insulin dep HEENT: No Cancer: No Psychosocial: No Integumentary: Yes (Recurrent angioedema) Blood Disorders: Yes (POLYCYTHEMIA) Adverse Reaction/Blood Tranf: No Physical Exam Vital Signs Vital Signs - First Documented 03/02/18 20:46 Temp 98.6 Pulse 68 Resp 18 B/P (MAP) 161/99 (119) Pulse Ox 95 O2 Delivery Nasal Cannula Capillary Refill : Height, Weight, BMI Height: 6'1.00" Weight: 261lbs. oz. 118.959937jy; BMI Method:Stated General Appearance: No Apparent Distress, WD/WN HEENT: PERRL/EOMI, Pharynx Normal, Other (Right-sided tongue swelling) Neck: Normal Inspection Respiratory: Lungs Clear, Normal Breath Sounds, No Accessory Muscle Use, No Respiratory Distress Cardiovascular: Regular Rate, Rhythm, No Edema, No Murmur Gastrointestinal: Non Tender, Soft Extremity: Normal Inspection, No Pedal Edema Neurologic/Psychiatric: Alert, Oriented x3, No Motor/Sensory Deficits, Normal Mood/Affect, champion of sustainable design II-XII Norm as Tested Skin: Normal Color, Warm/Dry, Rash (Two large hives on the trunk on the left chest and in the left inguinal area.) Progress/Results/Core Measures Suspected Sepsis SIRS Temperature: Pulse: Respiratory Rate: Blood Pressure / Mean: Results/Orders My Orders Orders - SARAH CHUNG MD Saline Lock/Iv-Start (03/02/18 21:04) Methylprednisolone Sod Succ (Solu-Medrol (03/02/18 21:15) Diphenhydramine Injection (Benadryl Inje (03/02/18 21:15) Famotidine Injection (Pepcid Injection) (03/02/18 21:15) Epinephrine 1 Mg Injection (Adrenalin I (03/02/18 22:00) Medications Given in ED Vital Signs/I&O Capillary Refill : Progress Note : Progress Note Patient was treated with Solu-Medrol, IV Pepcid, and IV Benadryl. He was watched for a significant amount of time. He had subtle improvement in his symptoms. Patient is concerned about falling asleep with the symptoms and traveling to a grandparent stay activity tomorrow in [place]. We discussed adding the epinephrine injection which he desired to pursue to help ensure he was in good condition for his travels tomorrow. Epinephrine was administered and patient was discharged home after a short observation. He had progressive improvement of symptoms but not complete resolution. I stressed the importance of having Benadryl and his EpiPen with him during traveling. I also strongly advised that he identify hospitals along the Route and map those out before leaving. Departure Impression Primary Impression: Angioedema Qualified Codes: T78.3XXD - Angioneurotic edema, subsequent encounter Disposition: HOME, SELF-CARE Condition: Improved Departure-Patient Inst. Decision time for Depature: 22:56 Referrals: TIM LOZOYA DO (PCP/Family) Primary Care Physician Patient Instructions: Angioedema Add. Discharge Instructions: Continue your medications as previously prescribed. Keep your EpiPen with you at all times. For rebound in symptoms you may continue to take Benadryl ( diphenhydramine) up to 50 mg every 4 hours as needed. If symptoms become severe and involved the airway or breathing, take your EpiPen and call 911. If traveling tomorrow, make sure you know where hospitals are along your route and have Benadryl and your EpiPen available at all times. Follow-up with your primary care provider and band sewer as soon as possible. Avoid any possible triggers. All discharge instructions reviewed with patient and/or family. Voiced understanding. Copy Copies To 1: TIM LOZOYA JOSHUA T MD Mar 02, 2018 22:57
[2018-03-02 23:23] VITALS: BP 135/69
== END 2018-03-02 23:23 | disposition home or self-care (01) ==
LOC: EDUNIT# 20:38 → ER 20:40
DX: T78.3XXA Angioneurotic edema, initial encounter (principal); I25.10 Atherosclerotic heart disease of native coronary artery without angina pectoris; I10 Essential (primary) hypertension; E78.00 Pure hypercholesterolemia, unspecified; E11.42 Type 2 diabetes mellitus with diabetic polyneuropathy; Z88.8 Allergy status to other drugs, medicaments and biological substances; Z79.82 Long term (current) use of aspirin; Z79.84 Long term (current) use of oral hypoglycemic drugs; Z79.52 Long term (current) use of systemic steroids; Z90.89 Acquired absence of other organs; Z95.5 Presence of coronary angioplasty implant and graft; Z93.0 Tracheostomy status; Z98.52 Vasectomy status; Z90.79 Acquired absence of other genital organ(s)

== ENCOUNTER 2018-03-05 10:38 | Emergency (ER) | payer MEDICARE, OTHER ==
[~2018-03-05] VITALS: Ht 180.3 cm; Wt 108.9 kg
[2018-03-05] MEDS ORDERED: methylPREDNISolone 125 MG (Solu-MEDROL) VIAL ONE (10:45)
[2018-03-05] MEDS ORDERED: FAMOTIDINE 20MG/2ML IV (PEPCID) ONE (10:45)
[2018-03-05] MEDS ORDERED: diphenhydrAMINE 50 MG/ML INJ (BENADRYL) ONE (10:45)
[2018-03-05] MEDS ORDERED: EPINEPHrine INJECTION 1 MG/ML AMP ONE (10:46)
--- NOTE | 2018-03-05 10:54 | ED General ---
General Stated Complaint: ALLERGIC REACTION;TONGUE SWELLING;HIVES Source of Information: Patient Exam Limitations: No Limitations History of Present Illness Date Seen by Provider: Mar 05, 2018 Time Seen by Provider: 10:52 Initial Comments To ER with reports of allergic reaction. This began about 9 AM this morning when he noticed his tongue felt swollen and he had a single hive to the right axilla that is very itchy. This will be the sixth time over the past few weeks that he's had this. He has presented here to the emergency room each time, received Benadryl Solu-Medrol and epinephrine and his symptoms improved. Timing/Duration: 1-2 Days Severity: Moderate Allergies and Home Medications Allergies Coded Allergies: JR Inhibitors (Unverified Allergy, Unknown, 06/08/14) ANGIOEDEMA OF TONGUE Home Medications Aspirin 81 Mg Tabec, 81 MG PO DAILY, (Reported) Carvedilol 12.5 Mg Tablet, 12.5 MG GT BID Prescribed by: TIM LOGAN on 06/08/14 0831 Epinephrine 0.3 Mg/0.3 Ml Pen.injctr, 0.3 MG IM PRN PRN for anaphylaxis or angioedema Prescribed by: SARAH GARCIA on 02/17/14 2021 Epinephrine 0.3 Mg/0.3 Ml Auto.injct, 0.3 MG IJ Q15M PRN for anaphylaxis Prescribed by: KIM CRUZ on 02/05/18 1101 Epinephrine 0.3 Mg/0.3 Ml Auto.injct, 0.3 MG IJ Q20M PRN for angioedema Prescribed by: KIM CRUZ on 02/12/18 0909 Fish Oil/Dha/Epa 1 Each Capsule, 1 EACH PO DAILY, (Reported) Metformin Hcl 500 Mg Tab.sr.24h, 1 EACH PO BID WITH MEALS, (Reported) Multivitamins 1 Tab Tablet, 1 TAB PO DAILY, (Reported) Omeprazole 20 Mg Capsule.dr, 20 MG PO DAILY, (Reported) Potassium Chloride 10 Meq Tablet.sa, 1 EACH PO DAILY WITH FOOD, (Reported) Prednisone 20 Mg Tab, 20 MG PO DAILY@0700 Prescribed by: TIM LOGAN on 06/08/14 0829 Prednisone 20 Mg Tab, 60 MG PO DAILY Prescribed by: FOX STRICKLAND on 01/31/18 1613 Prednisone 20 Mg Tab, 20 MG PO DAILY Prescribed by: KIM CRUZ on 02/05/18 1101 Sitagliptin Phosphate 100 Mg Tablet, 1 EACH PO DAILY, (Reported) Vit A/Vit C/Vit E/Zinc/Copper 1 Each Tablet, 1 EACH PO DAILY, (Reported) [Fiber Therapy] , 2 TAB PO DAILY, (Reported) Patient Home Medication List Home Medication List Reviewed: Yes Review of Systems Review of Systems Constitutional: see HPI EENTM: see HPI Respiratory: no symptoms reported Cardiovascular: no symptoms reported Musculoskeletal: no symptoms reported Skin: see HPI Psychiatric/Neurological: No Symptoms Reported Hematologic/Lymphatic: No Symptoms Reported Immunological/Allergic: no symptoms reported Past Xkchimc-Tmlhgy-Efnhqt Hx Patient Social History 2nd Hand Smoke Exposure: No Recent Hopitalizations: Yes Immunizations Up To Date Date of Pneumonia Vaccine: Jun 07, 2009 Date of Influenza Vaccine: Apr 07, 2014 Seasonal Allergies Seasonal Allergies: Yes Past Medical History Surgeries: Yes Appendectomy, Cardiac, Coronary Stent, Neurological, Orthopedic, Tracheostomy, Transurethral Resection, Vasectomy Respiratory: No Cardiac: Yes (STENT PLACEMENT) Coronary Artery Disease, High Cholesterol, Hypertension Neurological: Yes (INTRACRANIAL BLEED) Neuropathy Reproductive Disorders: No Genitourinary: Yes Prostate Problems Gastrointestinal: No Musculoskeletal: Yes (RIGHT FOOT DROP, LUMBAR RADICULOPATHY/NERVE DAMAGE) Foot Drop, Chronic Back Pain Endocrine: Yes Diabetes, Non-Insulin dep HEENT: No Cancer: No Psychosocial: No Integumentary: Yes (Recurrent angioedema) Blood Disorders: Yes (POLYCYTHEMIA) Adverse Reaction/Blood Tranf: No Physical Exam Vital Signs Capillary Refill : Height, Weight, BMI Height: 6'1.00" Weight: 261lbs. 0.6oz. 118.319779rt; 34.56 BMI Method:Stated General Appearance: No Apparent Distress, WD/WN, Other (tongue swelling but no stridor. He is able to speak.) Eyes: Bilateral Eye Normal Inspection, Bilateral Eye PERRL, Bilateral Eye EOMI HEENT: PERRL/EOMI, TMs Normal Neck: Full Range of Motion, Normal Inspection Respiratory: Lungs Clear, Normal Breath Sounds, No Accessory Muscle Use, No Respiratory Distress Cardiovascular: Regular Rate, Rhythm, Normal Peripheral Pulses Gastrointestinal: Normal Bowel Sounds, Non Tender, Soft Neurologic/Psychiatric: Alert, Oriented x3 Skin: Normal Color, Warm/Dry, Other (single hive to the right axilla that measures about 4-5 cm in diameter) Progress/Results/Core Measures Suspected Sepsis SIRS Temperature: Pulse: Respiratory Rate: Laboratory Tests 03/05/18 12:26: White Blood Count 11.0 Blood Pressure / Mean: Laboratory Tests 03/05/18 12:26: Platelet Count 244 03/05/18 12:35: Creatinine 1.15, Total Bilirubin 1.5H Results/Orders Lab Results Laboratory Tests Test 03/05/18 12:26 03/05/18 12:35 03/05/18 12:45 Range/Units White Blood Count 11.0 4.3-11.0 10^3/uL Red Blood Count 4.57 4.35-5.85 10^6/uL Hemoglobin 14.7 13.3-17.7 G/DL Hematocrit 42 40-54 % Mean Corpuscular Volume 92 80-99 FL Mean Corpuscular Hemoglobin 32 25-34 PG Mean Corpuscular Hemoglobin Concent 35 32-36 G/DL Red Cell Distribution Width 13.3 10.0-14.5 % Platelet Count 244 130-400 10^3/uL Mean Platelet Volume 11.0 H 7.4-10.4 FL Neutrophils (%) (Auto) 78 H 42-75 % Lymphocytes (%) (Auto) 15 12-44 % Monocytes (%) (Auto) 5 0-12 % Eosinophils (%) (Auto) 2 0-10 % Basophils (%) (Auto) 0 0-10 % Neutrophils # (Auto) 8.6 H 1.8-7.8 X 10^3 Lymphocytes # (Auto) 1.7 1.0-4.0 X 10^3 Monocytes # (Auto) 0.5 0.0-1.0 X 10^3 Eosinophils # (Auto) 0.2 0.0-0.3 10^3/uL Basophils # (Auto) 0.0 0.0-0.1 10^3/uL Sodium Level 137 135-145 MMOL/L Potassium Level 4.5 3.6-5.0 MMOL/L Chloride Level 103 98-107 MMOL/L Carbon Dioxide Level 23 21-32 MMOL/L Anion Gap 11 5-14 MMOL/L Blood Urea Nitrogen 18 7-18 MG/DL Creatinine 1.15 0.60-1.30 MG/DL Estimat Glomerular Filtration Rate > 60 BUN/Creatinine Ratio 16 Glucose Level 162 H 70-105 MG/DL Calcium Level 9.8 8.5-10.1 MG/DL Corrected Calcium 9.5 8.5-10.1 MG/DL Total Bilirubin 1.5 H 0.1-1.0 MG/DL Aspartate Amino Transf (AST/SGOT) 54 H 5-34 U/L Alanine Aminotransferase (ALT/SGPT) 102 H 0-55 U/L Alkaline Phosphatase 60 40-136 U/L Total Protein 6.8 6.4-8.2 GM/DL Albumin 4.4 3.2-4.5 GM/DL Urine Color YELLOW Urine Clarity CLEAR Urine pH 6.5 5-9 Urine Specific [place] 1.010 L 1.016-1.022 Urine Protein NEGATIVE NEGATIVE Urine Glucose (UA) NEGATIVE NEGATIVE Urine Ketones NEGATIVE NEGATIVE Urine Nitrite NEGATIVE NEGATIVE Urine Bilirubin NEGATIVE NEGATIVE Urine Urobilinogen NORMAL NORMAL MG/DL Urine Leukocyte Esterase NEGATIVE NEGATIVE Urine RBC (Auto) NEGATIVE NEGATIVE Urine RBC NONE /HPF Urine WBC NONE /HPF Urine Squamous Epithelial Cells RARE /HPF Urine Crystals NONE /LPF Urine Bacteria NEGATIVE /HPF Urine Casts NONE /LPF Urine Mucus NEGATIVE /LPF Urine Culture Indicated NO My Orders Orders - PATRICIA HERNANDEZ TAPER OPERATOR Epinephrine 1 Mg Injection (Adrenalin I (03/05/18 11:00) Methylprednisolone Sod Succ (Solu-Medrol (03/05/18 11:00) Famotidine Injection (Pepcid Injection) (03/05/18 11:00) Diphenhydramine Injection (Benadryl Inje (03/05/18 11:00) Iv Heplock-Insert (Order) (03/05/18 10:47) Diphenhydramine Injection (Benadryl Inje (03/05/18 10:45) Methylprednisolone Sod Succ (Solu-Medrol (03/05/18 10:45) Famotidine Injection (Pepcid Injection) (03/05/18 10:45) Epinephrine 1 Mg Injection (Adrenalin I (03/05/18 10:46) Complement C4 Serum (03/05/18 11:12) C1 Esterase Inhibitor Function (03/05/18 11:12) C1 Esterase Inhibitor Qnt (03/05/18 11:12) Anti-Nuclear Ab (Kayla) Analyzer (03/05/18 11:12) Cbc With Automated Diff (03/05/18 12:26) Comprehensive Metabolic Panel (03/05/18 12:26) Ua Culture If Indicated (03/05/18 12:26) Ct Head Wo (03/05/18 12:26) Medications Given in ED Current Medications Medications Dose Ordered Sig/Luis F Route Start Time Stop Time Status Last Admin Dose Admin Diphenhydramine HCl 25 mg ONCE ONCE IVP 03/05/18 11:00 03/05/18 11:01 DC 03/05/18 10:52 25 MG Epinephrine HCl 0.3 mg ONCE ONCE IM 03/05/18 11:00 03/05/18 11:01 DC 03/05/18 10:53 0.3 MG Famotidine 20 mg ONCE ONCE IVP 03/05/18 11:00 03/05/18 11:01 DC 03/05/18 10:52 20 MG Methylprednisolone Sodium Succinate 125 mg ONCE ONCE IVP 03/05/18 11:00 03/05/18 11:01 DC 03/05/18 10:52 125 MG Vital Signs/I&O Capillary Refill : Departure Communication (Admissions) 1116-at this time he does report sensation of reduced swelling in the tongue after epinephrine IM. Still appears swollen tho. Will continue to observe. 1233- at the bedside states that he has seemed a little confused lately. They have been attributing this to the Benadryl that he's been taking. He does state that he is dizzy right now worse with movement such as turning his head to either side. 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 This was greater than 10 years ago. I will order a CT of the head noncontrast and labs and urinalysis Impression Primary Impression: Angioedema Additional Impression: angioedema with wheals Disposition: HOME, SELF-CARE Condition: Improved Departure-Patient Inst. Decision time for Depature: 11:16 Referrals: TIM LOGAN DO (PCP/Family) Primary Care Physician Patient Instructions: Angioedema Add. Discharge Instructions: 1. Return to ER for any concerns 2. Follow up with Dr Logan. If you do not already, take a long acting non- sedating antihistamine daily such as claritin or shalom and as well as an acid news internship like pepcid. PATRICIA HERNANDEZ APRN Mar 05, 2018 10:54
[2018-03-05] MEDS ORDERED: EPINEPHrine INJECTION 1 MG/ML AMP IM ONE (11:00)
[2018-03-05] MEDS ORDERED: methylPREDNISolone 125 MG (Solu-MEDROL) VIAL IVP ONE (11:00)
[2018-03-05] MEDS ORDERED: diphenhydrAMINE 50 MG/ML INJ (BENADRYL) IVP ONE (11:00)
[2018-03-05] MEDS ORDERED: FAMOTIDINE 20MG/2ML IV (PEPCID) IVP ONE (11:00)
[2018-03-05 12:52] LABS: BILIRUBIN,URINE NEGATIVE (NEGATIVE); CLARITY,URINE CLEAR; COLOR,URINE YELLOW; GLUCOSE, URINE (UA) NEGATIVE (NEGATIVE); KETONES,URINE NEGATIVE (NEGATIVE); LEUKOCYTE ESTERASE ,URINE NEGATIVE (NEGATIVE); NITRITE,URINE NEGATIVE (NEGATIVE); PH,URINE 6.5 (5-9); PROTEIN,URINE NEGATIVE (NEGATIVE); UROBILINOGEN,URINE NORMAL (NORMAL)
[2018-03-05 12:53] LABS: BASOPHILS % (AUTO) 0 % (0-10); EOSINOPHILS # (AUTO) 0.2 10^3/uL (0.0-0.3); EOSINOPHILS % (AUTO) 2 % (0-10); HEMATOCRIT 42 % (40-54); HEMOGLOBIN 14.7 G/DL (13.3-17.7); LYMPHOCYTES # (AUTO) 1.7 X 10^3 (1.0-4.0); LYMPHOCYTES % (AUTO) 15 % (12-44); MEAN CORPUSCULAR HEMOGLOBIN 32 PG (25-34); MEAN CORPUSCULAR HGB CONC 35 G/DL (32-36); MEAN CORPUSCULAR VOLUME 92 FL (80-99); MONOCYTES # (AUTO) 0.5 X 10^3 (0.0-1.0); MONOCYTES % (AUTO) 5 % (0-12); NEUTROPHILS # (AUTO) 8.6 X 10^3 (1.8-7.8); NEUTROPHILS % (AUTO) 78 % (42-75); PLATELET COUNT 244 10^3/uL (130-400); RED BLOOD COUNT 4.57 10^6/uL (4.35-5.85); RED CELL DISTRIBUTION WIDTH 13.3 % (10.0-14.5)
[2018-03-05 13:06] LABS: BACTERIA,URINE NEGATIVE /HPF; SQUAMOUS EPITHELIAL CELL,UR RARE /HPF
[2018-03-05 13:12] LABS: ALANINE AMINOTRANSFERASE 102 U/L (0-55); ALBUMIN 4.4 GM/DL (3.2-4.5); ALKALINE PHOSPHATASE 60 U/L (40-136); BILIRUBIN,TOTAL 1.5 MG/DL (0.1-1.0); BUN/CREATININE RATIO 16; CALCIUM 9.8 MG/DL (8.5-10.1); CARBON DIOXIDE 23 MMOL/L (21-32); CHLORIDE 103 MMOL/L (98-107); CREATININE SERUM 1.15 MG/DL (0.60-1.30); GFR ESTIMATED > 60; GLUCOSE 162 MG/DL (70-105); POTASSIUM 4.5 MMOL/L (3.6-5.0); SODIUM 137 MMOL/L (135-145); TOTAL PROTEIN 6.8 GM/DL (6.4-8.2)
--- NOTE | 2018-03-05 13:27 | Diagnostic Imaging Report ---
PROCEDURE: CT head without contrast. TECHNIQUE: Multiple contiguous axial images were obtained through the brain without the use of intravenous contrast. INDICATION: History of cerebral hemorrhage. Tongue swelling. Previous aneurysm repair. 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 Multiple metallic foci are noted consistent with previous surgical intervention. Overlying craniectomy defect is also present. Overall, findings are stable compared to prior exam. There are also scattered and confluent areas of decreased attenuation within the subcortical and periventricular deep white matter consistent with chronic small vessel ischemic changes. There is no new loss of garnett-white matter junction differentiation to suggest new acute territorial infarct. Ventricles and cortical sulci are diffusely prominent consistent with underlying age-related parenchymal volume loss. There is no new mass effect or midline shift. There is no evidence of intra-axial or extra-axial intracranial hemorrhage. No other extra-axial masses or fluid collections are identified. Remainder of the bony calvarium is intact. Paranasal sinuses show mild mucosal thickening of bilateral maxillary sinuses. Mastoid air cells are clear. IMPRESSION: 1. No new acute intracranial abnormality. No CT evidence of acute infarct, mass, nor hemorrhage. 2. Age-related parenchymal volume loss and chronic small vessel ischemic changes in the deep white matter. 3. Stable postoperative changes to the left posterior fossa as described above. Dictated by: Dictated on workstation # [id number]
[2018-03-05 13:48] VITALS: BP 149/88
== END 2018-03-05 13:58 | disposition home or self-care (01) ==
LOC: EDUNIT# 10:38 → ER 10:39
DX: T78.3XXA Angioneurotic edema, initial encounter (principal); I25.10 Atherosclerotic heart disease of native coronary artery without angina pectoris; E78.00 Pure hypercholesterolemia, unspecified; I10 Essential (primary) hypertension; E11.9 Type 2 diabetes mellitus without complications; Z88.8 Allergy status to other drugs, medicaments and biological substances; Z79.82 Long term (current) use of aspirin; Z87.820 Personal history of traumatic brain injury; Z79.84 Long term (current) use of oral hypoglycemic drugs; Z79.52 Long term (current) use of systemic steroids; Z90.89 Acquired absence of other organs; Z95.5 Presence of coronary angioplasty implant and graft; Z93.0 Tracheostomy status; Z98.52 Vasectomy status; Z90.79 Acquired absence of other genital organ(s)
CPT/HCPCS: 36415; 70450; 80053; 81000; 85025

== ENCOUNTER 2018-03-11 17:54 | Emergency (ER) | payer MEDICARE, OTHER ==
[~2018-03-11] VITALS: Ht 180.3 cm; Wt 108.9 kg
--- OUTSIDE RECORDS SUMMARY | 2018-03-11 18:42 | XMS REPORT | Continuity of Care Document ---
Author Author [facility] Organization [facility] Address Unknown Phone Unavailable Allergies Active Description Code Type Severity Reaction Onset Reported/Identified Relationship to Patient Clinical Status Yes No Known Drug Allergies [id number] Drug Allergy Unknown N/A 09/28/2008 Yes JR Inhibitors [id number] Drug Allergy Unknown N/A 06/08/2014 Medications There [...] S Ot E932.0 ADV EFF CORTICOSTEROIDS 10/23/2014 DANNANDEZEQUIEL DO, TIM S Ot 250.02 10/23/2014 DANNANDER [...] DO Ot I25.10 ATHSCL HEART DISEASE OF [place] CORONARY 01/31/2018 FOX STRICKLAND DO Ot L50.9 URTICARIA, UNSPECIFIED 01/31/2018 FOX STRICKLAND DO Ot T78.3XXA ANGIONEUROTIC EDEMA, INITIAL ENCOUNTER 01/31/2018 FOX STRICKLAND DO Ot T78.40XA ALLERGY, UNSPECIFIED, INITIAL ENCOUNTER 01/31/2018 FOX STRICKLAND DO Ot 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.52 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 OF SYSTEMIC STER 01/31/2018 FOX STRICKLAND DO Ot Z79.82 CARE HOME (CURRENT) USE OF ASPIRIN 01/31/2018 FOX STRICKLAND DO Ot Z79.84 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 OF ORAL HYPOGLYC 01/31/2018 FOX STRICKLAND DO Ot Z87.820 PERSONAL HISTORY OF [...] MD Ot I25.10 ATHSCL HEART DISEASE OF [place] CORONARY 02/05/2018 KIM CRUZ MD Ot K14.8 OTHER DISEASES OF TONGUE 02/05/2018 KIM CRUZ MD Ot T78.3XXA ANGIONEUROTIC EDEMA, INITIAL ENCOUNTER 02/05/2018 KIM CRUZ MD Ot Z79.52 CARE HOME (CURRENT) USE OF SYSTEMIC STER 02/05/2018 KIM CRUZ MD Ot Z79.82 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 OF ASPIRIN 02/05/2018 KIM CRUZ MD Ot Z79.84 CARE HOME (CURRENT) USE OF ORAL HYPOGLYC 02/05/2018 KIM [...] MD Ot I25.10 ATHSCL HEART DISEASE OF [place] CORONARY 02/07/2018 KIM CRUZ MD Ot K14.8 OTHER DISEASES OF TONGUE 02/07/2018 KIM CRUZ MD Ot T78.3XXA ANGIONEUROTIC EDEMA, INITIAL ENCOUNTER 02/07/2018 KIM CRUZ MD Ot Z79.52 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 OF SYSTEMIC STER 02/07/2018 KIM CRUZ MD Ot Z79.82 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 OF ASPIRIN 02/07/2018 KIM CRUZ MD Ot Z79.84 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 OF ORAL HYPOGLYC 02/07/2018 KIM CRUZ MD Ot Z88.8 ALLERGY STATUS TO [facility] DRUG/MEDS/BIOL SUB 02/07/2018 KIM CRUZ MD Ot Z90.89 ACQUIRED ABSENCE OF OTHER ORGANS 02/07/2018 KIM CRUZ MD Ot Z93.0 TRACHEOSTOMY STATUS 02/07/2018 KIM CRUZ MD Ot Z95.5 PRESENCE OF CORONARY ANGIOPLASTY IMPLANT 02/07/2018 KIM CRUZ MD Ot Z98.52 VASECTOMY STATUS 02/12/2018 KIM CRUZ MD Ot D75.1 SECONDARY POLYCYTHEMIA 02/12/2018 KIM CRUZ MD Ot E11.9 TYPE 2 DIABETES MELLITUS WITHOUT COMPLIC 02/12/2018 KIM CRUZ MD Ot E78.00 PURE HYPERCHOLESTEROLEMIA, UNSPECIFIED 02/12/2018 KIM CRUZ MD Ot I10 ESSENTIAL (PRIMARY) HYPERTENSION 02/12/2018 KIM CRUZ MD Ot I25.10 ATHSCL HEART DISEASE OF [place] CORONARY 02/12/2018 KIM CRUZ MD Ot T78.3XXA ANGIONEUROTIC EDEMA, INITIAL ENCOUNTER 02/12/2018 KIM CRUZ MD Ot T78.40XA ALLERGY, UNSPECIFIED, INITIAL ENCOUNTER 02/12/2018 KIM CRUZ MD Ot Z79.52 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1 SECONDARY POLYCYTHEMIA 02/14/2018 KIM CRUZ MD Ot E11.9 TYPE 2 DIABETES MELLITUS WITHOUT COMPLIC 02/14/2018 KIM CRUZ MD Ot E78.00 PURE HYPERCHOLESTEROLEMIA, UNSPECIFIED 02/14/2018 KIM CRUZ MD Ot I10 ESSENTIAL (PRIMARY) HYPERTENSION 02/14/2018 KIM CRUZ MD Ot I25.10 ATHSCL HEART DISEASE OF [place] CORONARY 02/14/2018 KIM CRUZ MD Ot T78.3XXA ANGIONEUROTIC EDEMA, INITIAL ENCOUNTER 02/14/2018 KIM CRUZ MD Ot T78.40XA ALLERGY, UNSPECIFIED, INITIAL ENCOUNTER 02/14/2018 KIM CRUZ MD Ot Z79.52 CARE HOME (CURRENT) USE OF SYSTEMIC STER 02/14/2018 KIM CRUZ MD Ot Z79.82 CARE HOME (CURRENT) USE OF ASPIRIN 02/14/2018 KIM CRUZ MD Ot Z79.84 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 OF ORAL HYPOGLYC 02/14/2018 KIM [...] KIM CRUZ MD Ot Z98.52 VASECTOMY STATUS 02/16/2018 KING SOTOMAYOR MD Ot 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 02/16/2018 KING SOTOMAYOR MD Ot E78.00 PURE HYPERCHOLESTEROLEMIA, UNSPECIFIED 02/16/2018 KING SOTOMAYOR MD Ot I10 ESSENTIAL (PRIMARY) HYPERTENSION 02/16/2018 KING SOTOMAYOR MD, Ot I25.10 ATHSCL HEART DISEASE OF [place] CORONARY 02/16/2018 KING SOTOMAYOR MD Ot K13.0 DISEASES OF LIPS 02/16/2018 KING SOTOMAYOR MD Ot T78.3XXA ANGIONEUROTIC EDEMA, INITIAL ENCOUNTER 02/16/2018 KING SOTOMAYOR MD Ot Z79.52 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 OF SYSTEMIC STER 02/16/2018 KING SOTOMAYOR MD Ot Z79.82 CARE HOME (CURRENT) USE OF ASPIRIN 02/16/2018 KING SOTOMAYOR MD, Ot Z79.84 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 OF ORAL HYPOGLYC 02/16/2018 KING SOTOMAYOR MD Ot Z88.8 ALLERGY STATUS TO [facility] DRUG/MEDS/BIOL SUB 02/16/2018 KING SOTOMAYOR MD Ot Z90.89 ACQUIRED ABSENCE OF OTHER ORGANS 02/16/2018 KING SOTOMAYOR MD Ot Z93.0 TRACHEOSTOMY STATUS 02/16/2018 KING SOTOMAYOR MD Ot Z95.5 PRESENCE OF CORONARY ANGIOPLASTY IMPLANT 02/16/2018 KING SOTOMAYOR MD Ot Z98.52 VASECTOMY STATUS 02/17/2018 KING SOTOMAYOR MD, Ot 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 02/17/2018 KING SOTOMAYOR MD Ot E78.00 PURE HYPERCHOLESTEROLEMIA, UNSPECIFIED 02/17/2018 KING SOTOMAYOR MD Ot I10 ESSENTIAL (PRIMARY) HYPERTENSION 02/17/2018 KING SOTOMAYOR MD Ot I25.10 ATHSCL HEART DISEASE OF [place] CORONARY 02/17/2018 KING SOTOMAYOR MD, Ot K13.0 DISEASES OF LIPS 02/17/2018 KING SOTOMAYOR MD, Ot T78.3XXA ANGIONEUROTIC EDEMA, INITIAL ENCOUNTER 02/17/2018 KING SOTOMAYOR MD, Ot Z79.52 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 OF SYSTEMIC STER 02/17/2018 KING SOTOMAYOR MD, Ot Z79.82 CARE HOME (CURRENT) USE OF ASPIRIN 02/17/2018 KING SOTOMAYOR MD, Ot Z79.84 CARE HOME (CURRENT) USE OF ORAL HYPOGLYC 02/17/2018 KING SOTOMAYOR MD, Ot Z88.8 ALLERGY STATUS TO [facility] DRUG/MEDS/BIOL SUB 02/17/2018 KING SOTOMAYOR MD, Ot Z90.89 ACQUIRED ABSENCE OF OTHER ORGANS 02/17/2018 KING SOTOMAYOR MD, Ot Z93.0 TRACHEOSTOMY STATUS 02/17/2018 KING SOTOMAYOR MD, Ot Z95.5 PRESENCE OF CORONARY ANGIOPLASTY IMPLANT 02/17/2018 KING SOTOMAYOR MD, Ot Z98.52 VASECTOMY STATUS 03/04/2018 SARAH CHUNG MD Ot 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 03/04/2018 SARAH CHUNG MD Ot E78.00 PURE HYPERCHOLESTEROLEMIA, UNSPECIFIED 03/04/2018 SARAH CHUNG MD Ot I10 ESSENTIAL (PRIMARY) HYPERTENSION 03/04/2018 SARAH CHUNG MD, Ot I25.10 ATHSCL HEART DISEASE OF [place] CORONARY 03/04/2018 SARAH CHUGN MD Ot L50.9 URTICARIA, UNSPECIFIED 03/04/2018 SARAH CHUNG MD, Ot T78.3XXA ANGIONEUROTIC EDEMA, INITIAL ENCOUNTER 03/04/2018 SARAH CHUNG MD, Ot Z79.52 CARE HOME (CURRENT) USE OF SYSTEMIC STER 03/04/2018 SARAH CHUNG MD Ot Z79.82 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 OF ASPIRIN 03/04/2018 SARAH CHUNG MD Ot Z79.84 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 OF ORAL HYPOGLYC 03/04/2018 SHELDON YARBROUGH, SARAH Nicholson Ot Z88.8 ALLERGY STATUS TO [facility] DRUG/MEDS/BIOL SUB 03/04/2018 SARAH CHUNG MD Ot Z90.79 ACQUIRED ABSENCE OF OTHER GENITAL ORGAN( 03/04/2018 SARAH CHUNG MD Ot Z90.89 ACQUIRED ABSENCE OF OTHER ORGANS 03/04/2018 SARAH CHUNG MD Ot Z93.0 TRACHEOSTOMY STATUS 03/04/2018 SARAH CHUNG MD Ot Z95.5 PRESENCE OF CORONARY ANGIOPLASTY IMPLANT 03/04/2018 SARAH CHUNG MD Ot Z98.52 VASECTOMY STATUS 03/07/2018 PATRICIA HERNANDEZ APRN Ot E11.9 TYPE 2 DIABETES MELLITUS WITHOUT COMPLIC 03/07/2018 PATRICIA HERNANDEZ APRN Ot E78.00 PURE HYPERCHOLESTEROLEMIA, UNSPECIFIED 03/07/2018 PATRICIA HERNANDEZ APRN Ot I10 ESSENTIAL (PRIMARY) HYPERTENSION 03/07/2018 PATRICIA HERNANDEZ APRN Ot I25.10 ATHSCL HEART DISEASE OF [place] CORONARY 03/07/2018 PATRICIA HERNANDEZ APRN Ot T78.3XXA ANGIONEUROTIC EDEMA, INITIAL ENCOUNTER 03/07/2018 PATRICIA HERNANDEZ APRN Ot T78.40XA ALLERGY, UNSPECIFIED, INITIAL ENCOUNTER 03/07/2018 PATRICIA HERNANDEZ APRN Ot Z79.52 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 OF SYSTEMIC STER 03/07/2018 PATRICIA HERNANDEZ APRN Ot Z79.82 CARE HOME (CURRENT) USE OF ASPIRIN 03/07/2018 PATRICIA HERNANDEZ APRN Ot Z79.84 CARE HOME (CURRENT) USE OF ORAL HYPOGLYC 03/07/2018 PATRICIA HERNANDEZ APRN Ot Z87.820 PERSONAL HISTORY OF TRAUMATIC BRAIN INJU 03/07/2018 PATRICIA HERNANDEZ APRN Ot Z88.8 ALLERGY STATUS TO [facility] DRUG/MEDS/BIOL SUB 03/07/2018 PATRICIA HERNANDEZ APRN Ot Z90.79 ACQUIRED ABSENCE OF OTHER GENITAL ORGAN( 03/07/2018 PATRICIA HERNANDEZ APRN Ot Z90.89 ACQUIRED ABSENCE OF OTHER ORGANS 03/07/2018 PATRICIA HERNANDEZ APRN Ot Z93.0 TRACHEOSTOMY STATUS 03/07/2018 PATRICIA HERNANDEZ APRN Ot Z95.5 PRESENCE OF CORONARY ANGIOPLASTY IMPLANT 03/07/2018 PATRICIA HERNANDEZ APRN Ot Z98.52 VASECTOMY STATUS 03/09/2018 SARAH CHUNG MD, Ot 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 03/09/2018 SARAH CHUNG MD, Ot E78.00 PURE HYPERCHOLESTEROLEMIA, UNSPECIFIED 03/09/2018 SARAH CHUNG MD, Ot I10 ESSENTIAL (PRIMARY) HYPERTENSION 03/09/2018 SARAH CHUNG MD, Ot I25.10 ATHSCL HEART DISEASE OF [place] CORONARY 03/09/2018 SARAH CHUNG MD, Ot L50.9 URTICARIA, UNSPECIFIED 03/09/2018 SARAH CHUNG MD, Ot T78.3XXA ANGIONEUROTIC EDEMA, INITIAL ENCOUNTER 03/09/2018 SARAH CHUNG MD, Ot Z79.52 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 OF SYSTEMIC STER 03/09/2018 SARAH CHUNG MD, Ot Z79.82 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 OF ASPIRIN 03/09/2018 SARAH CHUNG MD, Ot Z79.84 CARE HOME (CURRENT) USE OF ORAL HYPOGLYC 03/09/2018 SARAH CHUNG MD, Ot Z88.8 ALLERGY STATUS TO [facility] DRUG/MEDS/BIOL SUB 03/09/2018 SARAH CHUNG MD, Ot Z90.79 ACQUIRED ABSENCE OF OTHER GENITAL ORGAN( 03/09/2018 SARAH CHUNG MD, Ot Z90.89 ACQUIRED ABSENCE OF OTHER ORGANS 03/09/2018 SARAH CHUNG MD, Ot Z93.0 TRACHEOSTOMY STATUS 03/09/2018 SARAH CHUNG MD, Ot Z95.5 PRESENCE OF CORONARY ANGIOPLASTY IMPLANT 03/09/2018 SARAH CHUGN MD, Ot Z98.52 VASECTOMY STATUS Procedures There [...] g/dL 3.2-4.5 CALCIUM CORRECTED 9.0 mg/dL 8.5-10.1 Complete blood count (CBC) with automated white blood cell (WBC) differential - 03/05/18 12:26 Blood leukocytes automated count (number/volume) 11.0 10*3/uL [...] g/dL 32-36 Automated erythrocyte distribution width ratio 13.3 % 10.0-14.5 Automated blood platelet count (count/volume) 244 10*3/uL 130-400 Automated blood platelet mean volume measurement 11.0 [foz_us] 7.4-10.4 Automated blood neutrophils/100 leukocytes 78 % 42-75 Automated blood lymphocytes/100 leukocytes 15 % 12-44 Blood monocytes/100 leukocytes 5 % 0-12 Automated blood eosinophils/100 leukocytes 2 % 0-10 Automated blood basophils/100 leukocytes 0 % 0-10 Blood neutrophils automated count (number/volume) 8.6 10*3 1.8-7.8 Blood lymphocytes automated count (number/volume) 1.7 10*3 1.0-4.0 Blood monocytes automated count (number/volume) 0.5 10*3 0.0-1.0 Automated eosinophil count 0.2 10*3/uL 0.0-0.3 Automated blood basophil count (count/volume) 0.0 10*3/uL 0.0-0.1 Comprehensive metabolic panel - 03/05/18 12:35 Serum or plasma sodium measurement (moles/volume) 137 mmol/L 135-145 Serum or plasma potassium measurement (moles/volume) 4.5 mmol/L 3.6-5.0 Serum or plasma chloride measurement (moles/volume) 103 mmol/L 98-107 Carbon dioxide 23 mmol/L 21-32 Serum or plasma anion gap determination (moles/volume) 11 mmol/L 5-14 Serum or plasma urea nitrogen measurement (mass/volume) 18 mg/dL 7-18 Serum or plasma creatinine measurement (mass/volume) 1.15 mg/dL 0.60-1.30 Serum or plasma urea nitrogen/creatinine mass ratio 16 NRG Serum or plasma creatinine measurement with calculation of estimated glomerular filtration rate > NRG Serum or plasma glucose measurement (mass/volume) 162 mg/dL 70-105 Serum or plasma calcium measurement (mass/volume) 9.8 mg/dL 8.5-10.1 Serum or plasma total bilirubin measurement (mass/volume) 1.5 mg/dL 0.1-1.0 Serum or plasma alkaline phosphatase measurement (enzymatic activity/volume) 60 U/L 40-136 Serum or plasma aspartate aminotransferase measurement (enzymatic activity/ volume) 54 U/L 5-34 Serum or plasma alanine aminotransferase measurement (enzymatic activity/volume ) 102 U/L 0-55 Serum or plasma protein measurement (mass/volume) 6.8 g/dL 6.4-8.2 Serum or plasma albumin measurement (mass/volume) 4.4 g/dL 3.2-4.5 CALCIUM CORRECTED 9.5 mg/dL 8.5-10.1 Complete urinalysis with reflex to culture - 03/05/18 12:45 Urine color determination YELLOW NRG Urine clarity determination CLEAR NRG Urine pH measurement by test strip 6.5 5-9 Specific gravity of urine by test strip 1.010 1.016- 1.022 Urine protein assay by test strip, semi-quantitative NEGATIVE NEGATIVE Urine glucose detection by automated test strip NEGATIVE NEGATIVE Erythrocytes detection in urine sediment by light microscopy NEGATIVE NEGATIVE Urine ketones detection by automated test strip NEGATIVE NEGATIVE Urine nitrite detection by test strip NEGATIVE NEGATIVE Urine total bilirubin detection by test strip NEGATIVE NEGATIVE Urine urobilinogen measurement by automated test strip (mass/volume) NORMAL NORMAL Urine leukocyte esterase detection by dipstick NEGATIVE NEGATIVE Automated urine sediment erythrocyte count by microscopy (number/high power field) NONE NRG Automated urine sediment leukocyte count by microscopy (number/high power field ) NONE NRG Bacteria detection in urine sediment by light microscopy NEGATIVE NRG Squamous epithelial cells detection in urine sediment by light microscopy RARE NRG Crystals detection in urine sediment by light microscopy NONE NRG Casts detection in urine sediment by light microscopy NONE NRG Mucus detection in urine sediment by light microscopy NEGATIVE NRG Complete urinalysis with reflex to culture NO NRG Encounters ACCT No. Visit Date/Time Discharge Status Pt. Type Provider Facility Loc./Unit Complaint [id number] 03/05/2018 10:39:00 03/05/2018 13:58:00 DIS Outpatient PATRICIA HERNANDEZ APRN [facility] ER ALLERGIC REACTION;TONGUE SWELLING;HIVES [id number] 03/02/2018 20:40:00 03/02/2018 23:23:00 DIS Outpatient SHELDON YARBROUGH, SARAH Nicholson [facility] ER ALLERGIC REACTION, HIVES [id number] 02/15/2018 21:51:00 02/16/2018 02:53:00 DIS Emergency СВЕТЛАНА YARBROUGH, KING Garcia [facility] ER THROAT TIGHT, TOUNGE/ LIP NUMB, ALLERGIC REACTION [id number] 02/12/2018 03:51:00 02/12/2018 09:58:00 DIS Emergency KIM CRUZ MD [facility] ER ALLERGIC REACTION [id number] 02/05/2018 08:36:00 02/05/2018 11:33:00 DIS Emergency KIM CRUZ MD [facility] ER HIVES;TONGUE SWELLING [id number] 01/31/2018 13:32:00 01/31/2018 16:26:00 DIS Emergency FOX STRICKLAND DO [facility] ER ALLERGIC REACTION, FACE, LIP SWELLING [id number] 12/10/2016 06:50:00 12/10/2016 23:59:59 CLS Outpatient KIARRA LOGAN DOLINE S [facility] RAD ELEVATED LFT'S [id number] 01/03/2015 18:00:00 02/23/2015 00:01:00 DIS Outpatient JUNIOR LOGAN DOQUELINE S [facility] DSME DM TYPE 2 [id number] 09/13/2014 09:48:00 12/12/2014 00:01:00 DIS Outpatient JUNIOR LOGAN DOQUELINE S [facility] DSME DM TYPE 2 [id number] 06/07/2014 16:55:00 06/08/2014 10:40:00 DIS Inpatient ORENDER TIM AVITIA [facility] 4TH ANGIOEDEMA OF TONGUE; SUSPECT 2 DEGREE TO JR INHIB [id number] 02/17/2014 18:16:00 02/17/2014 20:21:00 DIS Emergency SHELDON YARBROUGH, SARAH Nicholson [facility] ER ALLERGIC REACTION/ TONGUE SWELLING [id number] 01/04/2015 09:37:35 ACT Document Registration 08/02/16 03/03/2018 13:51:20 03/03/2018 23:59:59 CLS Outpatient Tim Logan
[2018-03-11] MEDS ORDERED: DEXAMETHASONE 10 MG/ML (DECADRON) 1 ML VIAL IV ONE (18:45)
--- NOTE | 2018-03-11 18:52 | ED General ---
General Chief Complaint: Allergic Reaction Stated Complaint: ALLERGIC REACTION Nursing Triage Note: PT PRESENTS TO ER WITH COMPLAINT OF ALLERGIC REACTION. PT HAS HAD MULTIPLE EPISODES WITHIN THE LAST 6 WEEKS. UNKNOWN CAUSE OF REACTION. PT HAS A REDDENED AREA ON RIGHT ARM PIT. ALSO STATES IT FEELS THAT HIS TONGUE AND LIPS ARE STARTING TO SWELL. Nursing Sepsis Screen: No Definite Risk Source of Information: Patient Exam Limitations: No Limitations History of Present Illness Date Seen by Provider: Mar 11, 2018 Time Seen by Provider: 18:20 Initial Comments Here with report of allergic reaction exam. Patient has history of angioedema that seems to be idiopathic. He has seen rheumatology and only found to have mild reaction to honey but otherwise no other significant findings. No change in course of medications. Patient was instructed to continue Benadryl and/or Pepcid for reactions. Did develop hives today under the armpits and feels like the lower left lip on the lateral aspect might be swelling a little bit of the tip of the time is tingling or itching. He has had much more severe reactions in the past. He has taken 100 mg of Benadryl today in 2 different doses as well as 20 mg of Pepcid per the . He is had multiple episodes of the same over the last 2 months. Timing/Duration: 1-3 Hours Severity: Mild Associated Systoms: No Chest Pain, No Cough, No Nausea/Vomiting; Rash; No Shortness of Air Allergies and Home Medications Allergies Coded Allergies: JR Inhibitors (Unverified Allergy, Unknown, 06/08/14) ANGIOEDEMA OF TONGUE Home Medications Aspirin 81 Mg Tabec, 81 MG PO DAILY, (Reported) Carvedilol 12.5 Mg Tablet, 12.5 MG GT BID Prescribed by: TIM LOZOYA on 06/08/14 0831 Epinephrine 0.3 Mg/0.3 Ml Pen.injctr, 0.3 MG IM PRN PRN for anaphylaxis or angioedema Prescribed by: SARAH GARCIA on 02/17/14 2021 Epinephrine 0.3 Mg/0.3 Ml Auto.injct, 0.3 MG IJ Q15M PRN for anaphylaxis Prescribed by: KIM CRUZ on 02/05/18 1101 Epinephrine 0.3 Mg/0.3 Ml Auto.injct, 0.3 MG IJ Q20M PRN for angioedema Prescribed by: KIM CRUZ on 02/12/18 0909 Fish Oil/Dha/Epa 1 Each Capsule, 1 EACH PO DAILY, (Reported) Metformin Hcl 500 Mg Tab.sr.24h, 1 EACH PO BID WITH MEALS, (Reported) Multivitamins 1 Tab Tablet, 1 TAB PO DAILY, (Reported) Omeprazole 20 Mg Capsule.dr, 20 MG PO DAILY, (Reported) Potassium Chloride 10 Meq Tablet.sa, 1 EACH PO DAILY WITH FOOD, (Reported) Prednisone 20 Mg Tab, 20 MG PO DAILY@0700 Prescribed by: TIM LOZOYA on 06/08/14 0829 Prednisone 20 Mg Tab, 60 MG PO DAILY Prescribed by: FOX STRICKLAND on 01/31/18 1613 Prednisone 20 Mg Tab, 20 MG PO DAILY Prescribed by: KIM CRUZ on 02/05/18 1101 Sitagliptin Phosphate 100 Mg Tablet, 1 EACH PO DAILY, (Reported) Vit A/Vit C/Vit E/Zinc/Copper 1 Each Tablet, 1 EACH PO DAILY, (Reported) [Fiber Therapy] , 2 TAB PO DAILY, (Reported) Patient Home Medication List Home Medication List Reviewed: Yes Review of Systems Review of Systems Constitutional: see HPI; No chills, No fever EENTM: other (Lip and tongue as described in history of present illness); No nose congestion, No throat pain, No throat swelling Respiratory: No cough, No short of breath Cardiovascular: no symptoms reported Gastrointestinal: No abdominal pain, No nausea, No vomiting Genitourinary: no symptoms reported Skin: see HPI, pruritus, rash (Hives) Psychiatric/Neurological: No Symptoms Reported All Other Systems Reviewed Negative Unless Noted: Yes Past Gowkpmn-Hqdtup-Zjxcsx Hx Past Med/Social Hx: Reviewed Nursing Past Med/Soc Hx Patient Social History Alcohol Use: Denies Use Recreational Drug Use: No Smoking Status: Never a Smoker 2nd Hand Smoke Exposure: No Recent Foreign Travel: No Contact w/Someone Who Travel: No Recent Infectious Disease Expo: No Recent Hopitalizations: Yes Immunizations Up To Date Date of Pneumonia Vaccine: Jun 07, 2009 Date of Influenza Vaccine: Apr 07, 2014 Seasonal Allergies Seasonal Allergies: Yes Past Medical History Surgeries: Yes Appendectomy, Cardiac, Coronary Stent, Neurological, Orthopedic, Tracheostomy, Transurethral Resection, Vasectomy Respiratory: No Cardiac: Yes (STENT PLACEMENT) Coronary Artery Disease, High Cholesterol, Hypertension Neurological: Yes (INTRACRANIAL BLEED) Neuropathy Reproductive Disorders: No Genitourinary: Yes Prostate Problems Gastrointestinal: No Musculoskeletal: Yes (RIGHT FOOT DROP, LUMBAR RADICULOPATHY/NERVE DAMAGE) Foot Drop, Chronic Back Pain Endocrine: Yes Diabetes, Non-Insulin dep HEENT: No Cancer: No Psychosocial: No Integumentary: Yes (Recurrent angioedema) Blood Disorders: Yes (POLYCYTHEMIA) Adverse Reaction/Blood Tranf: No Family Medical History Reviewed Nursing Family Hx Physical Exam Vital Signs Vital Signs - First Documented 03/11/18 18:14 Temp 98.0 Pulse 75 Resp 17 B/P (MAP) 147/105 (119) Pulse Ox 32 O2 Delivery Room Air Capillary Refill : Less Than 3 Seconds Height, Weight, BMI Height: 5'11.00" Weight: 240lbs. 0.6oz. 108.837344sq; 34.56 BMI Method:Stated General Appearance: No Apparent Distress, WD/WN HEENT: PERRL/EOMI, TMs Normal, Pharynx Normal, Other (No obvious swelling noted and patient feels that the left lower lip lateral aspect is slightly swollen) Neck: Non Tender, Supple Respiratory: Lungs Clear, Normal Breath Sounds Cardiovascular: Regular Rate, Rhythm, No Murmur Gastrointestinal: Non Tender, Soft Back: Normal Inspection, No CVA Tenderness, No Vertebral Tenderness Extremity: Normal Range of Motion, Non Tender Neurologic/Psychiatric: Alert, Oriented x3 Skin: Warm/Dry, Other (Few scattered hives noted especially axilla on the right ) Progress/Results/Core Measures Suspected Sepsis Recent Fever Within 48 Hours: No Infection Criteria Present: None New/Unexplained Altered Menta: No Sepsis Screen: No Definite Risk SIRS Temperature:98.0 Pulse: 75 Respiratory Rate: 17 Blood Pressure 147 /105 Mean: 119 Results/Orders My Orders Orders - KING SOTOMAYOR MD Dexamethasone Injection (Decadron Inject (03/11/18 18:45) Medications Given in ED Current Medications Medications Dose Ordered Sig/Luis F Route Start Time Stop Time Status Last Admin Dose Admin Dexamethasone Sodium Phosphate 10 mg ONCE ONCE IV 03/11/18 18:45 03/11/18 18:46 DC 03/11/18 18:56 10 MG Vital Signs/I&O 03/11/18 18:14 Temp 98.0 Pulse 75 Resp 17 B/P (MAP) 147/105 (119) Pulse Ox 32 O2 Delivery Room Air Capillary Refill : Less Than 3 Seconds Blood Pressure Mean: 119 Progress Note : Progress Note Seen and evaluated. IV established. Decadron 10 mg IV. Patient already has had xxhd-kxi-dhaedzd diphenhydramine and famotidine. Monitor patient. 1954: Overall completely resolved and feels much better. He did have 50 mg of Benadryl by mouth earlier from his home meds. Discharge home with return precautions. Patient family verbalized understanding instructions and agreement with plan. Departure Impression Primary Impression: Idiopathic angioedema Qualified Codes: T78.3XXA - Angioneurotic edema, initial encounter Disposition: HOME, SELF-CARE Condition: Improved Departure-Patient Inst. Decision time for Depature: 20:00 Referrals: TIM LOZOYA DO (PCP/Family) Primary Care Physician Patient Instructions: Angioedema (DC) Add. Discharge Instructions: All discharge instructions reviewed with patient and/or family. Voiced understanding. Continue home meds as previously prescribed. Follow-up with your doctor this week for recheck and further evaluation. You may take the Benadryl and famotidine/Pepcid as needed for swelling or itching in the mouth or throat. Return for lip or tongue swelling, throat swelling, difficulty with swallowing, breathing problems, abdominal pain or vomiting or other concerns as needed. Copy Copies To 1: TIM LOZOYA TIMOTHY D MD Mar 11, 2018 18:52
[2018-03-11 20:08] VITALS: BP 158/99
== END 2018-03-11 20:08 | disposition home or self-care (01) ==
LOC: EDUNIT# 17:54 → ER 17:55
DX: T78.3XXA Angioneurotic edema, initial encounter (principal); I25.10 Atherosclerotic heart disease of native coronary artery without angina pectoris; E78.00 Pure hypercholesterolemia, unspecified; I10 Essential (primary) hypertension; E11.42 Type 2 diabetes mellitus with diabetic polyneuropathy; Z88.8 Allergy status to other drugs, medicaments and biological substances; Z79.82 Long term (current) use of aspirin; Z79.84 Long term (current) use of oral hypoglycemic drugs; Z79.52 Long term (current) use of systemic steroids; Z95.5 Presence of coronary angioplasty implant and graft; Z90.89 Acquired absence of other organs; Z93.0 Tracheostomy status; Z98.52 Vasectomy status; Z90.79 Acquired absence of other genital organ(s)
CPT/HCPCS: 96374

== ENCOUNTER → 2018-03-14 | Emergency (ER) | payer MEDICARE, OTHER ==
[~2018-03-14] VITALS: Ht 185.4 cm; Wt 120.2 kg
[~2018-03-14] MED LIST changes: +methylPREDNISolone 125 MG (Solu-MEDROL) VIAL IVP ONE
--- OUTSIDE RECORDS SUMMARY | 2018-03-14 13:12 | XMS REPORT | Continuity of Care Document ---
Author Author [facility] Organization [facility] Address Unknown Phone Unavailable Allergies Active Description Code Type Severity Reaction Onset Reported/Identified Relationship to Patient Clinical Status Yes No Known Drug Allergies [id number] Drug Allergy Unknown N/A 09/28/2008 Yes JR Inhibitors [id number] Drug Allergy Unknown N/A 06/08/2014 Medications There [...] DO Ot I25.10 ATHSCL HEART DISEASE OF [place] CORONARY 01/31/2018 FOX STRICKLAND DO Ot L50.9 URTICARIA, UNSPECIFIED 01/31/2018 FOX STRICKLAND DO Ot T78.3XXA ANGIONEUROTIC EDEMA, INITIAL ENCOUNTER 01/31/2018 FOX STRICKLAND DO Ot T78.40XA ALLERGY, UNSPECIFIED, INITIAL ENCOUNTER 01/31/2018 FOX STRICKLAND DO Ot Z79.52 COMPUTER ANIMATOR (CURRENT) USE OF SYSTEMIC STER 01/31/2018 FOX STRICKLAND DO Ot Z79.82 MCFP (CURRENT) USE OF ASPIRIN 01/31/2018 FOX STRICKLAND DO Ot Z79.84 COMPUTER ANIMATOR (CURRENT) USE OF ORAL HYPOGLYC 01/31/2018 FOX [...] MD Ot I25.10 ATHSCL HEART DISEASE OF [place] CORONARY 02/05/2018 KIM CRUZ MD Ot K14.8 OTHER DISEASES OF TONGUE 02/05/2018 KIM CRUZ MD Ot T78.3XXA ANGIONEUROTIC EDEMA, INITIAL ENCOUNTER 02/05/2018 KIM CRUZ MD Ot Z79.52 MCFP (CURRENT) USE OF SYSTEMIC STER 02/05/2018 KIM CRUZ MD Ot Z79.82 COMPUTER ANIMATOR (CURRENT) USE OF ASPIRIN 02/05/2018 KIM CRUZ MD Ot Z79.84 MCFP (CURRENT) USE OF ORAL HYPOGLYC 02/05/2018 KIM [...] MD Ot I25.10 ATHSCL HEART DISEASE OF [place] CORONARY 02/07/2018 KIM CRUZ MD Ot K14.8 OTHER DISEASES OF TONGUE 02/07/2018 KIM CRUZ MD Ot T78.3XXA ANGIONEUROTIC EDEMA, INITIAL ENCOUNTER 02/07/2018 KIM CRUZ MD Ot Z79.52 COMPUTER ANIMATOR (CURRENT) USE OF SYSTEMIC STER 02/07/2018 KIM CRUZ MD Ot Z79.82 COMPUTER ANIMATOR (CURRENT) USE OF ASPIRIN 02/07/2018 KIM CRUZ MD Ot Z79.84 COMPUTER ANIMATOR (CURRENT) USE OF ORAL HYPOGLYC 02/07/2018 KIM CRUZ MD Ot Z88.8 ALLERGY STATUS TO [facility] DRUG/MEDS/BIOL SUB 02/07/2018 KIM CRUZ MD Ot [...] MD Ot I25.10 ATHSCL HEART DISEASE OF [place] CORONARY 02/12/2018 KIM CRUZ MD Ot T78.3XXA ANGIONEUROTIC EDEMA, INITIAL ENCOUNTER 02/12/2018 KIM CRUZ MD Ot T78.40XA ALLERGY, UNSPECIFIED, INITIAL ENCOUNTER 02/12/2018 KIM CRUZ MD Ot Z79.52 COMPUTER ANIMATOR (CURRENT) USE OF SYSTEMIC STER 02/12/2018 KIM CRUZ MD Ot Z79.82 [facility]FP (CURRENT) USE OF ASPIRIN 02/12/2018 KIM CRUZ MD Ot Z79.84 COMPUTER ANIMATOR (CURRENT) USE OF ORAL HYPOGLYC 02/12/2018 KIM [...] MD Ot I25.10 ATHSCL HEART DISEASE OF [place] CORONARY 02/14/2018 KIM CRUZ MD Ot T78.3XXA ANGIONEUROTIC EDEMA, INITIAL ENCOUNTER 02/14/2018 KIM CRUZ MD Ot T78.40XA ALLERGY, UNSPECIFIED, INITIAL ENCOUNTER 02/14/2018 KIM CRUZ MD Ot Z79.52 [facility] (CURRENT) USE OF SYSTEMIC STER 02/14/2018 KIM CRUZ MD Ot Z79.82 [facility] (CURRENT) USE OF ASPIRIN 02/14/2018 KIM CRUZ MD Ot Z79.84 COMPUTER ANIMATOR (CURRENT) USE OF ORAL HYPOGLYC 02/14/2018 KIM [...] MD, Ot I25.10 ATHSCL HEART DISEASE OF [place] CORONARY 02/16/2018 KING SOTOMAYOR MD Ot K13.0 DISEASES OF LIPS 02/16/2018 KING SOTOMAYOR MD Ot T78.3XXA ANGIONEUROTIC EDEMA, INITIAL ENCOUNTER 02/16/2018 KING SOTOMAYOR MD Ot Z79.52 COMPUTER ANIMATOR (CURRENT) USE OF SYSTEMIC STER 02/16/2018 KING SOTOMAYOR MD Ot Z79.82 MCFP (CURRENT) USE OF ASPIRIN 02/16/2018 KING SOTOMAYOR MD, Ot Z79.84 COMPUTER ANIMATOR (CURRENT) USE OF ORAL HYPOGLYC 02/16/2018 KING [...] MD Ot I25.10 ATHSCL HEART DISEASE OF [place] CORONARY 02/17/2018 KING SOTOMAYOR MD, Ot K13.0 DISEASES OF LIPS 02/17/2018 KING SOTOMAYOR MD, Ot T78.3XXA ANGIONEUROTIC EDEMA, INITIAL ENCOUNTER 02/17/2018 KING SOTOMAYOR MD, Ot Z79.52 COMPUTER ANIMATOR (CURRENT) USE OF SYSTEMIC STER 02/17/2018 KING SOTOMAYOR MD, Ot Z79.82 MCFP (CURRENT) USE OF ASPIRIN 02/17/2018 KING SOTOMAYOR MD, Ot Z79.84 MCFP (CURRENT) USE OF ORAL HYPOGLYC 02/17/2018 KING SOTOMAYOR MD, Ot Z88.8 ALLERGY STATUS TO [facility] DRUG/MEDS/BIOL SUB 02/17/2018 KING SOTOMAYOR MD, Ot [...] MD, Ot I25.10 ATHSCL HEART DISEASE OF [place] CORONARY 03/04/2018 SARAH CHUNG MD Ot L50.9 URTICARIA, UNSPECIFIED 03/04/2018 SARAH CHUNG MD, Ot T78.3XXA ANGIONEUROTIC EDEMA, INITIAL ENCOUNTER 03/04/2018 SARAH CHUNG MD, Ot Z79.52 MCFP (CURRENT) USE OF SYSTEMIC STER 03/04/2018 SARAH CHUNG MD Ot Z79.82 COMPUTER ANIMATOR (CURRENT) USE OF ASPIRIN 03/04/2018 SARAH CHUNG MD Ot Z79.84 COMPUTER ANIMATOR (CURRENT) USE OF ORAL HYPOGLYC 03/04/2018 SHELDON [...] APRN Ot I25.10 ATHSCL HEART DISEASE OF [place] CORONARY 03/07/2018 PATRICIA HERNANDEZ APRN Ot T78.3XXA ANGIONEUROTIC EDEMA, INITIAL ENCOUNTER 03/07/2018 PATRICIA HERNANDEZ APRN Ot T78.40XA ALLERGY, UNSPECIFIED, INITIAL ENCOUNTER 03/07/2018 PATRICIA HERNANDEZ APRN Ot Z79.52 COMPUTER ANIMATOR (CURRENT) USE OF SYSTEMIC STER 03/07/2018 PATRICIA HERNANDEZ APRN Ot Z79.82 [facility]FP (CURRENT) USE OF ASPIRIN 03/07/2018 PATRICIA HERNANDEZ APRN Ot Z79.84 MCFP (CURRENT) USE OF ORAL HYPOGLYC 03/07/2018 PATRICIA [...] MD, Ot I25.10 ATHSCL HEART DISEASE OF [place] CORONARY 03/09/2018 SARAH CHUNG MD, Ot L50.9 URTICARIA, UNSPECIFIED 03/09/2018 SARAH CHUNG MD, Ot T78.3XXA ANGIONEUROTIC EDEMA, INITIAL ENCOUNTER 03/09/2018 SARAH CHUNG MD, Ot Z79.52 COMPUTER ANIMATOR (CURRENT) USE OF SYSTEMIC STER 03/09/2018 SARAH CHUNG MD, Ot Z79.82 COMPUTER ANIMATOR (CURRENT) USE OF ASPIRIN 03/09/2018 SARAH CHUNG MD, Ot Z79.84 MCFP (CURRENT) USE OF ORAL HYPOGLYC 03/09/2018 SARAH CHUNG MD, Ot Z88.8 ALLERGY STATUS TO [facility] DRUG/MEDS/BIOL SUB 03/09/2018 SARAH CHUNG MD, Ot Z90.79 ACQUIRED ABSENCE OF OTHER GENITAL ORGAN( 03/09/2018 SARAH CHUNG MD, Ot Z90.89 ACQUIRED ABSENCE OF OTHER ORGANS 03/09/2018 SARAH CHUNG MD, Ot Z93.0 TRACHEOSTOMY STATUS 03/09/2018 SARAH CHUNG MD, Ot Z95.5 PRESENCE OF CORONARY ANGIOPLASTY IMPLANT 03/09/2018 SARAH CHUNG MD, Ot Z98.52 VASECTOMY STATUS Procedures There [...] Status Pt. Type Provider Facility Loc./Unit Complaint [id number] 03/11/2018 17:55:00 03/11/2018 20:08:00 DIS Emergency KING SOTOMAYOR MD [facility] ER ALLERGIC REACTION [id number] 03/05/2018 10:39:00 03/05/2018 13:58:00 DIS Outpatient PATRICIA HERNANDEZ APRN [facility] ER ALLERGIC REACTION;TONGUE SWELLING;HIVES [id number] 03/02/2018 20:40:00 03/02/2018 23:23:00 DIS Outpatient SHELDON YARBROUGH, SARAH Nicholson [facility] ER ALLERGIC REACTION, HIVES [id number] 02/15/2018 21:51:00 02/16/2018 02:53:00 DIS Emergency KING SOTOMAYOR MD [facility] ER THROAT TIGHT, TOUNGE/ LIP NUMB, ALLERGIC REACTION [id number] 02/12/2018 03:51:00 02/12/2018 09:58:00 DIS Emergency KIM CRUZ MD [facility] ER ALLERGIC REACTION [id number] 02/05/2018 08:36:00 02/05/2018 11:33:00 DIS Emergency KIM CRUZ MD [facility] ER HIVES;TONGUE SWELLING [id number] 01/31/2018 13:32:00 01/31/2018 16:26:00 DIS Emergency FOX STRICKLAND DO [facility] ER ALLERGIC REACTION, FACE, LIP SWELLING [id number] 12/10/2016 06:50:00 12/10/2016 23:59:59 CLS Outpatient TIM LOGAN DO [facility] RAD ELEVATED LFT'S [id number] 01/03/2015 18:00:00 02/23/2015 00:01:00 DIS Outpatient TIM LOGAN DO [facility] DSME DM TYPE 2 [id number] 09/13/2014 09:48:00 12/12/2014 00:01:00 DIS Outpatient TIM LOGAN DO [facility] DSME DM TYPE 2 [id number] 06/07/2014 16:55:00 06/08/2014 10:40:00 DIS Inpatient TIM LOGAN DO [facility] 4TH ANGIOEDEMA OF TONGUE; SUSPECT 2 DEGREE TO JR INHIB [id number] 02/17/2014 18:16:00 02/17/2014 20:21:00 DIS Emergency SHELDON YARBROUGH, SARAH Nicholson [facility] ER ALLERGIC REACTION/ TONGUE SWELLING [id number] 01/04/2015 09:37:35 ACT Document Registration 08/02/16 03/03/2018 13:51:20 03/03/2018 23:59:59 CLS Outpatient Tim Logan
--- NOTE | 2018-03-14 15:21 | ED General ---
General Chief Complaint: Allergic Reaction Stated Complaint: ALLERGIC REACTION Nursing Triage Note: Pt reports swelling to lips, tongue, and tingling to lips. 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 Pt was seen in this ED approx 3 days ago for similar reaction. Pt has had multiple reactions with no known trigger in previous hx. Nursing Sepsis Screen: No Definite Risk Source of Information: Patient, Old Records Exam Limitations: No Limitations History of Present Illness Date Seen by Provider: Mar 14, 2018 Time Seen by Provider: 13:50 Initial Comments This 67-year-old gentleman presents to the emergency room with swelling of the left side of the face, lower lip, and tongue consistent with angioedema. He has become quite familiar with the emergency room due to repeated occurrences of angioedema over the last few months. A trigger has not yet been identified. Patient is also being cared for by Dr. 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 Symptoms started around 13:00. He took Benadryl 50 mg and Pepcid 20 mg at that time. He also taken his antihistamines and Pepcid in the morning. He has some subtle sensation of difficulty breathing which is now improving. Allergies and Home Medications Allergies Coded Allergies: JR Inhibitors (Unverified Allergy, Unknown, 06/08/14) ANGIOEDEMA OF TONGUE Home Medications Aspirin 81 Mg Tabec, 81 MG PO DAILY, (Reported) Carvedilol 12.5 Mg Tablet, 12.5 MG GT BID Prescribed by: TIM LOGAN on 06/08/14 0831 Epinephrine 0.3 Mg/0.3 Ml Pen.injctr, 0.3 MG IM PRN PRN for anaphylaxis or angioedema Prescribed by: SARAH GARCIA on 02/17/14 2021 Epinephrine 0.3 Mg/0.3 Ml Auto.injct, 0.3 MG IJ Q15M PRN for anaphylaxis Prescribed by: KIM CRUZ on 02/05/18 1101 Epinephrine 0.3 Mg/0.3 Ml Auto.injct, 0.3 MG IJ Q20M PRN for angioedema Prescribed by: KIM CRUZ on 02/12/18 0909 Fish Oil/Dha/Epa 1 Each Capsule, 1 EACH PO DAILY, (Reported) Metformin Hcl 500 Mg Tab.sr.24h, 1 EACH PO BID WITH MEALS, (Reported) Multivitamins 1 Tab Tablet, 1 TAB PO DAILY, (Reported) Omeprazole 20 Mg Capsule.dr, 20 MG PO DAILY, (Reported) Potassium Chloride 10 Meq Tablet.sa, 1 EACH PO DAILY WITH FOOD, (Reported) Prednisone 20 Mg Tab, 20 MG PO DAILY@0700 Prescribed by: TIM LOGAN on 06/08/14 0829 Prednisone 20 Mg Tab, 60 MG PO DAILY Prescribed by: FOX STRICKLAND on 01/31/18 1613 Prednisone 20 Mg Tab, 20 MG PO DAILY Prescribed by: KIM CRUZ on 02/05/18 1101 Sitagliptin Phosphate 100 Mg Tablet, 1 EACH PO DAILY, (Reported) Vit A/Vit C/Vit E/Zinc/Copper 1 Each Tablet, 1 EACH PO DAILY, (Reported) [Fiber Therapy] , 2 TAB PO DAILY, (Reported) Patient Home Medication List Home Medication List Reviewed: Yes Review of Systems Review of Systems Constitutional: no symptoms reported EENTM: see HPI Respiratory: see HPI Cardiovascular: no symptoms reported Gastrointestinal: no symptoms reported Genitourinary: no symptoms reported Musculoskeletal: no symptoms reported Skin: no symptoms reported Psychiatric/Neurological: No Symptoms Reported Hematologic/Lymphatic: No Symptoms Reported Immunological/Allergic: see HPI Past Jufqmwx-Dnqclh-Oegbac Hx Patient Social History 2nd Hand Smoke Exposure: No Recent Foreign Travel: No Contact w/Someone Who Travel: No Recent Infectious Disease Expo: No Recent Hopitalizations: Yes Immunizations Up To Date Date of Pneumonia Vaccine: Jun 07, 2009 Date of Influenza Vaccine: Apr 07, 2014 Seasonal Allergies Seasonal Allergies: Yes Past Medical History Surgeries: Yes Appendectomy, Cardiac, Coronary Stent, Neurological, Orthopedic, Tracheostomy, Transurethral Resection, Vasectomy Respiratory: No Cardiac: Yes (STENT PLACEMENT) Coronary Artery Disease, High Cholesterol, Hypertension Neurological: Yes (INTRACRANIAL BLEED) Neuropathy Reproductive Disorders: No Genitourinary: Yes Prostate Problems Gastrointestinal: No Musculoskeletal: Yes (RIGHT FOOT DROP, LUMBAR RADICULOPATHY/NERVE DAMAGE) Foot Drop, Chronic Back Pain Endocrine: Yes Diabetes, Non-Insulin dep HEENT: No Cancer: No Psychosocial: No Integumentary: Yes (Recurrent angioedema) Blood Disorders: Yes (POLYCYTHEMIA) Adverse Reaction/Blood Tranf: No Physical Exam Vital Signs Vital Signs - First Documented 03/14/18 13:27 Temp 98.2 Pulse 69 Resp 18 B/P (MAP) 150/87 (108) Pulse Ox 95 O2 Delivery Room Air Capillary Refill : Less Than 3 Seconds Height, Weight, BMI Height: 6'1.00" Weight: 265lbs. 0.6oz. 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 Norm as Tested Skin: Normal Color, Warm/Dry Progress/Results/Core Measures Suspected Sepsis Recent Fever Within 48 Hours: No Infection Criteria Present: None New/Unexplained Altered Menta: No Sepsis Screen: No Definite Risk SIRS Temperature:98.2 Pulse: 69 Respiratory Rate: 18 Blood Pressure 150 /87 Mean: 108 Results/Orders My Orders Orders - SARAH CHUNG MD Saline Lock/Iv-Start (03/14/18 14:05) Methylprednisolone Sod Succ (Solu-Medrol (03/14/18 14:15) Medications Given in ED Current Medications Medications Dose Ordered Sig/Luis F Route Start Time Stop Time Status Last Admin Dose Admin Methylprednisolone Sodium Succinate 125 mg ONCE ONCE IVP 03/14/18 14:15 03/14/18 14:16 DC 03/14/18 14:21 125 MG Vital Signs/I&O 03/14/18 03/14/18 13:27 15:30 Temp 98.2 98.2 Pulse 69 68 Resp 18 18 B/P (MAP) 150/87 (108) 132/71 (91) Pulse Ox 95 95 O2 Delivery Room Air Room Air Capillary Refill : Less Than 3 Seconds Blood Pressure Mean: 108 Progress Note : Progress Note IV was placed and patient received Solu-Medrol. He was watched for over an hour. There was perhaps some subtle improvement but definitely no worsening in his condition. He felt comfortable returning home without taking epinephrine. He does have an EpiPen at home. We discussed strategies for identifying triggers. I am suspicious medication may be a trigger for him. I suggested discussing systematically eliminating medications under the guidance of Dr. LOGAN if she feels this is appropriate. I suggested he start with vitamin D supplement and omeprazole as a lamination of these 2 medications should have no significant consequence to his overall health in the short-term. Departure Impression Primary Impression: Angioedema Qualified Codes: T78.3XXA - Angioneurotic edema, initial encounter Disposition: HOME, SELF-CARE Condition: Stable Departure-Patient Inst. Decision time for Depature: 15:15 Referrals: TIM LOGAN DO (PCP/Family) Primary Care Physician Patient Instructions: Angioedema Add. Discharge Instructions: Use your EpiPen if necessary few develop significant shortness of breath or throat swelling. Otherwise continue with your other medications as previously prescribed. Follow-up with Dr. Logan as soon as possible. Discuss medication management to assess potential for medication causes of angioedema. I suggest that you stop your vitamin D supplement and omeprazole in the meantime as an initial step in medication investigation. Return to care if symptoms are worsening or not responding to your medications at home. All discharge instructions reviewed with patient and/or family. Voiced understanding. Copy Copies To 1: TIM LOGAN JOSHUA T MD Mar 14, 2018 15:21
[2018-03-14 15:30] VITALS: BP 132/71
== END | disposition home or self-care (01) ==
LOC: EDUNIT# 13:05 → ER 13:06
DX: T78.3XXA Angioneurotic edema, initial encounter (principal); I25.10 Atherosclerotic heart disease of native coronary artery without angina pectoris; E78.00 Pure hypercholesterolemia, unspecified; I10 Essential (primary) hypertension; E11.42 Type 2 diabetes mellitus with diabetic polyneuropathy; Z88.8 Allergy status to other drugs, medicaments and biological substances; Z79.82 Long term (current) use of aspirin; Z79.84 Long term (current) use of oral hypoglycemic drugs; Z79.52 Long term (current) use of systemic steroids; Z90.89 Acquired absence of other organs; Z95.5 Presence of coronary angioplasty implant and graft; Z93.0 Tracheostomy status; Z98.52 Vasectomy status

== ENCOUNTER 2018-03-24 18:42 | Emergency (ER) | payer MEDICARE, OTHER ==
[~2018-03-24] VITALS: Ht 185.4 cm; Wt 120.2 kg
[~2018-03-24 18:42] MED LIST changes: -methylPREDNISolone 125 MG (Solu-MEDROL) VIAL IVP ONE
[2018-03-24] MEDS ORDERED: methylPREDNISolone 125 MG (Solu-MEDROL) VIAL IM ONE (19:30)
[2018-03-24] MEDS ORDERED: LORATADINE (CLARITIN) 10 MG TAB PO ONE (19:30)
--- NOTE | 2018-03-24 20:18 | ED General ---
General Chief Complaint: Allergic Reaction Stated Complaint: ALLERGIC REACTION/FACIAL SWELLING Nursing Triage Note: PT TO ED WITH C/O ALLERGIC RX. STATES HIVES UNDER R ARM AND L FACIAL SWELLING. STATES THIS IS THE 9TH TIME HE HAS BEEN SEEN HERE SINCE FOR THIS SAME ISSUE. Nursing Sepsis Screen: No Definite Risk Source of Information: Patient, Family Exam Limitations: No Limitations History of Present Illness Date Seen by Provider: Mar 24, 2018 Time Seen by Provider: 19:35 Initial Comments Since the ER by private conveyance with his spouse and chief complaint is having some swelling on the left lip and cheek. He's been dealing for the past couple months with this swelling near angioedema. He does not have any swelling today and his tongue, stridor or difficulty breathing or swallowing his secretions. He is not having any wheezing or difficulty breathing or catching his breath. He has yet to figure out why he is having these problems. He did get in to see an care giver and they told him to keep using the epinephrine as necessary. He has not yet had use the epinephrine. He does take famotidine, Zyrtec and on a daily basis. He said his only been about 2 weeks since he last had steroids. He took 50 mg of Benadryl and 20 mg of famotidine at 1700 today before coming in. They tried to ride it out home but between his and his 's anxiety they decided to come in. Allergies and Home Medications Allergies Coded Allergies: JR Inhibitors (Unverified Allergy, Unknown, 06/08/14) ANGIOEDEMA OF TONGUE Home Medications Aspirin 81 Mg Tabec, 81 MG PO DAILY, (Reported) Carvedilol 12.5 Mg Tablet, 12.5 MG GT BID Prescribed by: TIM LOZOYA on 06/08/14 0831 Epinephrine 0.3 Mg/0.3 Ml Pen.injctr, 0.3 MG IM PRN PRN for anaphylaxis or angioedema Prescribed by: SARAH GARCIA on 02/17/14 202 Epinephrine 0.3 Mg/0.3 Ml Auto.injct, 0.3 MG IJ Q15M PRN for anaphylaxis Prescribed by: KIM CRUZ on 02/05/18 1101 Epinephrine 0.3 Mg/0.3 Ml Auto.injct, 0.3 MG IJ Q20M PRN for angioedema Prescribed by: KIM CRUZ on 02/12/18 0909 Fish Oil/Dha/Epa 1 Each Capsule, 1 EACH PO DAILY, (Reported) Metformin Hcl 500 Mg Tab.sr.24h, 1 EACH PO BID WITH MEALS, (Reported) Multivitamins 1 Tab Tablet, 1 TAB PO DAILY, (Reported) Omeprazole 20 Mg Capsule.dr, 20 MG PO DAILY, (Reported) Potassium Chloride 10 Meq Tablet.sa, 1 EACH PO DAILY WITH FOOD, (Reported) Prednisone 20 Mg Tab, 20 MG PO DAILY@0700 Prescribed by: TIM LOZOYA on 06/08/14 0829 Prednisone 20 Mg Tab, 60 MG PO DAILY Prescribed by: FOX STRICKLAND on 01/31/18 1613 Prednisone 20 Mg Tab, 20 MG PO DAILY Prescribed by: KIM CRUZ on 02/05/18 1101 Sitagliptin Phosphate 100 Mg Tablet, 1 EACH PO DAILY, (Reported) Vit A/Vit C/Vit E/Zinc/Copper 1 Each Tablet, 1 EACH PO DAILY, (Reported) [Fiber Therapy] , 2 TAB PO DAILY, (Reported) Patient Home Medication List Home Medication List Reviewed: Yes Review of Systems Review of Systems Constitutional: No chills, No diaphoresis EENTM: see HPI; No ear discharge, No hearing loss, No ear pain, No epistaxis, No nose congestion, No nose pain, No throat swelling Respiratory: No cough, No short of breath Cardiovascular: No chest pain, No edema Past Hzksewc-Blplsj-Wgvapk Hx Patient Social History Alcohol Use: Denies Use Recreational Drug Use: No Smoking Status: Never a Smoker 2nd Hand Smoke Exposure: No Recent Foreign Travel: No Contact w/Someone Who Travel: No Recent Infectious Disease Expo: No Recent Hopitalizations: Yes Immunizations Up To Date Date of Pneumonia Vaccine: Jun 07, 2009 Date of Influenza Vaccine: Apr 07, 2014 Seasonal Allergies Seasonal Allergies: Yes Past Medical History Surgeries: Yes Appendectomy, Cardiac, Coronary Stent, Neurological, Orthopedic, Tracheostomy, Transurethral Resection, Vasectomy Respiratory: No Cardiac: Yes (STENT PLACEMENT) Coronary Artery Disease, High Cholesterol, Hypertension Neurological: Yes (INTRACRANIAL BLEED) Neuropathy Reproductive Disorders: No Genitourinary: Yes Prostate Problems Gastrointestinal: No Musculoskeletal: Yes (RIGHT FOOT DROP, LUMBAR RADICULOPATHY/NERVE DAMAGE) Foot Drop, Chronic Back Pain Endocrine: Yes Diabetes, Non-Insulin dep HEENT: No Cancer: No Psychosocial: No Integumentary: Yes (Recurrent angioedema) Blood Disorders: Yes (POLYCYTHEMIA) Adverse Reaction/Blood Tranf: No Physical Exam Vital Signs Vital Signs - First Documented 03/24/18 18:56 Temp 98.8 Pulse 62 Resp 16 B/P (MAP) 166/98 (120) Capillary Refill : Less Than 3 Seconds Height, Weight, BMI Height: 6'1.00" Weight: 265lbs. 0.6oz. 120.638658cu; 34.56 BMI Method:Estimated General Appearance: No Apparent Distress, WD/WN Eyes: Bilateral Eye Normal Inspection, Bilateral Eye PERRL, Bilateral Eye EOMI HEENT: PERRL/EOMI, TMs Normal, Normal ENT Inspection, Pharynx Normal, Moist Mucous Membranes Neck: Full Range of Motion, Normal Inspection Respiratory: Chest Non Tender, Lungs Clear, Normal Breath Sounds Cardiovascular: Regular Rate, Rhythm, No Edema, Normal Peripheral Pulses Gastrointestinal: Normal Bowel Sounds, No Organomegaly Progress/Results/Core Measures Suspected Sepsis Recent Fever Within 48 Hours: No Infection Criteria Present: None New/Unexplained Altered Menta: No Sepsis Screen: No Definite Risk SIRS Temperature:98.8 Pulse: 62 Respiratory Rate: 16 Blood Pressure 166 /98 Mean: 120 Results/Orders My Orders Orders - KIM CRUZ Loratadine Tablet (Claritin Tablet) (03/24/18 19:30) Methylprednisolone Sod Succ (Solu-Medrol (03/24/18 19:30) Medications Given in ED Current Medications Medications Dose Ordered Sig/Luis F Route Start Time Stop Time Status Last Admin Dose Admin Loratadine 10 mg ONCE ONCE PO 03/24/18 19:30 03/24/18 19:31 DC 03/24/18 19:30 10 MG Methylprednisolone Sodium Succinate 125 mg ONCE ONCE IM 03/24/18 19:30 03/24/18 19:31 DC 03/24/18 19:30 125 MG Vital Signs/I&O 03/24/18 18:56 Temp 98.8 Pulse 62 Resp 16 B/P (MAP) 166/98 (120) Capillary Refill : Less Than 3 Seconds Blood Pressure Mean: 120 Progress Note : Time: 20:15 Progress Note We discussed starting some steroids again and gave him 125 mg Solu-Medrol. He is to continue taking the famotidine twice a day, Zyrtec twice a day and Benadryl every 6 hours until the swelling starts to with draw. We have explained in [place]oun[place]q 12-24 hrs. for the steroids start kicking in and do the job and he is willing to go home and watch this. He has 3 epinephrine pens available. Departure Impression Primary Impression: Angioedema Qualified Codes: T78.3XXA - Angioneurotic edema, initial encounter Disposition: HOME, SELF-CARE Condition: Stable Departure-Patient Inst. Decision time for Depature: 20:16 Referrals: TIM LOZOYA DO (PCP/Family) Primary Care Physician Patient Instructions: Anaphylaxis (DC) Add. Discharge Instructions: If you begin to have tongue swelling or difficulty breathing or stridor is wheezing air sounds in your upper airways then you should immediately administer [address] on your way to the emergency room for evaluation. Use the Benadryl 25-50 mg every 6 hours as needed for swelling until it starts to receive go away. Continue taking famotidine twice a day and Zyrtec twice a day. We'll put you on a longer steroid course. Try to identify the agents that might be contributing to your angioedema by removing the food item cosmetic item every week. Follow-up with the care giver and primary care. All discharge instructions reviewed with patient and/or family. Voiced understanding. Scripts Prednisone (Prednisone) 20 Mg Tab 20 MG PO BID for 7 Days, #11 TAB 0 Refills 1 tab 2x daily for 4 days then, 1 tab daily x3 days. Prov: KIM CRUZ 03/24/18 Copy Copies To 1: TIM LOZOYA TITUS J Mar 24, 2018 20:18
[2018-03-24] MEDS ORDERED: PRD20T PO (20:19)
[2018-03-24 20:32] VITALS: BP 143/87
--- OUTSIDE RECORDS SUMMARY | 2018-03-24 21:10 | XMS REPORT | Continuity of Care Document ---
Author Author [facility] Organization [facility] Address Unknown Phone Unavailable Allergies Active Description Code Type Severity Reaction Onset Reported/Identified Relationship to Patient Clinical Status Yes No Known Drug Allergies [id number] Drug Allergy Unknown N/A 09/28/2008 Yes JR Inhibitors [id number] Drug Allergy Unknown N/A 06/08/2014 Medications There [...] DO Ot I25.10 ATHSCL HEART DISEASE OF [place] CORONARY 01/31/2018 FOX STRICKLAND DO Ot L50.9 URTICARIA, UNSPECIFIED 01/31/2018 FOX STRICKLAND DO Ot T78.3XXA ANGIONEUROTIC EDEMA, INITIAL ENCOUNTER 01/31/2018 FOX STRICKLAND DO Ot T78.40XA ALLERGY, UNSPECIFIED, INITIAL ENCOUNTER 01/31/2018 FOX STRICKLAND DO Ot Z79.52 GREASE REMOVER (CURRENT) USE OF SYSTEMIC STER 01/31/2018 FOX STRICKLAND DO Ot Z79.82 CARE HOME (CURRENT) USE OF ASPIRIN 01/31/2018 FOX STRICKLAND DO Ot Z79.84 GREASE REMOVER (CURRENT) USE OF ORAL HYPOGLYC 01/31/2018 FOX [...] MD Ot I25.10 ATHSCL HEART DISEASE OF [place] CORONARY 02/05/2018 KIM CRUZ MD Ot K14.8 OTHER DISEASES OF TONGUE 02/05/2018 KIM CRUZ MD Ot T78.3XXA ANGIONEUROTIC EDEMA, INITIAL ENCOUNTER 02/05/2018 KIM CRUZ MD Ot Z79.52 CARE HOME (CURRENT) USE OF SYSTEMIC STER 02/05/2018 KIM CRUZ MD Ot Z79.82 GREASE REMOVER (CURRENT) USE OF ASPIRIN 02/05/2018 KIM CRUZ [...] MD Ot I25.10 ATHSCL HEART DISEASE OF [place] CORONARY 02/07/2018 KIM CRUZ MD Ot K14.8 OTHER DISEASES OF TONGUE 02/07/2018 KIM CRUZ MD Ot T78.3XXA ANGIONEUROTIC EDEMA, INITIAL ENCOUNTER 02/07/2018 KIM CRUZ MD Ot Z79.52 GREASE REMOVER (CURRENT) USE OF SYSTEMIC STER 02/07/2018 KIM CRUZ MD Ot Z79.82 GREASE REMOVER (CURRENT) USE OF ASPIRIN 02/07/2018 KIM CRUZ MD Ot Z79.84 GREASE REMOVER (CURRENT) USE OF ORAL HYPOGLYC 02/07/2018 KIM CRUZ MD Ot Z88.8 ALLERGY STATUS TO [facility] DRUG/MEDS/BIOL SUB 02/07/2018 KIM CRUZ MD [...] MD Ot I25.10 ATHSCL HEART DISEASE OF [place] CORONARY 02/12/2018 KIM CRUZ MD Ot T78.3XXA ANGIONEUROTIC EDEMA, INITIAL ENCOUNTER 02/12/2018 KIM CRUZ MD Ot T78.40XA ALLERGY, UNSPECIFIED, INITIAL ENCOUNTER 02/12/2018 KIM CRUZ MD Ot Z79.52 GREASE REMOVER (CURRENT) USE OF SYSTEMIC STER 02/12/2018 KIM CRUZ MD Ot Z79.82 CARE HOME (CURRENT) USE OF ASPIRIN 02/12/2018 KIM CRUZ MD Ot Z79.84 GREASE REMOVER (CURRENT) USE OF ORAL HYPOGLYC 02/12/2018 KIM [...] MD Ot I25.10 ATHSCL HEART DISEASE OF [place] CORONARY 02/14/2018 KIM CRUZ MD Ot T78.3XXA ANGIONEUROTIC EDEMA, INITIAL ENCOUNTER 02/14/2018 KIM CRUZ MD Ot T78.40XA ALLERGY, UNSPECIFIED, INITIAL ENCOUNTER 02/14/2018 KIM CRUZ MD Ot Z79.52 CARE HOME (CURRENT) USE OF SYSTEMIC STER 02/14/2018 KIM CRUZ MD Ot Z79.82 CARE HOME (CURRENT) USE OF ASPIRIN 02/14/2018 KIM CRUZ MD Ot Z79.84 GREASE REMOVER (CURRENT) USE OF ORAL HYPOGLYC 02/14/2018 KIM [...] MD, Ot I25.10 ATHSCL HEART DISEASE OF [place] CORONARY 02/16/2018 KING SOTOMAYOR MD Ot K13.0 DISEASES OF LIPS 02/16/2018 KING SOTOMAYOR MD Ot T78.3XXA ANGIONEUROTIC EDEMA, INITIAL ENCOUNTER 02/16/2018 KING SOTOMAYOR MD Ot Z79.52 GREASE REMOVER (CURRENT) USE OF SYSTEMIC STER 02/16/2018 KING SOTOMAYOR MD Ot Z79.82 CARE HOME (CURRENT) USE OF ASPIRIN 02/16/2018 KING SOTOMAYOR MD, Ot Z79.84 GREASE REMOVER (CURRENT) USE OF ORAL HYPOGLYC 02/16/2018 KING [...] MD Ot I25.10 ATHSCL HEART DISEASE OF [place] CORONARY 02/17/2018 KING SOTOMAYOR MD, Ot K13.0 DISEASES OF LIPS 02/17/2018 KING SOTOMAYOR MD, Ot T78.3XXA ANGIONEUROTIC EDEMA, INITIAL ENCOUNTER 02/17/2018 KING SOTOMAYOR MD, Ot Z79.52 GREASE REMOVER (CURRENT) USE OF SYSTEMIC STER 02/17/2018 KING SOTOMAYOR MD, Ot Z79.82 CARE HOME (CURRENT) USE OF ASPIRIN 02/17/2018 KING SOTOMAYOR MD, Ot Z79.84 CARE HOME (CURRENT) USE OF ORAL HYPOGLYC 02/17/2018 KING SOTOMAYOR MD, Ot Z88.8 ALLERGY STATUS TO [facility] DRUG/MEDS/BIOL SUB 02/17/2018 KING SOTOMAYOR MD, Ot Z90.89 ACQUIRED ABSENCE OF OTHER ORGANS 02/17/2018 KING SOTOMAYOR MD, Ot Z93.0 TRACHEOSTOMY STATUS 02/17/2018 KING SOTOMAYOR MD, Ot Z95.5 PRESENCE OF CORONARY ANGIOPLASTY IMPLANT 02/17/2018 KING SOTOMAYOR MD, Ot Z98.52 VASECTOMY STATUS 03/02/2018 SARAH CHUNG MD Ot 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 03/02/2018 SARAH CHUNG MD Ot E78.00 PURE HYPERCHOLESTEROLEMIA, UNSPECIFIED 03/02/2018 SARAH CHUNG MD Ot I10 ESSENTIAL (PRIMARY) HYPERTENSION 03/02/2018 SARAH CHUNG MD, Ot I25.10 ATHSCL HEART DISEASE OF [place] CORONARY 03/02/2018 SARAH CHUNG MD Ot L50.9 URTICARIA, UNSPECIFIED 03/02/2018 SARAH CHUNG MD Ot T78.3XXA ANGIONEUROTIC EDEMA, INITIAL ENCOUNTER 03/02/2018 SARAH CHUNG MD, Ot Z79.52 CARE HOME (CURRENT) USE OF SYSTEMIC STER 03/02/2018 SARAH CHUNG MD Ot Z79.82 GREASE REMOVER (CURRENT) USE OF ASPIRIN 03/02/2018 SARAH CHUNG MD Ot Z79.84 GREASE REMOVER (CURRENT) USE OF ORAL HYPOGLYC 03/02/2018 SARAH CHUNG MD, Ot Z88.8 ALLERGY STATUS TO [facility] DRUG/MEDS/BIOL SUB 03/02/2018 SARAH CHUNG MD, Ot Z90.79 ACQUIRED ABSENCE OF OTHER GENITAL ORGAN( 03/02/2018 SARAH CHUNG MD, Ot Z90.89 ACQUIRED ABSENCE OF OTHER ORGANS 03/02/2018 SARAH CHUNG MD, Ot Z93.0 TRACHEOSTOMY STATUS 03/02/2018 SARAH CHUNG MD, Ot Z95.5 PRESENCE OF CORONARY ANGIOPLASTY IMPLANT 03/02/2018 SARAH CHUNG MD, Ot Z98.52 VASECTOMY STATUS 03/04/2018 SARAH CHUNG MD, Ot 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 03/04/2018 SARAH CHUNG MD, Ot E78.00 PURE HYPERCHOLESTEROLEMIA, UNSPECIFIED 03/04/2018 SARAH CHUNG MD, Ot I10 ESSENTIAL (PRIMARY) HYPERTENSION 03/04/2018 SARAH CHUNG MD, Ot I25.10 ATHSCL HEART DISEASE OF [place] CORONARY 03/04/2018 SARAH CHUNG MD, Ot L50.9 URTICARIA, UNSPECIFIED 03/04/2018 SARAH CHUNG MD, Ot T78.3XXA ANGIONEUROTIC EDEMA, INITIAL ENCOUNTER 03/04/2018 SARAH CHUNG MD, Ot Z79.52 GREASE REMOVER (CURRENT) USE OF SYSTEMIC STER 03/04/2018 SARAH CHUNG MD Ot Z79.82 CARE HOME (CURRENT) USE OF ASPIRIN 03/04/2018 SARAH CHUNG MD, Ot Z79.84 CARE HOME (CURRENT) USE OF ORAL HYPOGLYC 03/04/2018 SARAH CHUNG MD, Ot Z88.8 ALLERGY STATUS TO [facility] DRUG/MEDS/BIOL SUB 03/04/2018 SARAH CHUNG MD, Ot Z90.79 ACQUIRED ABSENCE OF OTHER GENITAL ORGAN( 03/04/2018 SARAH CHUNG MD, Ot Z90.89 ACQUIRED ABSENCE OF OTHER ORGANS 03/04/2018 BRUEGGEMANN MD, SARAH T Ot Z93.0 TRACHEOSTOMY STATUS 03/04/2018 SHELDON YARBROUGH, SARAH Nicholson Ot Z95.5 PRESENCE OF CORONARY ANGIOPLASTY IMPLANT 03/04/2018 SHELDON YARBROUGH, SARAH Nicholson Ot Z98.52 VASECTOMY STATUS 03/05/2018 PATRICIA HERNANDEZ APRN Ot E11.9 TYPE 2 DIABETES MELLITUS WITHOUT COMPLIC 03/05/2018 PATRICIA HERNANDEZ APRN Ot E78.00 PURE HYPERCHOLESTEROLEMIA, UNSPECIFIED 03/05/2018 PATRICIA HERNANDEZ APRN Ot I10 ESSENTIAL (PRIMARY) HYPERTENSION 03/05/2018 PATRICIA HERNANDEZ APRN Ot I25.10 ATHSCL HEART DISEASE OF [place] CORONARY 03/05/2018 PATRICIA HERNANDEZ APRN Ot T78.3XXA ANGIONEUROTIC EDEMA, INITIAL ENCOUNTER 03/05/2018 PATRICIA HERNANDEZ APRN Ot T78.40XA ALLERGY, UNSPECIFIED, INITIAL ENCOUNTER 03/05/2018 PATRICIA HERNANDEZ APRN Ot Z79.52 CARE HOME (CURRENT) USE OF SYSTEMIC STER 03/05/2018 PATRICIA HERNANDEZ APRN Ot Z79.82 CARE HOME (CURRENT) USE OF ASPIRIN 03/05/2018 PATRICIA HERNANDEZ APRN Ot Z79.84 GREASE REMOVER (CURRENT) USE OF ORAL HYPOGLYC 03/05/2018 PATRICIA HERNANDEZ APRN Ot Z87.820 PERSONAL HISTORY OF TRAUMATIC BRAIN INJU 03/05/2018 PATRICIA HERNANDEZ APRN Ot Z88.8 ALLERGY STATUS TO [facility] DRUG/MEDS/BIOL SUB 03/05/2018 PATRICIA HERNANDEZ APRN Ot Z90.79 ACQUIRED ABSENCE OF OTHER GENITAL ORGAN( 03/05/2018 PATRICIA HERNANDEZ APRN Ot Z90.89 ACQUIRED ABSENCE OF OTHER ORGANS 03/05/2018 PATRICIA HERNANDEZ APRN Ot Z93.0 TRACHEOSTOMY STATUS 03/05/2018 PATRICIA HERNANDEZ APRN Ot Z95.5 PRESENCE OF CORONARY ANGIOPLASTY IMPLANT 03/05/2018 PATRICIA HERNANDEZ APRN Ot Z98.52 VASECTOMY STATUS 03/07/2018 PATRICIA HERNANDEZ APRN Ot E11.9 TYPE 2 DIABETES MELLITUS WITHOUT COMPLIC 03/07/2018 PATRICIA HERNANDEZ APRN Ot E78.00 PURE HYPERCHOLESTEROLEMIA, UNSPECIFIED 03/07/2018 PATRICIA HERNANDEZ APRN Ot I10 ESSENTIAL (PRIMARY) HYPERTENSION 03/07/2018 PATRICIA HERNANDEZ APRN Ot I25.10 ATHSCL HEART DISEASE OF [place] CORONARY 03/07/2018 PATRICIA HERNANDEZ APRN Ot T78.3XXA ANGIONEUROTIC EDEMA, INITIAL ENCOUNTER 03/07/2018 PATRICIA HERNANDEZ APRN Ot T78.40XA ALLERGY, UNSPECIFIED, INITIAL ENCOUNTER 03/07/2018 PATRICIA HERNANDEZ APRN Ot Z79.52 CARE HOME (CURRENT) USE OF SYSTEMIC STER 03/07/2018 PATRICIA HERNANDEZ APRN Ot Z79.82 CARE HOME (CURRENT) USE OF ASPIRIN 03/07/2018 PATRICIA HERNANDEZ APRN Ot Z79.84 GREASE REMOVER (CURRENT) USE OF ORAL HYPOGLYC 03/07/2018 PATRICIA [...] HERNANDEZ APRN Ot Z98.52 VASECTOMY STATUS 03/09/2018 SHELDON YARBROUGH, SARAH Nicholson Ot 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 03/09/2018 SARAH CHUNG MD Ot E78.00 PURE HYPERCHOLESTEROLEMIA, UNSPECIFIED 03/09/2018 SARAH CHUNG MD Ot I10 ESSENTIAL (PRIMARY) HYPERTENSION 03/09/2018 SARAH CHUNG MD Ot I25.10 ATHSCL HEART DISEASE OF [place] CORONARY 03/09/2018 SARAH CHUNG MD Ot L50.9 URTICARIA, UNSPECIFIED 03/09/2018 SARAH CHUNG MD Ot T78.3XXA ANGIONEUROTIC EDEMA, INITIAL ENCOUNTER 03/09/2018 SARAH CHUNG MD Ot Z79.52 CARE HOME (CURRENT) USE OF SYSTEMIC STER 03/09/2018 SARAH CHUNG MD Ot Z79.82 CARE HOME (CURRENT) USE OF ASPIRIN 03/09/2018 SARAH CHUNG MD Ot Z79.84 CARE HOME (CURRENT) USE OF ORAL HYPOGLYC 03/09/2018 SARAH CHUNG MD Ot Z88.8 ALLERGY STATUS TO [facility] DRUG/MEDS/BIOL SUB 03/09/2018 SARAH CHUNG MD Ot Z90.79 ACQUIRED ABSENCE OF OTHER GENITAL ORGAN( 03/09/2018 SARAH CHUNG MD Ot Z90.89 ACQUIRED ABSENCE OF OTHER ORGANS 03/09/2018 SARAH CHUNG MD Ot Z93.0 TRACHEOSTOMY STATUS 03/09/2018 SARAH CHUNG MD Ot Z95.5 PRESENCE OF CORONARY ANGIOPLASTY IMPLANT 03/09/2018 SARAH CHUNG MD Ot Z98.52 VASECTOMY STATUS 03/11/2018 KING SOTOMAYOR MD Ot 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 03/11/2018 KING SOTOMAYOR MD, Ot E78.00 PURE HYPERCHOLESTEROLEMIA, UNSPECIFIED 03/11/2018 KING SOTOMAYOR MD Ot I10 ESSENTIAL (PRIMARY) HYPERTENSION 03/11/2018 KING SOTOMAYOR MD, Ot I25.10 ATHSCL HEART DISEASE OF [place] CORONARY 03/11/2018 KING SOTOMAYOR MD Ot T78.3XXA ANGIONEUROTIC EDEMA, INITIAL ENCOUNTER 03/11/2018 KING SOTOMAYOR MD, Ot Z79.52 CARE HOME (CURRENT) USE OF SYSTEMIC STER 03/11/2018 KING SOTOMAYOR MD Ot Z79.82 GREASE REMOVER (CURRENT) USE OF ASPIRIN 03/11/2018 KING SOTOMAYOR MD, Ot Z79.84 GREASE REMOVER (CURRENT) USE OF ORAL HYPOGLYC 03/11/2018 KING SOTOMAYOR MD, Ot Z88.8 ALLERGY STATUS TO [facility]TH DRUG/MEDS/BIOL SUB 03/11/2018 KING SOTOMAYOR MD Ot Z90.79 ACQUIRED ABSENCE OF OTHER GENITAL ORGAN( 03/11/2018 KING SOTOMAYOR MD Ot Z90.89 ACQUIRED ABSENCE OF OTHER ORGANS 03/11/2018 KING SOTOMAYOR MD, Ot Z93.0 TRACHEOSTOMY STATUS 03/11/2018 KING SOTOMAYOR MD Ot Z95.5 PRESENCE OF CORONARY ANGIOPLASTY IMPLANT 03/11/2018 KING SOTOMAYOR MD Ot Z98.52 VASECTOMY STATUS 03/13/2018 KING SOTOMAYOR MD Ot 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 03/13/2018 KING SOTOMAYOR MD Ot E78.00 PURE HYPERCHOLESTEROLEMIA, UNSPECIFIED 03/13/2018 KING SOTOMAYOR MD Ot I10 ESSENTIAL (PRIMARY) HYPERTENSION 03/13/2018 KING SOTOMAYOR MD Ot I25.10 ATHSCL HEART DISEASE OF [place] CORONARY 03/13/2018 KING SOTOMAYOR MD, Ot T78.3XXA ANGIONEUROTIC EDEMA, INITIAL ENCOUNTER 03/13/2018 KING SOTOMAYOR MD Ot Z79.52 GREASE REMOVER (CURRENT) USE OF SYSTEMIC STER 03/13/2018 KING SOTOMAYOR MD Ot Z79.82 CARE HOME (CURRENT) USE OF ASPIRIN 03/13/2018 KING SOTOMAYOR MD Ot Z79.84 CARE HOME (CURRENT) USE OF ORAL HYPOGLYC 03/13/2018 KING SOTOMAYOR MD Ot Z88.8 ALLERGY STATUS TO [facility] DRUG/MEDS/BIOL SUB 03/13/2018 KING SOTOMAYOR MD Ot Z90.79 ACQUIRED ABSENCE OF OTHER GENITAL ORGAN( 03/13/2018 KING SOTOMAYOR MD Ot Z90.89 ACQUIRED ABSENCE OF OTHER ORGANS 03/13/2018 KING SOTOMAYOR MD Ot Z93.0 TRACHEOSTOMY STATUS 03/13/2018 KING SOTOMAYOR MD Ot Z95.5 PRESENCE OF CORONARY ANGIOPLASTY IMPLANT 03/13/2018 KING SOTOMAYOR MD, Ot Z98.52 VASECTOMY STATUS 03/18/2018 Ot 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 03/18/2018 Ot E78.00 PURE HYPERCHOLESTEROLEMIA, UNSPECIFIED 03/18/2018 Ot I10 ESSENTIAL ( PRIMARY) HYPERTENSION 03/18/2018 Ot I25.10 ATHSCL HEART DISEASE OF [place] CORONARY 03/18/2018 Ot T78.3XXA ANGIONEUROTIC EDEMA, INITIAL ENCOUNTER 03/18/2018 Ot Z79.52 CARE HOME ( CURRENT) USE OF SYSTEMIC STER 03/18/2018 Ot Z79.82 GREASE REMOVER ( CURRENT) USE OF ASPIRIN 03/18/2018 Ot Z79.84 GREASE REMOVER ( CURRENT) USE OF ORAL HYPOGLYC 03/18/2018 Ot Z88.8 ALLERGY STATUS TO [facility] DRUG/MEDS/BIOL SUB 03/18/2018 Ot Z90.89 ACQUIRED ABSENCE OF OTHER ORGANS 03/18/2018 Ot Z93.0 TRACHEOSTOMY STATUS 03/18/2018 Ot Z95.5 PRESENCE OF CORONARY ANGIOPLASTY IMPLANT 03/18/2018 Ot Z98.52 VASECTOMY STATUS 03/18/2018 TIM LOGAN DO Ot K76.0 FATTY (CHANGE OF) LIVER, NOT ELSEWHERE C 03/18/2018 TIM LOGAN DO Ot R74.8 ABNORMAL LEVELS OF OTHER SERUM ENZYMES 03/18/2018 Ot 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 03/18/2018 Ot E78.00 PURE HYPERCHOLESTEROLEMIA, UNSPECIFIED 03/18/2018 Ot I10 ESSENTIAL ( PRIMARY) HYPERTENSION 03/18/2018 Ot I25.10 ATHSCL HEART DISEASE OF [place] CORONARY 03/18/2018 Ot T78.3XXA ANGIONEUROTIC EDEMA, INITIAL ENCOUNTER 03/18/2018 Ot Z79.52 CARE HOME ( CURRENT) USE OF SYSTEMIC STER 03/18/2018 Ot Z79.82 GREASE REMOVER ( CURRENT) USE OF ASPIRIN 03/18/2018 Ot Z79.84 GREASE REMOVER ( CURRENT) USE OF ORAL HYPOGLYC 03/18/2018 Ot Z88.8 ALLERGY STATUS TO [facility] DRUG/MEDS/BIOL SUB 03/18/2018 Ot Z90.89 ACQUIRED ABSENCE OF OTHER ORGANS 03/18/2018 Ot Z93.0 TRACHEOSTOMY STATUS 03/18/2018 Ot Z95.5 PRESENCE OF CORONARY ANGIOPLASTY IMPLANT 03/18/2018 Ot Z98.52 VASECTOMY STATUS Procedures There is [...] Status Pt. Type Provider Facility Loc./Unit Complaint [id number] 03/11/2018 17:55:00 03/11/2018 20:08:00 DIS Emergency KING SOTOMAYOR MD [facility] ER ALLERGIC REACTION [id number] 03/05/2018 10:39:00 03/05/2018 13:58:00 DIS Emergency PATRICIA HERNANDEZ APRN [facility] ER ALLERGIC REACTION;TONGUE SWELLING;HIVES [id number] 03/02/2018 20:40:00 03/02/2018 23:23:00 DIS Emergency SARAH CHUNG MD [facility] ER ALLERGIC REACTION, HIVES [id number] 02/15/2018 21:51:00 02/16/2018 02:53:00 DIS Emergency KING SOTOMAYOR MD [facility] ER THROAT TIGHT, TOUNGE/ LIP NUMB, ALLERGIC REACTION [id number] 02/12/2018 03:51:00 02/12/2018 09:58:00 DIS Emergency KIM CRUZ MD [facility] ER ALLERGIC REACTION [id number] 02/05/2018 08:36:00 02/05/2018 11:33:00 DIS Emergency KIM CRUZ MD [facility] ER HIVES;TONGUE SWELLING [id number] 01/31/2018 13:32:00 01/31/2018 16:26:00 DIS Emergency FOX STRICKLAND DO [facility] ER ALLERGIC REACTION, FACE, LIP SWELLING [id number] 12/10/2016 06:50:00 12/10/2016 23:59:59 CLS Outpatient JUNIOR LOGAN DOQUELINE S [facility] RAD ELEVATED LFT'S [id number] 01/03/2015 18:00:00 02/23/2015 00:01:00 DIS Outpatient JUNIOR LOGAN DOQUELINE S [facility] DSME DM TYPE 2 [id number] 09/13/2014 09:48:00 12/12/2014 00:01:00 DIS Outpatient JUNIOR LOGAN DOQUELINE S [facility] DSME DM TYPE 2 [id number] 06/07/2014 16:55:00 06/08/2014 10:40:00 DIS Inpatient ORENDER TIM AVITIA [facility] 4TH ANGIOEDEMA OF TONGUE; SUSPECT 2 DEGREE TO JR INHIB [id number] 02/17/2014 18:16:00 02/17/2014 20:21:00 DIS Emergency SHELDON YARBROUGH, SARAH Nicholson [facility] ER ALLERGIC REACTION/ TONGUE SWELLING [id number] 03/14/2018 14:32:00 Document Registration [email or web address] 01/04/2015 09:37:35 ACT Document Registration 08/02/16 03/12/2018 23:04:15 03/12/2018 23:59:59 CLS Outpatient Tim Logan
== END 2018-03-24 20:33 | disposition home or self-care (01) ==
LOC: EDUNIT# 18:42 → ER 18:43
DX: T78.3XXA Angioneurotic edema, initial encounter (principal); I25.10 Atherosclerotic heart disease of native coronary artery without angina pectoris; E78.00 Pure hypercholesterolemia, unspecified; I10 Essential (primary) hypertension; E11.42 Type 2 diabetes mellitus with diabetic polyneuropathy; Z87.820 Personal history of traumatic brain injury; Z88.8 Allergy status to other drugs, medicaments and biological substances; Z79.82 Long term (current) use of aspirin; Z79.84 Long term (current) use of oral hypoglycemic drugs; Z79.52 Long term (current) use of systemic steroids; Z95.5 Presence of coronary angioplasty implant and graft; Z90.89 Acquired absence of other organs; Z93.0 Tracheostomy status; Z90.79 Acquired absence of other genital organ(s); Z98.52 Vasectomy status
CPT/HCPCS: 96372; 99284

== ENCOUNTER → 2018-12-10 | Outpatient (CLI) | payer MEDICARE, OTHER ==
--- NOTE | 2018-12-10 13:33 | Diagnostic Imaging Report ---
PROCEDURE: US Thyroid. TECHNIQUE: Multiple real-time grayscale images were obtained of the thyroid in various projections. INDICATION: Dysphagia. FINDINGS: Right lobe of the thyroid measures 4.8 x 2.1 x 1.7 cm and the left lobe measures 4.1 x 1.9 x 1.9 cm. There is a hypoechoic solid-appearing nodule in the lower pole of the right lobe of the thyroid measuring 15 mm x 13 mm x 9 mm. No microcalcifications are seen. Left lobe shows homogeneous echotexture. No mass on the left is seen. Isthmus is 3 mm in thickness. IMPRESSION: 15 mm hypoechoic nodule in the right lobe of the thyroid. No microcalcifications are identified. Sonographic followup in six months versus fine-needle aspiration would be recommended. Dictated by: Dictated on workstation # [id number]
== END ==
LOC: RAD 11:41
PROVIDERS: ATTEND Nurse Practitioner Family
DX: E04.1 Nontoxic single thyroid nodule (principal); R13.10 Dysphagia, unspecified
CPT/HCPCS: 76536

== ENCOUNTER → 2021-03-01 | Outpatient (CLI) | payer MEDICARE, OTHER ==
--- NOTE | 2021-03-01 12:55 | Diagnostic Imaging Report ---
EXAMINATION: CHEST (PA AND LATERAL) CLINICAL INDICATION: 70-year-old male, worsening shortness of breath. COMPARISON: October 19, 2008. FINDINGS: Heart size and mediastinal contours are unchanged. There is no identified pneumothorax. There is no pleural effusion. There is no identified focal airspace consolidation. IMPRESSION: No identified acute cardiopulmonary abnormality. Dictated by: Dictated on workstation # [id number]
== END ==
LOC: RAD 12:19
PROVIDERS: ATTEND Family Medicine
DX: R06.02 Shortness of breath (principal); R05.9 Cough, unspecified
CPT/HCPCS: 71046

== ENCOUNTER → 2021-05-10 | Outpatient (CLI) | payer MEDICARE, OTHER | LOC: LABNPT 06:14 | PROVIDERS: ATTEND Orthopaedic Surgery | DX: Z01.812 Encounter for preprocedural laboratory examination (principal); Z20.822 Contact with and (suspected) exposure to COVID-19 | CPT/HCPCS: 87635 ==

== ENCOUNTER → 2021-08-02 | Outpatient (CLI) | payer MEDICARE, OTHER ==
--- NOTE | 2021-08-02 11:49 | Diagnostic Imaging Report ---
INDICATION: COUGH COMPARISON: 03/01/2021 FINDINGS: Frontal and lateral views of the chest demonstrate normal heart size and pulmonary vascularity. The lungs are clear. There are no signs of infiltrate, pleural effusions or pneumothoraces. The visualized osseous structures show no acute abnormalities. IMPRESSION: 1. No acute process. No signs of infiltrates, effusions or pneumothoraces. Dictated by: Dictated on workstation # [id number]
== END ==
LOC: RAD 11:16
PROVIDERS: ATTEND Family Medicine
DX: R05.9 Cough, unspecified (principal)
CPT/HCPCS: 71046

== ENCOUNTER → 2021-11-16 | Outpatient (CLI) | payer MEDICARE, OTHER ==
--- NOTE | 2021-11-16 16:03 | Diagnostic Imaging Report ---
CT CHEST WO TECHNIQUE: Multiple contiguous axial images were obtained through the chest without the use of intravenous contrast. All CT scans use one or more of the following dose optimizing techniques: automated exposure control, MA and/or KvP adjustment based on a patient size and exam type, or iterative reconstruction. INDICATION: Dyspnea and cough COMPARISON: None available. FINDINGS: Lungs and airway: There are linear retained secretions within the trachea. No edema. Patchy groundglass opacities in the superior segment of the left lower lobe are likely due to an infectious process. A subpleural nodule within the superior segment of the right lower lobe has central calcification indicative of a benign process. No pulmonary fibrosis. Pleura: No pleural effusion or pneumothorax. Heart and mediastinum: No supraclavicular or axillary lymphadenopathy. No mediastinal or hilar lymphadenopathy. The heart is normal in size without pericardial effusion. Severe coronary artery calcifications are present. Upper abdomen: Diffuse hepatic steatosis. Atherosclerosis of the aorta. Musculoskeletal: No concerning focal osseous lesions. IMPRESSION: 1. Patchy consolidations in the superior segment of the left lower lobe are most likely due to pneumonia. 2. Diffuse hepatic steatosis. 3. Severe coronary artery calcifications. Dictated by: Dictated on workstation # [id number]
== END ==
LOC: RAD 09:45
PROVIDERS: ATTEND Family Medicine
DX: I25.10 Atherosclerotic heart disease of native coronary artery without angina pectoris (principal); J44.9 Chronic obstructive pulmonary disease, unspecified; K76.0 Fatty (change of) liver, not elsewhere classified
CPT/HCPCS: 71250

== ENCOUNTER 2022-01-08 12:46 | Emergency (ER) | payer MEDICARE, OTHER ==
[~2022-01-08] VITALS: Ht 185.5 cm; Wt 124.0 kg
[2022-01-08 13:14] LABS: BASOPHILS # (AUTO) 0.1 10^3/uL (0.0-0.1); BASOPHILS % (AUTO) 1 % (0-10); EOSINOPHILS # (AUTO) 0.4 10^3/uL (0.0-0.3); EOSINOPHILS % (AUTO) 5 % (0-10); HEMATOCRIT 42 % (40-54); HEMOGLOBIN 13.8 g/dL (13.3-17.7); LYMPHOCYTES # (AUTO) 2.1 10^3/uL (1.0-4.0); LYMPHOCYTES % (AUTO) 26 % (12-44); MEAN CORPUSCULAR HEMOGLOBIN 29 pg (25-34); MEAN CORPUSCULAR HGB CONC 33 g/dL (32-36); MEAN CORPUSCULAR VOLUME 89 fL (80-99); MEAN PLATELET VOLUME 11.6 fL (9.0-12.2); MONOCYTES # (AUTO) 0.5 10^3/uL (0.0-1.0); MONOCYTES % (AUTO) 6 % (0-12); NEUTROPHILS # (AUTO) 5.1 10^3/uL (1.8-7.8); NEUTROPHILS % (AUTO) 62 % (42-75); PLATELET COUNT 226 10^3/uL (130-400); WHITE BLOOD COUNT 8.2 10^3/uL (4.3-11.0)
[2022-01-08] MEDS ORDERED: ASPIRIN 81 MG CHEW (CHILDREN'S ASA) PO ONE (13:15)
[2022-01-08 13:24] LABS: ALBUMIN 4.2 GM/DL (3.2-4.5); POTASSIUM 4.3 MMOL/L (3.6-5.0)
[2022-01-08 13:25] LABS: CALCIUM 9.4 MG/DL (8.5-10.1)
[2022-01-08 13:28] LABS: BILIRUBIN,TOTAL 1.1 MG/DL (0.1-1.0)
[2022-01-08 13:30] LABS: CREATININE SERUM 1.34 MG/DL (0.60-1.30)
[2022-01-08 13:33] LABS: MAGNESIUM 1.9 MG/DL (1.6-2.4)
[2022-01-08 13:38] LABS: PROTHROMBIN TIME PATIENT 13.7 SEC (12.2-14.7)
[2022-01-08] MEDS ORDERED: NITROGLYCERIN 0.4 MG SL TABS BTL 25'S SL PRN (13:45)
--- NOTE | 2022-01-08 13:47 | ED Chest Pain ---
General Chief Complaint: Chest Pain Stated Complaint: CHEST PAIN - COUGH - CONGESTION - SOA Nursing Triage Note: Pt states that he woke up at 0500 with chest pain. He recently had pneumonia and has been using his albuterol inhaler for the past 2-3 weeks. He is still having shortness of breath and a cough. Source: patient Exam Limitations: no limitations History of Present Illness Date Seen by Provider: Jan 08, 2022 Time Seen by Provider: 13:45 Initial Comments To ER with tight left-sided chest pain that he noticed that 5 AM this morning upon awakening. The pain has been constant since then rated at 7 out of 10 currently. Nothing makes it better nothing makes it worse. He has recently had pneumonia within the past 3 weeks finished an antibiotic and is still taking breathing treatments. No fevers. He does have a history of coronary artery disease with a stent placed in [address] Jones at [facility] in [place]. He is currently on aspirin. Timing/Duration: 4-6 hours Severity/Quality: moderate Location: central Radiation: no radiation Activities at Onset: none ASA po VP SCIENTIFIC AFFAIRS: No NTG SL VP SCIENTIFIC AFFAIRS: No Associated Symptoms: denies symptoms Allergies and Home Medications Allergies Coded Allergies: JR Inhibitors (Unverified Allergy, Unknown, 06/08/14) ANGIOEDEMA OF TONGUE Patient Home Medication List Home Medication List Reviewed: Yes Aspirin (Aspirin Ec 81 Mg) 81 Mg Tabec, 81 MG PO DAILY, (Reported) Entered as Reported by: BERTO PEDRAZA on 10/18/09 1725 Carvedilol (Coreg Tablet) 12.5 Mg Tablet, 12.5 MG GT BID Prescribed by: TIM LOZOYA on 06/08/14 0831 Epinephrine (Epipen 2-Bridger) 0.3 Mg/0.3 Ml Pen.injctr, 0.3 MG IM PRN PRN for anaphylaxis or angioedema Prescribed by: SARAH GARCIA on 02/17/14 202 Epinephrine (Epipen) 0.3 Mg/0.3 Ml Auto.injct, 0.3 MG IJ Q15M PRN for anaphylaxis Prescribed by: KIM CRUZ on 02/05/18 1101 Epinephrine (Epipen 2-Bridger) 0.3 Mg/0.3 Ml Auto.injct, 0.3 MG IJ Q20M PRN for angioedema Prescribed by: KIM CRUZ on 02/12/18 0909 Fish Oil/Dha/Epa (Fish Oil 1,200 Mg Fish Oil) 1 Each Capsule, 1 EACH PO DAILY, (Reported) Entered as Reported by: FELIX HAMMER on 06/07/14 1559 Metformin Hcl (Metformin Er 500MG) 500 Mg Tab.sr.24h, 1 EACH PO BID WITH MEALS, (Reported) Entered as Reported by: BERTO PEDRAZA on 10/18/09 1724 Multivitamins (Multiple Vitamin) 1 Tab Tablet, 1 TAB PO DAILY, (Reported) Entered as Reported by: MARYCRUZ CASILLAS on 09/28/08 1129 Omeprazole (Prilosec 20 Mg) 20 Mg Capsule.dr, 20 MG PO DAILY, (Reported) Entered as Reported by: MARYCRUZ CASILLAS on 09/28/08 1128 Potassium Chloride (Klor-Con 10 Tablet) 10 Meq Tablet.sa, 1 EACH PO DAILY WITH FOOD, (Reported) Entered as Reported by: MARYCRUZ CASILLAS on 09/28/08 1128 Prednisone (Deltasone Tablet) 20 Mg Tab, 20 MG PO DAILY@0700 Prescribed by: TIM LOZOYA on 06/08/14 0829 Prednisone (Prednisone) 20 Mg Tab, 60 MG PO DAILY Prescribed by: FOX STRICKLAND on 01/31/18 1613 Prednisone (Prednisone) 20 Mg Tab, 20 MG PO DAILY Prescribed by: KIM CRUZ on 02/05/18 1101 Prednisone (Prednisone) 20 Mg Tab, 20 MG PO BID Prescribed by: KIM CRUZ on 03/24/18 2019 Sitagliptin Phosphate (Januvia) 100 Mg Tablet, 1 EACH PO DAILY, (Reported) Entered as Reported by: FELIX HAMMER on 06/07/14 1559 Vit A/Vit C/Vit E/Zinc/Copper (Preservision Tablet) 1 Each Tablet, 1 EACH PO DAILY, (Reported) Entered as Reported by: JHONATAN VIZCAINO on 09/17/10 1100 [Fiber Therapy] , 2 TAB PO DAILY, (Reported) Entered as Reported by: JHONATAN VIZCAINO on 09/17/10 1100 [Matanx] , (Reported) Entered as Reported by: OLY CLARKE on 02/17/14 1850 Review of Systems Review of Systems Constitutional: see HPI EENTM: No Symptoms Reported Respiratory: No Symptoms Reported; Denies Cough, Denies Orthopnea Cardiovascular: See HPI, Chest Pain Gastrointestinal: No Symptoms Reported Genitourinary: No Symptoms Reported Musculoskeletal: no symptoms reported Skin: no symptoms reported Psychiatric/Neurological: No Symptoms Reported Endocrine: No Symptoms Reported Hematologic/Lymphatic: No Symptoms Reported Past Luvmizp-Pvedvi-Kbibwb Hx Patient Social History Tobacco Use?: No Use of E-Cig and/or Vaping dev: No Substance use?: No Alcohol Use?: No Pt feels they are or have been: No Seasonal Allergies Seasonal Allergies: Yes Past Medical History Surgeries: Yes Appendectomy, Cardiac, Coronary Stent, Neurological, Orthopedic, Tracheostomy, Transurethral Resection, Vasectomy Respiratory: No Cardiac: Yes (STENT PLACEMENT) Coronary Artery Disease, High Cholesterol, Hypertension Neurological: Yes (INTRACRANIAL BLEED) Neuropathy Reproductive Disorders: No Genitourinary: Yes Prostate Problems Gastrointestinal: No Musculoskeletal: Yes (RIGHT FOOT DROP, LUMBAR RADICULOPATHY/NERVE DAMAGE) Foot Drop, Chronic Back Pain Endocrine: Yes Diabetes, Non-Insulin dep HEENT: No Cancer: No Psychosocial: No Integumentary: Yes (Recurrent angioedema) Blood Disorders: Yes (POLYCYTHEMIA) Adverse Reaction/Blood Tranf: No Physical Exam Vital Signs Vital Signs - First Documented 01/08/22 12:49 Temp 36.5 Pulse 63 Resp 19 B/P (MAP) 140/64 (89) Pulse Ox 96 O2 Delivery Room Air O2 Flow Rate 2.00 Capillary Refill : Less Than 3 Seconds Height, Weight, BMI Height: 6'1.00" Weight: 265lbs. 0.6oz. [id number]; 36.00 BMI Method:Estimated General Appearance: No Apparent Distress, WD/WN HEENT: PERRL/EOMI, TMs Normal Respiratory: No Accessory Muscle Use, No Respiratory Distress Cardiovascular: Regular Rate, Rhythm, Normal Peripheral Pulses Gastrointestinal: Non Tender, Soft Extremity: Normal Capillary Refill, Normal Inspection Neurologic/Psychiatric: Alert, Oriented x3 Skin: Normal Color, Warm/Dry Progress/Results/Core Measures Results/Orders Lab Results Laboratory Tests Test 01/08/22 12:55 01/08/22 13:03 Range/Units Influenza Type A (RT-PCR) Not Detected Not Detecte Influenza Type B (RT-PCR) Not Detected Not Detecte SARS-CoV-2 RNA (RT-PCR) Not Detected Not Detecte White Blood Count 8.2 4.3-11.0 10^3/uL Red Blood Count 4.70 4.30-5.52 10^6/uL Hemoglobin 13.8 13.3-17.7 g/dL Hematocrit 42 40-54 % Mean Corpuscular Volume 89 80-99 fL Mean Corpuscular Hemoglobin 29 25-34 pg Mean Corpuscular Hemoglobin Concent 33 32-36 g/dL Red Cell Distribution Width 13.6 10.0-14.5 % Platelet Count 226 130-400 10^3/uL Mean Platelet Volume 11.6 9.0-12.2 fL Immature Granulocyte % (Auto) 1 % Neutrophils (%) (Auto) 62 42-75 % Lymphocytes (%) (Auto) 26 12-44 % Monocytes (%) (Auto) 6 0-12 % Eosinophils (%) (Auto) 5 0-10 % Basophils (%) (Auto) 1 0-10 % Neutrophils # (Auto) 5.1 1.8-7.8 10^3/uL Lymphocytes # (Auto) 2.1 1.0-4.0 10^3/uL Monocytes # (Auto) 0.5 0.0-1.0 10^3/uL Eosinophils # (Auto) 0.4 H 0.0-0.3 10^3/uL Basophils # (Auto) 0.1 0.0-0.1 10^3/uL Immature Granulocyte # (Auto) 0.0 0.0-0.1 10^3/uL Prothrombin Time 13.7 12.2-14.7 SEC INR Comment 1.0 0.8-1.4 Activated Partial Thromboplast Time 27 24-35 SEC Sodium Level 136 135-145 MMOL/L Potassium Level 4.3 3.6-5.0 MMOL/L Chloride Level 103 98-107 MMOL/L Carbon Dioxide Level 22 21-32 MMOL/L Anion Gap 11 5-14 MMOL/L Blood Urea Nitrogen 16 7-18 MG/DL Creatinine 1.34 H 0.60-1.30 MG/DL Estimat Glomerular Filtration Rate 56 BUN/Creatinine Ratio 12 Glucose Level 248 H 70-105 MG/DL Calcium Level 9.4 8.5-10.1 MG/DL Corrected Calcium 9.2 8.5-10.1 MG/DL Magnesium Level 1.9 1.6-2.4 MG/DL Total Bilirubin 1.1 H 0.1-1.0 MG/DL Aspartate Amino Transf (AST/SGOT) 44 H 5-34 U/L Alanine Aminotransferase (ALT/SGPT) 64 H 0-55 U/L Alkaline Phosphatase 54 40-136 U/L Myoglobin 176.7 H 10.0-92.0 NG/ML Troponin I < 0.028 <0.028 NG/ML B-Type Natriuretic Peptide 60.5 <100.0 PG/ML Total Protein 7.0 6.4-8.2 GM/DL Albumin 4.2 3.2-4.5 GM/DL Lipase 28 8-78 U/L My Orders Orders - PATRICIA HERNANDEZ APRN Cbc With Automated Diff (01/08/22 13:07) Magnesium (01/08/22 13:07) Chest 1 View, Ap/Pa Only (01/08/22 13:07) Ekg Tracing (01/08/22 13:07) Comprehensive Metabolic Panel (01/08/22 13:07) Myoglobin Serum (01/08/22 13:07) Protime With Inr (01/08/22 13:07) Partial Thromboplastin Time (01/08/22 13:07) O2 (01/08/22 13:07) Monitor-Rhythm Ecg Trace Only (01/08/22 13:07) Lipid Panel (01/09/22 06:00) Ed Iv/Invasive Line Start (01/08/22 13:07) Lipase (01/08/22 13:07) Bnp Reilly (01/08/22 13:07) Troponin I Wilson (01/08/22 13:07) Aspirin Chewable Tablet (Baby Aspirin Ch (01/08/22 13:15) Covid 19 Inhouse Test (01/08/22 13:07) Influenza A And B By Pcr (01/08/22 13:07) Nitroglycerin 0.4 Mg Btl 25's (Nitrostat (01/08/22 13:45) Ketorolac Injection (Toradol Injection) (01/08/22 14:00) Ct Angio Chest W (01/08/22 14:48) Iohexol Injection (Omnipaque 350 Mg/Ml 1 (01/08/22 15:00) Ns (Ivpb) (Sodium Chloride 0.9% Ivpb Bag (01/08/22 15:00) Sodium Chloride Flush (Catheter Flush Sy (01/08/22 15:00) Medications Given in ED Current Medications Medications Dose Ordered Sig/Luis F Route Start Time Stop Time Status Last Admin Dose Admin Aspirin 324 mg ONCE ONCE PO 01/08/22 13:15 01/08/22 13:16 DC 01/08/22 13:38 324 MG Iohexol 100 ml ONCE ONCE IV 01/08/22 15:00 01/08/22 15:01 DC 01/08/22 14:59 87 ML Ketorolac Tromethamine 15 mg ONCE ONCE IVP 01/08/22 14:00 01/08/22 14:01 DC 01/08/22 14:32 15 MG Nitroglycerin 1 TAB Q 5 MIN X 3 NEEDED PRN SL 01/08/22 13:45 01/08/22 13:48 0.4 MG Sodium Chloride 10 ml NEEDED PRN IV 01/08/22 15:00 01/08/22 14:59 10 ML Sodium Chloride 100 ml ONCE ONCE IV 01/08/22 15:00 01/08/22 15:01 DC 01/08/22 14:59 80 ML Vital Signs/I&O 01/08/22 01/08/22 01/08/22 01/08/22 12:49 12:49 13:45 14:30 Temp 36.5 Pulse 63 58 56 Resp 19 14 18 B/P (MAP) 140/64 (89) 133/73 116/68 Pulse Ox 96 98 94 96 O2 Delivery Room Air Nasal Cannula Nasal Cannula Nasal Cannula O2 Flow Rate 2.00 2.00 2.00 Blood Pressure Mean: 89 Departure Communication (Admissions) Family Conversation NAME: JIE ASIF [facility] REC#: [id number] PT STATUS: REG ER : 1950 PHYSICIAN: PATRICIA HERNANDEZ APRN ADMIT DATE: 01/08/22/ER Signed Date of Exam:01/08/22 CT ANGIO CHEST W PROCEDURE: CT angiography of the chest with contrast. TECHNIQUE: Multiple contiguous axial images were obtained through the chest after uneventful bolus administration of intravenous contrast. 3D reconstructed CTA MIP acquisitions were also performed. Auto Exposure Controls were utilized during the CT exam to meet ALARA standards for radiation dose reduction. INDICATION: Cough and left-sided chest pain. COMPARISON: Correlation is made with prior CT chest from 11/16/2021. FINDINGS: Evaluation of the pulmonary arterial system is without evidence of thromboembolism. No filling defects are seen within central, lobar or segmental branches. The thoracic aorta is normal in caliber. No dissection is identified. No pericardial or pleural fluid is identified. Subpleural nodule in the superior segment of the right lower lobe is stable. No infiltrates are seen apart from some minimal infiltrate or atelectasis in the lingula and the left lower lobe. Upper abdomen demonstrates hepatic steatosis. IMPRESSION: 1. No evidence of pulmonary embolism or acute aortic disease. No acute features detected. 2. Hepatic steatosis. Dictated by: Dictated on workstation # [id number] Dict: 01/08/22 1526 Trans: 01/08/22 1536 [id number] Interpreted by: MALORIE HO MD Electronically signed by: MALORIE HO MD 01/08/22 1536 EKG shows sinus rhythm at 66. No ST segment elevation or depression. No ectopy. QTc 406 ms 1442-chest x-ray is clear. Suspect a pleuritic chest pain. Impression Primary Impression: Chest pain Disposition: 01 HOME, SELF-CARE Condition: Stable Departure-Patient Inst. Decision time for Depature: 14:42 Referrals: SANDRA WARE MD [facility] CECIL MILLER MD, JACQUELINE S DO (PCP/Family) Primary Care Physician GERSON ELIZABETH JR, MD Patient Instructions: Chest Pain, Adult ED Add. Discharge Instructions: . Return to ER for any concerns or worsening symptoms. Follow-up with your marketing services specialist. Call today to make an appointment to be seen. If you have not followed up with Dr. Jones then you can follow-up with one of the marketing services specialist here in [place] Dr. Jj Ware or Dr. Miller. Return to ER for any worsening or recurrent symptoms. All discharge instructions reviewed with patient and/or family. Voiced understanding. PATRICIA HERNANDEZ BANKRUPTCY PROCESSOR Jan 08, 2022 13:47
[2022-01-08] MEDS ORDERED: KETOROLAC 30 MG/ML VIAL IVP ONE (14:00)
--- NOTE | 2022-01-08 14:48 | Diagnostic Imaging Report ---
INDICATION: Chest pain and cough. TECHNIQUE/COMPARISON: A frontal chest was obtained at 2:18 PM and compared to 08/02/2021. FINDINGS: The heart is borderline in size. There is mild central vascular prominence. There is no focal infiltrate, pneumothorax, or pleural fluid. IMPRESSION: Borderline heart size with mild central vascular prominence. No acute process in the chest. Dictated by: Dictated on workstation # [id number]
[2022-01-08] MEDS ORDERED: IOHEXOL 350 MG/ML 100 ML (OMNIPAQUE 350) VIAL IV ONE (15:00)
[2022-01-08] MEDS ORDERED: CATHETER FLUSH 10 ML SYR IV PRN (15:00)
[2022-01-08] MEDS ORDERED: NS 100 ML (IVPB) BAG IV ONE (15:00)
--- NOTE | 2022-01-08 15:37 | Diagnostic Imaging Report ---
PROCEDURE: CT angiography of the chest with contrast. TECHNIQUE: Multiple contiguous axial images were obtained through the chest after uneventful bolus administration of intravenous contrast. 3D reconstructed CTA MIP acquisitions were also performed. Auto Exposure Controls were utilized during the CT exam to meet ALARA standards for radiation dose reduction. INDICATION: Cough and left-sided chest pain. COMPARISON: Correlation is made with prior CT chest from 11/16/2021. FINDINGS: Evaluation of the pulmonary arterial system is without evidence of thromboembolism. No filling defects are seen within central, lobar or segmental branches. The thoracic aorta is normal in caliber. No dissection is identified. No pericardial or pleural fluid is identified. Subpleural nodule in the superior segment of the right lower lobe is stable. No infiltrates are seen apart from some minimal infiltrate or atelectasis in the lingula and the left lower lobe. Upper abdomen demonstrates hepatic steatosis. IMPRESSION: 1. No evidence of pulmonary embolism or acute aortic disease. No acute features detected. 2. Hepatic steatosis. Dictated by: Dictated on workstation # [id number]
[2022-01-08 15:52] VITALS: BP 129/74
== END 2022-01-08 15:52 | disposition home or self-care (01) ==
LOC: EDUNIT# 12:46 → ER 12:47
DX: R07.89 Other chest pain (principal); I25.10 Atherosclerotic heart disease of native coronary artery without angina pectoris; Z95.5 Presence of coronary angioplasty implant and graft; Z20.822 Contact with and (suspected) exposure to COVID-19; Z79.82 Long term (current) use of aspirin
CPT/HCPCS: 36415; 71045; 71275; 80053; 83690; 83735; 83874; 83880; 84484; 85025; 85610; 85730; 87636; 93005; 93041

== ENCOUNTER 2022-03-27 06:46 | Inpatient (IN) | payer MEDICARE, OTHER ==
[2022-03-27] VITALS (7 sets, daily range): BP systolic 131–151; BP diastolic 67–96
[~2022-03-27] VITALS: Ht 185.4 cm; Wt 129.9 kg
[2022-03-27] MEDS ORDERED: ACETAMINOPHEN 500 MG TAB (TYLENOL) PO PRN ×2 (07:15→11:00)
[2022-03-27] MEDS ORDERED: NS IV 1000 ML 1,000 ML IV SCH ×2 (07:15→09:00)
--- NOTE | 2022-03-27 07:20 | ED Fever ---
History of Present Illness General Stated Complaint: POSS BLADDER INFECTION,URINATING ALOT Source: patient, family Exam Limitations: no limitations History of Present Illness Date Seen by Provider: Mar 27, 2022 Time Seen by Provider: 06:48 Initial Comments 71-year-old male with past medical history of CAD with stenting, diabetes, hypertension coming in due to concerns for possible infection. He states he has had what seems to be a common cold for couple weeks with cough and mild dyspnea. With that has had mild chest discomfort for the past couple weeks as well which has been unchanged. Had a home negative COVID test yesterday. Overnight he started having chills, and urinary frequency. He states he has had an infection in his bladder before, and this feels similar. He denies ever having any prostate problems. He is otherwise denying prior history of DVT or PE, nausea, vomiting, diarrhea, focal weakness or numbness, headache, neck stiffness, severe abdominal pain, dysuria, or any other concerns. He does not take any blood thinners. Allergies and Home Medications Allergies Coded Allergies: JR Inhibitors (Unverified Allergy, Unknown, 06/08/14) ANGIOEDEMA OF TONGUE Patient Home Medication List Home Medication List Reviewed: Yes Aspirin (Aspirin Ec 81 Mg) 81 Mg Tabec, 81 MG PO DAILY, (Reported) Entered as Reported by: BERTO PEDRAZA on 10/18/09 1725 Carvedilol (Coreg Tablet) 12.5 Mg Tablet, 12.5 MG GT BID Prescribed by: TIM LOZOYA on 06/08/14 0831 Epinephrine (Epipen 2-Bridger) 0.3 Mg/0.3 Ml Pen.injctr, 0.3 MG IM PRN PRN for anaphylaxis or angioedema Prescribed by: SARAH GARCIA on 02/17/14 202 Epinephrine (Epipen) 0.3 Mg/0.3 Ml Auto.injct, 0.3 MG IJ Q15M PRN for anaphylaxis Prescribed by: KIM CRUZ on 02/05/18 1101 Epinephrine (Epipen 2-Bridger) 0.3 Mg/0.3 Ml Auto.injct, 0.3 MG IJ Q20M PRN for angioedema Prescribed by: KIM CRUZ on 02/12/18 0909 Fish Oil/Dha/Epa (Fish Oil 1,200 Mg Fish Oil) 1 Each Capsule, 1 EACH PO DAILY, (Reported) Entered as Reported by: FELIX HAMMER on 06/07/14 1559 Metformin Hcl (Metformin Er 500MG) 500 Mg Tab.sr.24h, 1 EACH PO BID WITH MEALS, (Reported) Entered as Reported by: BERTO PEDRAZA on 10/18/09 1724 Multivitamins (Multiple Vitamin) 1 Tab Tablet, 1 TAB PO DAILY, (Reported) Entered as Reported by: MARYCRUZ CASILLAS on 09/28/08 1129 Omeprazole (Prilosec 20 Mg) 20 Mg Capsule.dr, 20 MG PO DAILY, (Reported) Entered as Reported by: MARYCRUZ CASILLAS on 09/28/08 1128 Potassium Chloride (Klor-Con 10 Tablet) 10 Meq Tablet.sa, 1 EACH PO DAILY WITH FOOD, (Reported) Entered as Reported by: MARYCRUZ CASILLAS on 09/28/08 1128 Prednisone (Deltasone Tablet) 20 Mg Tab, 20 MG PO DAILY@0700 Prescribed by: TIM LOZOYA on 06/08/14 0829 Prednisone (Prednisone) 20 Mg Tab, 60 MG PO DAILY Prescribed by: FOX STRICKLAND on 01/31/18 1613 Prednisone (Prednisone) 20 Mg Tab, 20 MG PO DAILY Prescribed by: KIM CRUZ on 02/05/18 1101 Prednisone (Prednisone) 20 Mg Tab, 20 MG PO BID Prescribed by: KIM CRUZ on 03/24/18 2019 Sitagliptin Phosphate (Januvia) 100 Mg Tablet, 1 EACH PO DAILY, (Reported) Entered as Reported by: FELIX HAMMER on 06/07/14 1559 Vit A/Vit C/Vit E/Zinc/Copper (Preservision Tablet) 1 Each Tablet, 1 EACH PO DAILY, (Reported) Entered as Reported by: JHONATAN VIZCAINO on 09/17/10 1100 [Fiber Therapy] , 2 TAB PO DAILY, (Reported) Entered as Reported by: JHONATAN VIZCAINO on 09/17/10 1100 [Matanx] , (Reported) Entered as Reported by: OLY CLARKE on 02/17/14 1850 Review of Systems Review of Systems Constitutional: fever EENTM: No blurred vision Respiratory: cough Cardiovascular: chest pain Gastrointestinal: No abdominal pain, No diarrhea Genitourinary: frequency Musculoskeletal: no symptoms reported Skin: no symptoms reported Psychiatric/Neurological: Other (General weakness) Hematologic/Lymphatic: No Symptoms Reported Immunological/Allergic: no symptoms reported All Other Systems Reviewed Negative Unless Noted: Yes Past Aevmuie-Wvdnpw-Fpfyzx Hx Patient Social History Tobacco Use?: No Seasonal Allergies Seasonal Allergies: Yes Past Medical History Surgeries: Yes Appendectomy, Cardiac, Coronary Stent, Neurological, Orthopedic, Tracheostomy, Transurethral Resection, Vasectomy Respiratory: No Cardiac: Yes (STENT PLACEMENT) Coronary Artery Disease, High Cholesterol, Hypertension Neurological: Yes (INTRACRANIAL BLEED) Neuropathy Reproductive Disorders: No Genitourinary: Yes Prostate Problems Gastrointestinal: No Musculoskeletal: Yes (RIGHT FOOT DROP, LUMBAR RADICULOPATHY/NERVE DAMAGE) Foot Drop, Chronic Back Pain Endocrine: Yes Diabetes, Non-Insulin dep HEENT: No Cancer: No Psychosocial: No Integumentary: Yes (Recurrent angioedema) Blood Disorders: Yes (POLYCYTHEMIA) Adverse Reaction/Blood Tranf: No Physical Exam Vital Signs - First Documented 03/27/22 07:04 Temp 38.6 Pulse 102 Resp 28 B/P (MAP) 164/82 (109) Pulse Ox 93 O2 Delivery Room Air Capillary Refill : Height: 6'1.00" Weight: 265lbs. 0.6oz. [id number]; 36.00 BMI Method:Estimated General Appearance: WD/WN, no apparent distress Eyes: Bilateral Eye Normal Inspection HEENT: PERRL/EOMI, normal ENT inspection, pharynx normal Neck: non-tender, full range of motion, supple, normal inspection Respiratory: chest non-tender, lungs clear, normal breath sounds, no respiratory distress, no accessory muscle use Cardiovascular: regular rate, rhythm, no edema, no murmur Gastrointestinal: normal bowel sounds, non tender, soft; No distended, No guarding, No rebound Extremities: normal range of motion, non-tender, normal inspection, no pedal edema, no calf tenderness, normal capillary refill 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, no motor/sensory deficits, alert, normal mood/affect, oriented x 3 Skin: normal color, warm/dry Lymphatic: no adenopathy Focused Exam Lactate Level 03/27/22 07:20: Lactic Acid Level 3.40*H Lactic Acid Level Laboratory Tests Test 03/27/22 07:20 Lactic Acid Level 3.40 MMOL/L (0.50-2.00) *H Progress/Results/Core Measures Suspected Sepsis SIRS Temperature: Pulse: Respiratory Rate: Laboratory Tests 03/27/22 07:20: White Blood Count 20.8H Blood Pressure / Mean: 03/27/22 07:20: Lactic Acid Level 3.40*H Laboratory Tests 03/27/22 07:20: Creatinine 1.37H, Platelet Count 246, Total Bilirubin 1.2H Results/Orders Lab Results Laboratory Tests Test 03/27/22 07:20 03/27/22 08:21 Range/Units White Blood Count 20.8 H 4.3-11.0 10^3/uL Red Blood Count 4.77 4.30-5.52 10^6/uL Hemoglobin 14.3 13.3-17.7 g/dL Hematocrit 42 40-54 % Mean Corpuscular Volume 89 80-99 fL Mean Corpuscular Hemoglobin 30 25-34 pg Mean Corpuscular Hemoglobin Concent 34 32-36 g/dL Red Cell Distribution Width 13.2 10.0-14.5 % Platelet Count 246 130-400 10^3/uL Mean Platelet Volume 11.1 9.0-12.2 fL Immature Granulocyte % (Auto) 1 % Neutrophils (%) (Auto) 86 H 42-75 % Lymphocytes (%) (Auto) 7 L 12-44 % Monocytes (%) (Auto) 5 0-12 % Eosinophils (%) (Auto) 1 0-10 % Basophils (%) (Auto) 0 0-10 % Neutrophils # (Auto) 18.0 H 1.8-7.8 10^3/uL Lymphocytes # (Auto) 1.4 1.0-4.0 10^3/uL Monocytes # (Auto) 1.1 H 0.0-1.0 10^3/uL Eosinophils # (Auto) 0.1 0.0-0.3 10^3/uL Basophils # (Auto) 0.1 0.0-0.1 10^3/uL Immature Granulocyte # (Auto) 0.1 0.0-0.1 10^3/uL Neutrophils % (Manual) 92 % Lymphocytes % (Manual) 6 % Monocytes % (Manual) 2 % Eosinophils % (Manual) 0 % Basophils % (Manual) 0 % Band Neutrophils 0 % Blood Morphology Comment NORMAL Sodium Level 134 L 135-145 MMOL/L Potassium Level 4.4 3.6-5.0 MMOL/L Chloride Level 102 98-107 MMOL/L Carbon Dioxide Level 20 L 21-32 MMOL/L Anion Gap 12 5-14 MMOL/L Blood Urea Nitrogen 19 H 7-18 MG/DL Creatinine 1.37 H 0.60-1.30 MG/DL Estimat Glomerular Filtration Rate 54 BUN/Creatinine Ratio 14 Glucose Level 214 H 70-105 MG/DL Lactic Acid Level 3.40 *H 0.50-2.00 MMOL/L Calcium Level 9.5 8.5-10.1 MG/DL Corrected Calcium 9.1 8.5-10.1 MG/DL Magnesium Level 1.7 1.6-2.4 MG/DL Total Bilirubin 1.2 H 0.1-1.0 MG/DL Aspartate Amino Transf (AST/SGOT) 34 5-34 U/L Alanine Aminotransferase (ALT/SGPT) 59 H 0-55 U/L Alkaline Phosphatase 61 40-136 U/L Troponin I < 0.028 <0.028 NG/ML B-Type Natriuretic Peptide 68.7 <100.0 PG/ML Total Protein 7.4 6.4-8.2 GM/DL Albumin 4.5 3.2-4.5 GM/DL Lipase 24 8-78 U/L Influenza Type A (RT-PCR) Not Detected Not Detecte Influenza Type B (RT-PCR) Not Detected Not Detecte SARS-CoV-2 RNA (RT-PCR) Not Detected Not Detecte Urine Color YELLOW Urine Clarity CLEAR Urine pH 6.0 5-9 Urine Specific [place] 1.020 1.016-1.022 Urine Protein NEGATIVE NEGATIVE Urine Glucose (UA) NEGATIVE NEGATIVE Urine Ketones NEGATIVE NEGATIVE Urine Nitrite POSITIVE H NEGATIVE Urine Bilirubin NEGATIVE NEGATIVE Urine Urobilinogen 0.2 < = 1.0 MG/DL Urine Leukocyte Esterase NEGATIVE NEGATIVE Urine RBC (Auto) NEGATIVE NEGATIVE Urine RBC NONE /HPF Urine WBC 2-5 /HPF Urine Squamous Epithelial Cells NONE /HPF Urine Crystals NONE /LPF Urine Bacteria MODERATE H /HPF Urine Casts NONE /LPF Urine Mucus NEGATIVE /LPF Urine Culture Indicated YES My Orders Orders - ARIEL CLARK MD Ua Culture If Indicated (03/27/22 06:50) Cbc With Automated Diff (03/27/22 07:14) Comprehensive Metabolic Panel (03/27/22 07:14) Chest 1 View, Ap/Pa Only (03/27/22 07:14) Acetaminophen Tablet (Tylenol Tablet) (03/27/22 07:15) Ed Iv/Invasive Line Start (03/27/22 07:14) Ekg Tracing (03/27/22 07:14) Troponin I Reilly (03/27/22 07:14) Vital Signs Adult Sepsis Patie Q15M (03/27/22 07:14) O2 (03/27/22 07:14) Remove Rings In Anticipation O (03/27/22 07:14) Lactic Acid Analyzer (03/27/22 07:14) Influenza A And B By Pcr (03/27/22 07:14) Ns Iv 1000 Ml (Sodium Chloride 0.9%) (03/27/22 07:15) Covid 19 Inhouse Test (03/27/22 07:14) Magnesium (03/27/22 07:14) Lipase (03/27/22 07:14) Bnp Reilly (03/27/22 07:14) Blood Culture (03/27/22 07:14) Manual Differential (03/27/22 07:20) Catheter(Urinary) Insert & Ass 03,15 (03/27/22 08:06) Lidocaine 2% (Urojet) (Xylocaine Urojet) (03/27/22 08:07) Urine Culture (03/27/22 08:21) Normal Saline 1l Bolus (03/27/22 09:00) Ceftriaxone 1 Gm Iv (03/27/22 09:00) Medications Given in ED Current Medications Medications Dose Ordered Sig/Luis F Route Start Time Stop Time Status Last Admin Dose Admin Acetaminophen 1,000 mg ONCE PRN PO 03/27/22 07:15 03/27/22 07:26 DC 03/27/22 07:26 1,000 MG Lidocaine HCl 10 ml STK-MED ONCE .ROUTE 03/27/22 08:07 03/27/22 08:11 DC 03/27/22 08:15 10 ML Vital Signs/I&O 03/27/22 07:04 Temp 38.6 Pulse 102 Resp 28 B/P (MAP) 164/82 (109) Pulse Ox 93 O2 Delivery Room Air Capillary Refill : Progress Note : Progress Note 71-year-old male with above history coming in due to chills, general weakness, and urinary frequency. The patient was febrile on presentation but otherwise stable vitals. White blood cell count elevated at 20,000, lactic acid elevated greater than 3. An IV was placed and he was given a bolus of IV fluids. The patient did not feel like he was able to urinate. I did a [id number] ultrasound and he does have a full and distended bladder. A Hawkins was then placed for his retention. Urinalysis came back with concerns for infection. Given the lactic acid elevation, leukocytosis, fever, general weakness, and his cystitis with retention, the patient will require admission for IV antibiotics. I contacted Dr. LOZOYA who will admit him for further evaluation and management. ECG Initial ECG Impression Date: Mar 27, 2022 Initial ECG Impression Time: 07:31 Initial ECG Rate: 96 Initial ECG Rhythm: Normal Sinus Comment Narrow QRS, normal axis, no significant ST changes, T wave flattening inferiorly Diagnostic Imaging Diagonstic Imaging: Xray Plain Films/CT/US/NM/MRI: chest Comments NAME: JIE ASIF [facility] REC#: [id number] PT STATUS: REG ER : 1950 PHYSICIAN: ARIEL CLARK MD ADMIT DATE: 03/27/22/ER Draft Date of Exam:03/27/22 CHEST 1 VIEW, AP/PA ONLY INDICATION: chest pain, cough, SOB, febrile. TECHNIQUE: Single view chest 7:42 AM. CORRELATION STUDY: 01/08/2022 FINDINGS: Heart size borderline enlarged. Vasculature overall within normal limits. Unchanged below the right diaphragm. No infiltrate. IMPRESSION: 1. Generally stable chest demonstrating no acute abnormality. Dictated on workstation # [id number] Dict: 03/27/22801 Trans: 03/27/22 08 RITESH [id number] Interpreted by: MICKIE ROWAN DO Electronically signed by: Departure Impression Primary Impression: Cystitis Additional Impressions: Urinary retention Severe sepsis Disposition: ADMITTED INPATIENT Condition: Stable Admissions Decision to Admit Reason: Admit from ER (General) Decision to Admit/Date: Mar 27, 2022 Time/Decision to Admit Time: 08:40 Departure-Patient Inst. Referrals: TIM LOZOYA DO (PCP/Family) Primary Care Physician ARIEL CLARK MD Mar 27, 2022 07:20
[2022-03-27 07:29] LABS: BASOPHILS # (AUTO) 0.1 10^3/uL (0.0-0.1); BASOPHILS % (AUTO) 0 % (0-10); EOSINOPHILS # (AUTO) 0.1 10^3/uL (0.0-0.3); EOSINOPHILS % (AUTO) 1 % (0-10); HEMATOCRIT 42 % (40-54); HEMOGLOBIN 14.3 g/dL (13.3-17.7); LYMPHOCYTES # (AUTO) 1.4 10^3/uL (1.0-4.0); LYMPHOCYTES % (AUTO) 7 % (12-44); MEAN CORPUSCULAR HEMOGLOBIN 30 pg (25-34); MEAN CORPUSCULAR HGB CONC 34 g/dL (32-36); MEAN CORPUSCULAR VOLUME 89 fL (80-99); MEAN PLATELET VOLUME 11.1 fL (9.0-12.2); MONOCYTES # (AUTO) 1.1 10^3/uL (0.0-1.0); MONOCYTES % (AUTO) 5 % (0-12); NEUTROPHILS % (AUTO) 86 % (42-75); PLATELET COUNT 246 10^3/uL (130-400); WHITE BLOOD COUNT 20.8 10^3/uL (4.3-11.0)
[2022-03-27 07:44] LABS: ALBUMIN 4.5 GM/DL (3.2-4.5)
[2022-03-27 07:45] LABS: CHLORIDE 102 MMOL/L (98-107); POTASSIUM 4.4 MMOL/L (3.6-5.0); SODIUM 134 MMOL/L (135-145)
[2022-03-27 07:46] LABS: CALCIUM 9.5 MG/DL (8.5-10.1)
[2022-03-27 07:47] LABS: GLUCOSE 214 MG/DL (70-105); TOTAL PROTEIN 7.4 GM/DL (6.4-8.2)
[2022-03-27 07:48] LABS: CARBON DIOXIDE 20 MMOL/L (21-32)
[2022-03-27 07:49] LABS: BILIRUBIN,TOTAL 1.2 MG/DL (0.1-1.0)
[2022-03-27 07:50] LABS: ALKALINE PHOSPHATASE 61 U/L (40-136)
[2022-03-27 07:51] LABS: BAND NEUTROPHILS 0 %; BASOPHILS % (MANUAL) 0 %; CREATININE SERUM 1.37 MG/DL (0.60-1.30); EOSINOPHILS % (MANUAL) 0 %; GFR ESTIMATED 54; LYMPHOCYTES % (MANUAL) 6 %; MONOCYTES % (MANUAL) 2 %; NEUTROPHILS % (MANUAL) 92 %; RBC MORPH NORMAL
[2022-03-27 07:52] LABS: BUN/CREATININE RATIO 14
[2022-03-27 07:54] LABS: MAGNESIUM 1.7 MG/DL (1.6-2.4)
--- NOTE | 2022-03-27 08:05 | Diagnostic Imaging Report ---
INDICATION: chest pain, cough, SOB, febrile. TECHNIQUE: Single view chest 7:42 AM. CORRELATION STUDY: 01/08/2022 FINDINGS: Heart size borderline enlarged. Vasculature overall within normal limits. Unchanged below the right diaphragm. No infiltrate. IMPRESSION: 1. Generally stable chest demonstrating no acute abnormality. Dictated by: Dictated on workstation # [id number]
[2022-03-27 08:06] LABS: ALANINE AMINOTRANSFERASE 59 U/L (0-55)
[2022-03-27] MEDS ORDERED: LIDOCAINE UROJET 2% GEL 10 ML PKG ONE (08:07)
[2022-03-27 08:27] LABS: BILIRUBIN,URINE NEGATIVE (NEGATIVE); CLARITY,URINE CLEAR; COLOR,URINE YELLOW; GLUCOSE, URINE (UA) NEGATIVE (NEGATIVE); KETONES,URINE NEGATIVE (NEGATIVE); LEUKOCYTE ESTERASE ,URINE NEGATIVE (NEGATIVE); NITRITE,URINE POSITIVE (NEGATIVE); PROTEIN,URINE NEGATIVE (NEGATIVE)
[2022-03-27 08:40] LABS: BACTERIA,URINE MODERATE /HPF
[2022-03-27] MEDS ORDERED: cefTRIAXone 1 GM PRE-MIX 50 ML IV ONE (09:00)
[2022-03-27] MEDS ORDERED: inSUlin ASPART (NovoLOG) 1 UNIT/0.01 ML (CHARGE PER UNIT) SC SCH ×2 (11:00→15:00)
[2022-03-27] MEDS ORDERED: ONDANSETRON 4 MG/2 ML (SDV) Z0FRAN IVP PRN (11:00)
[2022-03-27] MEDS ORDERED: CATHETER FLUSH 10 ML SYR IV PRN (11:00)
[2022-03-27] MEDS ORDERED: RT-ALBUTEROL/IPRATROPIUM 3 ML (DUONEB) VIAL INH PRN (12:00)
[2022-03-27] MEDS: CATHETER FLUSH 10 ML SYR IV SCH ×2 (14:55→20:49)
[2022-03-27] MEDS: ENOXAPARIN 40 MG/0.4 ML (LOVENOX) SYR SC SCH (14:55)
[2022-03-27] MEDS ORDERED: TMSL.4C PO (15:32)
[2022-03-27] MEDS ORDERED: POTA10TA PO (15:32)
[2022-03-27] MEDS ORDERED: CARV25TA PO (15:32)
[2022-03-27] MEDS ORDERED: FINA5TAB6 PO (15:32)
[2022-03-27] MEDS ORDERED: ALOG25TA2 PO (15:32)
[2022-03-27] MEDS ORDERED: TLT2T PO (15:32)
[2022-03-27] MEDS ORDERED: GBPN600T PO (15:32)
[2022-03-27] MEDS ORDERED: ASPI-1238 PO (15:32)
[2022-03-27] MEDS ORDERED: AMLO-250 PO (15:32)
[2022-03-27] MEDS ORDERED: IPRA3AMP31 NEB (15:32)
[2022-03-27] MEDS ORDERED: METF-399 PO (15:32)
[2022-03-27] MEDS ORDERED: TOLT4CAP26 PO (15:32)
[2022-03-27] MEDS ORDERED: CETI10TA17 PO (15:32)
[2022-03-27] MEDS ORDERED: DONE10TA41 PO (15:32)
[2022-03-27] MEDS ORDERED: GLIP5TAB13 PO (15:32)
[2022-03-27] MEDS ORDERED: METH1TAB59 PO (15:32)
[2022-03-27] MEDS ORDERED: OMEP20CA18 PO (15:32)
[2022-03-27] MEDS ORDERED: ALBU6.7H13 INH (15:32)
[2022-03-27] MEDS ORDERED: TAMSULOSIN 0.4 MG (FLOMAX) CAP PO SCH ×2 (18:00)
--- NOTE | 2022-03-27 19:37 | History & Physical ---
History of Present Illness History of Present Illness Reason for visit/HPI This is a 71 year old male who presented to the emergency room with fevers and urinary frequency with incontinence. He also reported cough and congestion for 2 weeks. He was found to have acute urinary retention with a UTI with sepsis. A urinary catheter was placed and her was started on IV rocephin. He will be admitted for IVFs, IV antibiotics, lovenox for DVT prophylaxis and urology will be consulted. Date of Admission Mar 27, 2022 at 09:06 Date Seen by a Provider: Mar 27, 2022 Time Seen by a Provider: 12:45 I consulted on this patient on 03/27/22 19:32 Attending Physician Tim Logan DO Admitting Physician Admitting Physician: Tim Logan DO Attending Physician: Tim Logan DO Consult Allergies and Home Medications Allergies Coded Allergies: JR Inhibitors (Unverified Allergy, Unknown, 06/08/14) ANGIOEDEMA OF TONGUE Patient Home Medication List Home Medication List Reviewed: Yes Albuterol Sulfate (Proventil Hfa) 90 Mcg Hfa.aer.ad, 2 PUFF INH Q6H PRN for SHORTNESS OF BREATH, (Reported) Entered as Reported by: WESLEY ESPINOZA on 03/27/221531 Last Action: Reviewed Alogliptin Benzoate (Alogliptin) 25 Mg Tablet, 25 MG PO HS, (Reported) Entered as Reported by: WESLEY ESPINOZA on 03/27/221531 Last Action: Reviewed Amlodipine Besylate (Amlodipine Besylate) 5 Mg Tablet, 5 MG PO DAILY, (Reported) Entered as Reported by: WESLEY ESPINOZA on 03/27/221531 Last Action: Continued Aspirin (Aspirin EC) 81 Mg Tablet.dr, 81 MG PO DAILY, (Reported) Entered as Reported by: WESLEY ESPINOZA on 03/27/221531 Last Action: Reviewed Carvedilol (Carvedilol) 25 Mg Tablet, 25 MG PO BID, (Reported) Entered as Reported by: WESLEY ESPIONZA on 03/27/221531 Last Action: Reviewed Cetirizine HCl (Cetirizine HCl) 10 Mg Tablet, 10 MG PO DAILY, (Reported) Entered as Reported by: WESLEY ESPINOZA on 03/27/221531 Last Action: Reviewed Donepezil HCl (Donepezil HCl) 10 Mg Tablet, 10 MG PO DAILY, (Reported) Entered as Reported by: WESLEY ESPINOZA on 03/27/221531 Last Action: Reviewed Finasteride (Finasteride) 5 Mg Tablet, 5 MG PO HS, (Reported) Entered as Reported by: WESLEY ESPINOZA on 03/27/221531 Last Action: Continued Gabapentin (Gabapentin) 600 Mg Tablet, 600 MG PO BID, (Reported) Entered as Reported by: WESLEY ESPINOZA on 03/27/221531 Last Action: Continued Glipizide (Glipizide) 5 Mg Tablet, 2.5 MG PO 1800, (Reported) Entered as Reported by: WESLEY ESPINOZA on 03/27/221531 Last Action: Reviewed Ipratropium/Albuterol Sulfate (Iprat-Albut 0.5-3(2.5) mg/3 ml) 0.5 Mg-3 Mg (2.5 Mg Base)/3 Ml Ampul.neb, 3 ML NEB TID PRN for SHORTNESS OF BREATH, (Reported) Entered as Reported by: WESLEY ESPINOZA on 03/27/221531 Last Action: Reviewed Metformin HCl (Metformin HCl) 1,000 Mg Tablet, 1,000 MG PO BID, (Reported) Entered as Reported by: WESLEY ESPINOZA on 03/27/221531 Last Action: Reviewed Methyl-B12/l-Mefolate/B6 Phos (Foltanx Tablet) 2 Mg-3 Mg-35 Mg Tablet, 1 EA PO HS, (Reported) Entered as Reported by: WESLEY ESPINOZA on 03/27/221531 Last Action: Reviewed Omeprazole (Omeprazole) 20 Mg Capsule.dr, 20 MG PO DAILY, (Reported) Entered as Reported by: WESLEY ESPINOZA on 03/27/221531 Last Action: Reviewed Potassium Chloride (K-Tab ER) 10 Meq Tablet.er, 10 MEQ PO DAILY, (Reported) Entered as Reported by: WESLEY ESPINOZA on 03/27/221531 Last Action: Reviewed Tamsulosin HCl (Flomax) 0.4 Mg Cap, 0.4 MG PO BID, (Reported) Entered as Reported by: WESLEY ESPINOZA on 03/27/221531 Last Action: Reviewed Tolterodine Tartrate (Tolterodine Tartrate ER) 4 Mg Cap.er.24h, 4 MG PO DAILY, (Reported) Entered as Reported by: WESLEY ESPINOZA on 03/27/22 1532 Last Action: Reviewed Discontinued Medications Aspirin (Aspirin Ec 81 Mg) 81 Mg Tabec, 81 MG PO DAILY, (Reported) Discontinued Reason: No Longer Taking Entered as Reported by: BERTO PEDRAZA on 10/18/09 1725 Last Action: Discontinued Carvedilol (Coreg Tablet) 12.5 Mg Tablet, 12.5 MG GT BID Discontinued Reason: No Longer Taking Prescribed by: TIM LOGAN on 06/08/14 0831 Last Action: Discontinued Epinephrine (Epipen 2-Bridger) 0.3 Mg/0.3 Ml Pen.injctr, 0.3 MG IM PRN PRN for anaphylaxis or angioedema Discontinued Reason: No Longer Taking Prescribed by: SARAH GARCIA on 02/17/14 202 Last Action: Discontinued Epinephrine (Epipen) 0.3 Mg/0.3 Ml Auto.injct, 0.3 MG IJ Q15M PRN for anaphylaxis Discontinued Reason: No Longer Taking Prescribed by: KIM CRUZ on 02/05/18 1101 Last Action: Discontinued Epinephrine (Epipen 2-Bridger) 0.3 Mg/0.3 Ml Auto.injct, 0.3 MG IJ Q20M PRN for angioedema Discontinued Reason: No Longer Taking Prescribed by: KIM CRUZ on 02/12/18 0909 Last Action: Discontinued Fish Oil/Dha/Epa (Fish Oil 1,200 Mg Fish Oil) 1 Each Capsule, 1 EACH PO DAILY, (Reported) Discontinued Reason: No Longer Taking Entered as Reported by: FELIX HAMMER on 06/07/14 1559 Last Action: Discontinued Metformin Hcl (Metformin Er 500MG) 500 Mg Tab.sr.24h, 1 EACH PO BID WITH MEALS, (Reported) Discontinued Reason: No Longer Taking Entered as Reported by: BERTO PEDRAZA on 10/18/09 1724 Last Action: Discontinued Multivitamins (Multiple Vitamin) 1 Tab Tablet, 1 TAB PO DAILY, (Reported) Discontinued Reason: No Longer Taking Entered as Reported by: MARYCRUZ CASILLAS on 09/28/08 1129 Last Action: Discontinued Omeprazole (Prilosec 20 Mg) 20 Mg Capsule.dr, 20 MG PO DAILY, (Reported) Discontinued Reason: No Longer Taking Entered as Reported by: MARYCRUZ CASILLAS on 09/28/081127 Last Action: Discontinued Potassium Chloride (Klor-Con 10 Tablet) 10 Meq Tablet.sa, 1 EACH PO DAILY WITH FOOD, (Reported) Discontinued Reason: No Longer Taking Entered as Reported by: MARYCRUZ CASILLAS on 09/28/081127 Last Action: Discontinued Prednisone (Deltasone Tablet) 20 Mg Tab, 20 MG PO DAILY@0700 Discontinued Reason: No Longer Taking Prescribed by: TMI LOGAN on 06/08/14 0829 Last Action: Discontinued Prednisone (Prednisone) 20 Mg Tab, 60 MG PO DAILY Discontinued Reason: No Longer Taking Prescribed by: FOX STRICKLAND on 01/31/18 1613 Last Action: Discontinued Prednisone (Prednisone) 20 Mg Tab, 20 MG PO DAILY Discontinued Reason: No Longer Taking Prescribed by: KIM CRUZ on 02/05/18 1101 Last Action: Discontinued Prednisone (Prednisone) 20 Mg Tab, 20 MG PO BID Discontinued Reason: No Longer Taking Prescribed by: KIM CRUZ on 03/24/182018 Last Action: Discontinued Sitagliptin Phosphate (Januvia) 100 Mg Tablet, 1 EACH PO DAILY, (Reported) Discontinued Reason: No Longer Taking Entered as Reported by: FELIX HAMMER on 06/07/14 1559 Last Action: Discontinued Tolterodine Tartrate (Detrol) 2 Mg Tablet, 2 MG PO DAILY, (Reported) Discontinued Reason: No Longer Taking Entered as Reported by: WESLEY ESPINOZA on 03/27/22 1532 Last Action: Discontinued Vit A/Vit C/Vit E/Zinc/Copper (Preservision Tablet) 1 Each Tablet, 1 EACH PO DAILY, (Reported) Discontinued Reason: No Longer Taking Entered as Reported by: JHONATAN VIZCAINO on 09/17/10 1100 Last Action: Discontinued [Fiber Therapy] , 2 TAB PO DAILY, (Reported) Discontinued Reason: No Longer Taking Entered as Reported by: JHONATAN VIZCAINO on 09/17/10 1100 Last Action: Discontinued [Matanx] , (Reported) Discontinued Reason: No Longer Taking Entered as Reported by: OLY CLARKE on 02/17/14 1850 Last Action: Discontinued Past Ypupycg-Atzghk-Tdlfev Hx Patient Social History Marrital Status: Employed/Student: retired Tobacco Use?: No Smoking Status: Former Smoker Use of E-Cig and/or Vaping dev: No Substance use?: No Alcohol Use?: No Pt feels they are or have been: No Immunizations Up To Date Date of Influenza Vaccine: Mar 13, 2022 Tetanus Booster (TDap): Less Than 5 Years Date of Pneumonia Vaccine: Jun 07, 2009 Seasonal Allergies Seasonal Allergies: Yes Current Status Advance Directives: No Communicates: Verbally Primary Language: Canadian Preferred Spoken Language: Canadian Is interpretation needed?: No Sensory deficits: Vision impairment Implanted or Applied Medical D: Stents Past Medical History Surgeries: Appendectomy, Cardiac, Coronary Stent, Neurological, Orthopedic, Tracheostomy, Transurethral Resection, Vasectomy Coronary Artery Disease, High Cholesterol, Hypertension Neuropathy Prostate Problems Foot Drop, Chronic Back Pain Diabetes, Non-Insulin dep Blood Disorders: Yes (POLYCYTHEMIA) Adverse Reaction/Blood Tranf: No Review of Systems Constitutional: chills, fever, weakness EENTM: nose congestion Respiratory: cough, dyspnea on exertion, short of breath Cardiovascular: No no symptoms reported, No see HPI, No chest pain, No edema, No Hx of Intervention, No palpitations, No syncope, No vascular heart diseas, No other Gastrointestinal: No RUQ, No LUQ, No RLQ, No LLQ, No no symptoms reported, No see HPI, No abdominal pain, No constipation, No diarrhea, No dysphagia, No hematemesis, No heartburn, No jaundice, No loss of appetite, No melena, No nausea, No vomiting, No other Genitourinary: frequency, incontinence Musculoskeletal: muscle weakness Skin: No no symptoms reported, No see HPI, No change in color, No change in h air/nails, No dryness, No hx of skin cancer, No lesions, No lumps, No pruritus, No rash, No other Psychiatric/Neurological: Weakness Physical Exam Vital Signs Vital Signs - First Documented 03/27/22 07:04 Temp 38.6 Pulse 102 Resp 28 B/P (MAP) 164/82 (109) Pulse Ox 93 O2 Delivery Room Air Capillary Refill : Less Than 3 Seconds Height, Weight, BMI Height: 6'1.00" Weight: 265lbs. 0.6oz. [id number]; 37.79 BMI Method:Estimated General Appearance: No Apparent Distress HEENT: Normal ENT Inspection Neck: Supple Respiratory: Lungs Clear Cardiovascular: Regular Rate, Rhythm, Systolic Murmur, Gallop/S4 Gastrointestinal: Normal Bowel Sounds, Non Tender, Soft Back: No CVA Tenderness Extremity: Non Tender, No Calf Tenderness, No Pedal Edema Neurologic/Psychiatric: Alert, Oriented x3 Skin: Warm/Dry Comments Laboratory Tests 03/27/22 07:20: White Blood Count 20.8H, Red Blood Count 4.77, Hemoglobin 14.3, Hematocrit 42, Mean Corpuscular Volume 89, Mean Corpuscular Hemoglobin 30, Mean Corpuscular Hemoglobin Concent 34, Red Cell Distribution Width 13.2, Platelet Count 246, Mean Platelet Volume 11.1, Immature Granulocyte % (Auto) 1, Neutrophils (%) (Auto) 86H, Lymphocytes (%) (Auto) 7L, Monocytes (%) (Auto) 5, Eosinophils (%) (Auto) 1, Basophils (%) (Auto) 0, Neutrophils # (Auto) 18.0H, Lymphocytes # (Auto) 1.4, Monocytes # (Auto) 1.1H, Eosinophils # (Auto) 0.1, Basophils # (Auto) 0.1, Immature Granulocyte # (Auto) 0.1, Neutrophils % (Manual) 92, Lymphocytes % (Manual) 6, Monocytes % (Manual) 2, Eosinophils % (Manual) 0, Basophils % (Manual) 0, Band Neutrophils 0, Blood Morphology Comment NORMAL, Sodium Level 134L, Potassium Level 4.4, Chloride Level 102, Carbon Dioxide Level 20L, Anion Gap 12, Blood Urea Nitrogen 19H, Creatinine 1.37H, Estimat Glomerular Filtration Rate 54, BUN/Creatinine Ratio 14, Glucose Level 214H, Lactic Acid Level 3.40*H, Calcium Level 9.5, Corrected Calcium 9.1, Magnesium Level 1.7, Total Bilirubin 1.2H, Aspartate Amino Transf (AST/SGOT) 34, Alanine Aminotransferase (ALT/SGPT) 59H, Alkaline Phosphatase 61, Troponin I < 0.028, B- Type Natriuretic Peptide 68.7, Total Protein 7.4, Albumin 4.5, Lipase 24, Influenza Type A (RT-PCR) Not Detected, Influenza Type B (RT-PCR) Not Detected, SARS-CoV-2 RNA (RT-PCR) Not Detected 03/27/22 08:21: Urine Color YELLOW, Urine Clarity CLEAR, Urine pH 6.0, Urine Specific [place] 1.020, Urine Protein NEGATIVE, Urine Glucose (UA) NEGATIVE, Urine Ketones N EGATIVE, Urine Nitrite POSITIVEH, Urine Bilirubin NEGATIVE, Urine Urobilinogen 0.2, Urine Leukocyte Esterase NEGATIVE, Urine RBC (Auto) NEGATIVE, Urine RBC NONE, Urine WBC 2-5, Urine Squamous Epithelial Cells NONE, Urine Crystals NONE, Urine Bacteria MODERATEH, Urine Casts NONE, Urine Mucus NEGATIVE, Urine Culture Indicated YES 03/27/22 11:05: Lactic Acid Level 2.28*H 03/27/22 11:34: Glucometer 121H 03/27/22 14:55: Lactic Acid Level 2.17*H 03/27/22 16:42: Glucometer 139H 03/27/22 17:02: Lactic Acid Level 1.89 Assessment/Plan Assessment and Plan 1. UTI with Sepsis--admit and give IVFs and start IV rocephin 2. Acute Urinary Retention/BPH--catheter inserted, resume flomax and proscar, urology consulted 3. Hypertension--resume coreg but at lower dose 4. COPD with recent cough--start SVNS with duoneb 5. DMII--start accuchecks with SSI 6. History of CAD--stable Admission Diagnosis Admission Status: Inpatient Order (span 2 midnights) Reason for Inpatient Admission: Needs 48hrs IV abx TIM LOGAN DO Mar 27, 2022 19:37
[2022-03-27] MEDS: GABAPENTIN 600 MG (NEURONTIN) TAB PO SCH (20:49)
[2022-03-27] MEDS ORDERED: FINASTERIDE (PROSCAR) 5 MG TAB PO SCH (21:00)
[2022-03-27] MEDS: inSUlin ASPART (NovoLOG) 1 UNIT/0.01 ML (CHARGE PER UNIT) SC SCH (21:05)
[2022-03-27] MEDS: RT-ALBUTEROL/IPRATROPIUM 3 ML (DUONEB) VIAL INH SCH (21:45)
[2022-03-28 03:24] VITALS: BP 138/67
[2022-03-28] MEDS: inSUlin ASPART (NovoLOG) 1 UNIT/0.01 ML (CHARGE PER UNIT) SC SCH ×4 (05:23→20:08)
[2022-03-28] MEDS: CATHETER FLUSH 10 ML SYR IV SCH ×3 (05:33→20:09)
[2022-03-28 07:31] VITALS: BP 135/78
[2022-03-28] MEDS: RT-ALBUTEROL/IPRATROPIUM 3 ML (DUONEB) VIAL INH SCH ×4 (07:55→18:34)
[2022-03-28] MEDS: PANTOPRAZOLE 40 MG (PROTONIX) TAB PO SCH (08:27)
[2022-03-28] MEDS: amLODIPine 5 MG (NORVASC) TAB PO SCH (08:27)
[2022-03-28] MEDS: ASPIRIN E.C. 81 MG (ECOTRIN) TAB PO SCH (08:27)
[2022-03-28] MEDS: GABAPENTIN 600 MG (NEURONTIN) TAB PO SCH ×2 (08:28→20:08)
[2022-03-28] MEDS: FINASTERIDE (PROSCAR) 5 MG TAB PO SCH (08:28)
[2022-03-28] MEDS: TAMSULOSIN 0.4 MG (FLOMAX) CAP PO SCH ×2 (08:28→20:08)
[2022-03-28] MEDS: cefTRIAXone 1 GM PRE-MIX 50 ML IV SCH (08:28)
--- NOTE | 2022-03-28 10:14 | CONSULTATION REPORT ---
DATE OF SERVICE: 03/28/2022 ATTENDING PHYSICIAN: Dr. Logan. SUMMARY: A 71-year-old white man known to me for years with BPH that was doing well on Flomax 0.8 mg daily and Proscar 5 mg daily. He was also taking Detrol-LA for some incontinence. His last postvoid residual at the office was only 75 mL; however, he has been admitted by Dr. Logan with retention and urosepsis, treated accordingly and he has been responding very well and feels much better and looking well. PLAN: We discussed the options with him, and his and we have decided for now remove the Hawkins catheter, follow him with a bladder scan and straight cath if needed. When ready, we will dismiss him home, I will see him back next week and we will plan a transurethral resection of his prostate. This was fully explained to him and his with complete counseling. We will hold his Detrol-LA and just keep him on the Flomax and the Proscar. Job ID: [id number] DocumentID: [id number] Dictated Date: 03/28/2022 09:12:27 Housecalls Nurse Date: 03/28/2022 10:13:48 Dictated By: JEANNE LEMUS MD
[2022-03-28 12:17] VITALS: BP 141/72
[2022-03-28] MEDS: ENOXAPARIN 40 MG/0.4 ML (LOVENOX) SYR SC SCH (15:14)
[2022-03-28 15:52] VITALS: BP 140/69
--- NOTE | 2022-03-28 17:35 | Progress Note ---
Subjective Date Seen by a Provider: Mar 28, 2022 Time Seen by a Provider: 12:35 Subjective/Events-last exam Fwup UTI with sepsis, urinary retention, URI, COPD with exacerbation, weakness, HTN, DMII. Still c/o weak. Still with some cough. Focused Exam Lactate Level 03/27/22 11:05: Lactic Acid Level 2.28*H 03/27/22 14:55: Lactic Acid Level 2.17*H 03/27/22 17:02: Lactic Acid Level 1.89 Objective Exam Vital Signs Date Time Temp Pulse Resp B/P (MAP) Pulse Ox O2 Delivery O2 Flow Rate FiO2 03/28/22 16:01 69 03/28/22 15:52 37.2 71 20 140/69 (92) 93 Nasal Cannula 3.00 03/28/22 15:30 94 Nasal Cannula 3.00 03/28/22 12:17 37.3 92 18 141/72 (95) 93 Room Air 03/28/22 11:00 98 Nasal Cannula 3.00 03/28/22 08:30 Room Air 3.00 03/28/22 07:55 98 Nasal Cannula 3.00 03/28/22 07:31 37.0 68 18 135/78 (97) 96 Nasal Cannula 2.00 03/28/22 07:13 71 03/28/22 03:24 36.8 68 18 138/67 (90) 96 Nasal Cannula 2.00 03/28/22 01:00 69 03/27/22 23:00 36.9 64 18 143/81 (101) 95 Nasal Cannula 2.00 03/27/22 20:22 37.2 75 18 131/67 (88) 96 Nasal Cannula 2.00 03/27/22 20:00 Room Air 03/27/22 19:00 71 I & O 03/28/22 06:58 Intake Total 3380 ml Output Total 3200 ml Balance 180 ml Capillary Refill : Less Than 3 Seconds General Appearance: No Apparent Distress Neck: Supple Respiratory: Lungs Clear Cardiovascular: Regular Rate, Rhythm Gastrointestinal: normal bowel sounds, non tender, soft Extremity: Non Tender, No Calf Tenderness, No Pedal Edema Neurologic/Psychiatric: Alert, Oriented x3 Results Lab Laboratory Tests 03/27/22 20:56: Glucometer 138H 03/28/22 05:19: Glucometer 154H 03/28/22 11:29: Glucometer 173H 03/28/22 16:37: Glucometer 119H Microbiology 03/27/22 Urine Culture - Preliminary, Resulted Staphylococcus species 03/27/22 Blood Culture - Preliminary, Resulted No growth Assessment/Plan Assessment/Plan Assess & Plan/Chief Complaint 1. UTI with sepsis--on rocephin 2. Urinary retention/BPH--on flomax and proscar and urinary catheter DCed today and will bladder scan to monitor residuals after urination 3. URI/COPD Exacerbation--on SVNs with duoneb and acapella 4. Hypertension--increase coreg to 25mg po BID 5. DMII--on accuchecks with SSI 6. Weakness--up to chair, start PT tomorrow Clinical Quality Measures Admission Status Admission Dx 1. UTI with Sepsis--admit and give IVFs and start IV rocephin 2. Acute Urinary Retention/BPH--catheter inserted, resume flomax and proscar, urology consulted 3. Hypertension--resume coreg but at lower dose 4. COPD with recent cough--start SVNS with duoneb 5. DMII--start accuchecks with SSI 6. History of CAD--stable TIM LOZOYA S DO Mar 28, 2022 17:35
[2022-03-28 20:02] VITALS: BP 153/81
[2022-03-28] MEDS: MELATONIN 3 MG TABLET PO SCH (20:08)
[2022-03-28 23:25] VITALS: BP 120/79
[2022-03-29 04:13] VITALS: BP 139/73
[2022-03-29] MEDS: CATHETER FLUSH 10 ML SYR IV SCH ×3 (05:06→20:20)
[2022-03-29 05:51] LABS: HEMATOCRIT 39 % (40-54); HEMOGLOBIN 12.9 g/dL (13.3-17.7); MEAN CORPUSCULAR HEMOGLOBIN 30 pg (25-34); MEAN CORPUSCULAR HGB CONC 33 g/dL (32-36); MEAN CORPUSCULAR VOLUME 90 fL (80-99); MEAN PLATELET VOLUME 11.5 fL (9.0-12.2); PLATELET COUNT 171 10^3/uL (130-400); WHITE BLOOD COUNT 9.9 10^3/uL (4.3-11.0)
[2022-03-29 06:15] LABS: BILIRUBIN,TOTAL 0.9 MG/DL (0.1-1.0); CALCIUM 9.6 MG/DL (8.5-10.1); CREATININE SERUM 1.31 MG/DL (0.60-1.30); POTASSIUM 4.3 MMOL/L (3.6-5.0); TOTAL PROTEIN 7.1 GM/DL (6.4-8.2)
[2022-03-29] MEDS: inSUlin ASPART (NovoLOG) 1 UNIT/0.01 ML (CHARGE PER UNIT) SC SCH ×4 (06:24→20:19)
[2022-03-29] MEDS: RT-ALBUTEROL/IPRATROPIUM 3 ML (DUONEB) VIAL INH SCH ×4 (06:42→18:58)
[2022-03-29] MEDS: amLODIPine 5 MG (NORVASC) TAB PO SCH (08:18)
[2022-03-29] MEDS: TAMSULOSIN 0.4 MG (FLOMAX) CAP PO SCH ×2 (08:19→20:19)
[2022-03-29] MEDS: ASPIRIN E.C. 81 MG (ECOTRIN) TAB PO SCH (08:19)
[2022-03-29] MEDS: GABAPENTIN 600 MG (NEURONTIN) TAB PO SCH ×2 (08:19→20:19)
[2022-03-29] MEDS: PANTOPRAZOLE 40 MG (PROTONIX) TAB PO SCH (08:19)
[2022-03-29 08:20] VITALS: BP 127/70
[2022-03-29] MEDS: FINASTERIDE (PROSCAR) 5 MG TAB PO SCH (08:21)
[2022-03-29] MEDS: cefTRIAXone 1 GM PRE-MIX 50 ML IV SCH (08:22)
--- NOTE | 2022-03-29 10:42 | Physical Therapy Evaluation ---
PT Evaluation-General Medical Diagnosis Admission Date Mar 27, 2022 at 09:06 Medical Diagnosis: UT, sepsis Onset Date: Mar 27, 2022 Therapy Diagnosis Therapy Diagnosis: impaired mobility, strength Height/Weight Height (Feet): 6 Height (Inches): 1.00 Weight (Pounds): 265 Weight (Ounces): 0.6 Precautions Precautions/Isolations: Fall Prevention, Standard Precautions Referral Physician: Doreen Reason for Referral: Evaluation/Treatment Medical History Additional Medical History Past Medical History Surgeries: Appendectomy, Cardiac, Coronary Stent, Neurological, Orthopedic, Tracheostomy, Transurethral Resection, Vasectomy Coronary Artery Disease, High Cholesterol, Hypertension Neuropathy Prostate Problems Foot Drop, Chronic Back Pain Diabetes, Non-Insulin dep Blood Disorders: Yes (POLYCYTHEMIA) Adverse Reaction/Blood Tranf: No Reviewed History: Yes Social History Home: Single Level Current Living Status: Spouse Entry Into Home: Stairs With Railing PT Steps Into Home: 5 Prior Prior Level of Function SCALE: Activities may be completed with or without assistive devices. 1-Dihgcbwprc-dpwytet completes the activity by him/herself with no assistance from a helper. 5-Set-up or Clean-up Assistance-helper sets up or cleans up; patient completes activity. [place] assists only prior to or following the activity. 4-Supervision or Touching Assistance-helper provides verbal cues and/or touching/steadying and/or contact guard assistance as patient completes act ivity. Assistance may be provided throughout the activity or intermittently. 3-Partial/Moderate Assistance-helper does LESS THAN HALF the effort. [place] lifts, holds or supports trunk or limbs, but provides less than half the effort. 2-Substantial/Maximal Assistance-helper does MORE THAN HALF the effort. [place] lifts or holds trunk or limbs and provides more than half the effort. 8-Fpjxqsqlc-znpvfe does ALL the effort. Patient does none of the effort to complete the activity. Or, the assistance of 2 or more helpers is required for the patient to complete the activity. If activity was not attempted, code reason: 7-Patient Refused. 9-Not Applicable-not attempted and the patient did not perform the activity before the current illness, exacerbation or injury. 10-Not Attempted due to Environmental Limitations-(lack of equipment, weather restraints, etc.). 88-Not Attempted due to Medical Conditions or Safety Concerns. Bed Mobility: 6 Transfers (B,C,W/C): 6 Gait: 6 Stairs: 6 Indoor Mobility (Ambulation): Independent Stairs: Independent patient uses a SPC occasionally PT Evaluation-Current Subjective Patient in bed pre tx, agrees to PT, has no complaints of pain. Pt/Family Goals to be independent at home Objective Patient Orientation: Person, Place, Situation Attachments: Oxygen ROM/Strength ROM Lower Extremities WNL Strength Lower Extremities LLE (hip flexion 3+/5, knee flexion 4/5, knee extension 4/5, dorsiflexion 3+/5), RLE (hip flexion 3+/5, knee flexion 3+/5, knee extension 3+/5, dorsiflexion 3+/5) Neuromuscular (Tone, Coordination, Reflexes) patient has intact peripheral vision and good tracking, no abnormal clonus tested in right ankle Sensory Hearing: Functional Sensation Right Lower Extremit: Impaired Sensation Left Lower Extremity: Impaired Transfers Roll Left to Right (QC): 6 Sit to Lying (QC): 6 Lying to Sitting/Side of Bed(Q: 6 Sit to Stand (QC): 4 CGA for sit to stand, no dizziness or light headedness after standing Gait Walk 10 feet (QC): 4 Walk 50 ft with 2 Turns(QC): 4 Walk 150 ft (QC): 4 Distance: 200' Gait Assistive Device: FWW Comments/Gait Description Patient ambulates with CGA, forward posture, fair speed, good step through and foot clearance, slightly unsteady but no LOB Balance Sitting Static: Normal Sitting Dynamic: Normal Standing Static: Fair Standing Dynamic: Fair Treatment BLE supine exercises x20 (AP, LAQ) Assessment/Needs Patient in bed post tx with nurse call, phone, tray, all needs met. Patient has impaired mobility, strength (worse on the right side), and endurance. Patient is CGA with transfers and ambulation. Rehab Potential: Fair PT Halfway Goals Halfway Goals PT Halfway Goals Time Frame: Apr 19, 2022 Roll Left & Right (QC): 6 Sit to Lying (QC): 6 Lying-Sitting on Side/Bed(QC): 6 Sit to Stand (QC): 4 (SBA) Chair/Mry-cd-Bohxg Xfer(QC): 4 (SBA) Walk 10 feet (QC): 4 (SBA) Walk 50ft with 2 Turns (QC): 4 (SBA) Walk 150 ft (QC): 4 (SBA) PT Plan Problem List Problem List: Activity Tolerance, Functional Strength, Safety, Balance, Gait, Transfer, Bed Mobility, ROM Treatment/Plan Treatment Plan: Continue Plan of Care Treatment Plan: Bed Mobility, Education, Functional Activity [place], Functional Strength, Gait, Safety, Therapeutic Exercise, Transfers Treatment Duration: Apr 05, 2022 Frequency: 6 times per week Estimated Hrs Per Day: .25 hour per day Patient and/or Family Agrees t: Yes Safety Risks/Education Patient Education: Gait Training, Transfer Techniques, Correct Positioning, Safety Issues Teaching Recipient: Patient Teaching Methods: Demonstration, Discussion Response to Teaching: Reinforcement Needed Discharge Recommendations Plan Patient will perform bed mobility and transfer training, balance and endurance training, functional strengthening, stair training, gait training, and education, to improve functional mobility and independence at home. Therapy Discharge Recommendati: Home & Family, Post Acute PT Time Time In: 0954 Time Out: 1010 DATE: Mar 29, 2022 Total Billed Treatment Time: 16 Total Billed Treatment 1 visit EV 16' JESSICA ROSS PT Mar 29, 2022 10:42
[2022-03-29 12:34] VITALS: BP 108/65
[2022-03-29] MEDS: ENOXAPARIN 40 MG/0.4 ML (LOVENOX) SYR SC SCH (14:33)
[2022-03-29 16:00] VITALS: BP 113/68
--- NOTE | 2022-03-29 17:39 | Progress Note ---
Subjective Date Seen by a Provider: Mar 29, 2022 Time Seen by a Provider: 12:45 Subjective/Events-last exam Fwup UTI with sepsis, urinary retention, URI, COPD with exacerbation, weakness, HTN, DMII. Got up and ambulated with PT today. Focused Exam Lactate Level 03/27/22 11:05: Lactic Acid Level 2.28*H 03/27/22 14:55: Lactic Acid Level 2.17*H 03/27/22 17:02: Lactic Acid Level 1.89 Objective Exam Vital Signs Date Time Temp Pulse Resp B/P (MAP) Pulse Ox O2 Delivery O2 Flow Rate FiO2 03/29/22 16:00 36.5 53 18 113/68 (83) 92 Nasal Cannula 2.00 03/29/22 15:33 96 Nasal Cannula 2.00 03/29/22 12:34 36.8 56 18 108/65 (79) 95 Nasal Cannula 2.00 03/29/22 11:08 95 Nasal Cannula 3.00 03/29/22 08:30 Nasal Cannula 3.00 03/29/22 08:20 36.5 71 18 127/70 (89) 95 Nasal Cannula 2.00 03/29/22 06:42 94 Nasal Cannula 3.00 03/29/22 04:13 36.7 65 20 139/73 (95) 97 03/29/22 01:00 70 03/28/22 23:25 37.5 73 20 120/79 (93) 94 NIV CPAP 03/28/22 20:42 Room Air 03/28/22 20:02 37.5 74 20 153/81 (105) 94 Nasal Cannula 3.00 03/28/22 19:00 70 03/28/22 18:34 95 Nasal Cannula 3.00 I & O 03/29/22 07:00 Intake Total 2380 ml Output Total 2200 ml Balance 180 ml Capillary Refill : Less Than 3 Seconds General Appearance: No Apparent Distress Neck: Supple Respiratory: Lungs Clear Cardiovascular: Regular Rate, Rhythm Gastrointestinal: normal bowel sounds, non tender, soft Extremity: Non Tender, No Calf Tenderness, No Pedal Edema Neurologic/Psychiatric: Alert, Oriented x3 Skin: Warm/Dry Results Lab Laboratory Tests 03/28/22 20:06: Glucometer 163H 03/29/22 05:20: White Blood Count 9.9, Red Blood Count 4.32, Hemoglobin 12.9L, Hematocrit 39L, Mean Corpuscular Volume 90, Mean Corpuscular Hemoglobin 30, Mean Corpuscular Hemoglobin Concent 33, Red Cell Distribution Width 13.3, Platelet Count 171, Mean Platelet Volume 11.5, Sodium Level 136, Potassium Level 4.3, Chloride Level 102, Carbon Dioxide Level 23, Anion Gap 11, Blood Urea Nitrogen 14, Creatinine 1.31H, Estimat Glomerular Filtration Rate 57, BUN/Creatinine Ratio 11, Glucose Level 164H, Calcium Level 9.6, Corrected Calcium 9.6, Total Bilirubin 0.9, Aspartate Amino Transf (AST/SGOT) 22, Alanine Aminotransferase (ALT/SGPT) 43, Alkaline Phosphatase 58, Total Protein 7.1, Albumin 4.0 03/29/22 15:43: Glucometer 156H Microbiology 03/27/22 Urine Culture - Preliminary, Resulted Arely Somersg Neg (SAP SD ANALYST) 03/27/22 Blood Culture - Preliminary, Resulted No growth Assessment/Plan Assessment/Plan Assess & Plan/Chief Complaint 1. UTI with sepsis--on rocephin, WBC count decreased to 9.9 2. Urinary retention/BPH--on flomax and proscar and urinary catheter DCed yesterday and will bladder scan again now to monitor residuals after urination 3. URI/COPD Exacerbation--on SVNs with duoneb and acapella 4. Hypertension--stable 5. DMII--on accuchecks with SSI 6. Weakness--started PT Clinical Quality Measures Admission Status Admission Dx 1. UTI with Sepsis--admit and give IVFs and start IV rocephin 2. Acute Urinary Retention/BPH--catheter inserted, resume flomax and proscar, urology consulted 3. Hypertension--resume coreg but at lower dose 4. COPD with recent cough--start SVNS with duoneb 5. DMII--start accuchecks with SSI 6. History of CAD--stable TIM LOZOYA DO Mar 29, 2022 17:39
[2022-03-29 19:29] VITALS: BP 123/64
[2022-03-29] MEDS: MELATONIN 3 MG TABLET PO SCH (20:19)
[2022-03-30 00:41] VITALS: BP 137/65
[2022-03-30 04:10] VITALS: BP 142/74
[2022-03-30] MEDS: inSUlin ASPART (NovoLOG) 1 UNIT/0.01 ML (CHARGE PER UNIT) SC SCH ×2 (05:36→11:17)
[2022-03-30] MEDS: CATHETER FLUSH 10 ML SYR IV SCH (05:36)
[2022-03-30 07:55] VITALS: BP 122/71
[2022-03-30] MEDS: RT-ALBUTEROL/IPRATROPIUM 3 ML (DUONEB) VIAL INH SCH (08:06)
[2022-03-30] MEDS: PANTOPRAZOLE 40 MG (PROTONIX) TAB PO SCH (08:24)
[2022-03-30] MEDS: amLODIPine 5 MG (NORVASC) TAB PO SCH (08:24)
[2022-03-30] MEDS: TAMSULOSIN 0.4 MG (FLOMAX) CAP PO SCH (08:24)
[2022-03-30] MEDS: ASPIRIN E.C. 81 MG (ECOTRIN) TAB PO SCH (08:24)
[2022-03-30] MEDS: FINASTERIDE (PROSCAR) 5 MG TAB PO SCH (08:24)
[2022-03-30] MEDS: GABAPENTIN 600 MG (NEURONTIN) TAB PO SCH (08:24)
[2022-03-30] MEDS: cefTRIAXone 1 GM PRE-MIX 50 ML IV SCH (08:25)
[2022-03-30 10:19] VITALS: BP 122/71
[2022-03-30] MEDS ORDERED: CEFD300C3 PO (10:29)
[2022-03-30 10:51] VITALS: BP 122/71
[2022-03-30 11:05] VITALS: BP 117/67
--- NOTE | 2022-03-30 17:13 | Discharge Summary ---
Diagnosis/Chief Complaint Date of Admission Mar 27, 2022 at 09:06 Date of Discharge Mar 30, 2022 at 12:00 Discharge Date: Mar 30, 2022 Discharge Diagnosis 1. UTI with sepsis--Coag negative Staph on urine culture 2. Urinary retention/BPH--on flomax and proscar and plan is for TURP as outp atient 3. URI/COPD Exacerbation--on SVNs with duoneb and acapella, improved 4. Hypertension--stable 5. DMII--on accuchecks with SSI 6. Weakness--started PT 7. Memory Loss--worse with infection 8. Acute Renal Insufficiency--due to UTI and urinary retention 9. History of CAD--stable Reason Hospital Visit This is a 71 year old male who presented to the emergency room with fevers and urinary frequency with incontinence. He also reported cough and congestion for 2 weeks. He was found to have acute urinary retention with a UTI with sepsis. A urinary catheter was placed and her was started on IV rocephin. He will be admitted for IVFs, IV antibiotics, lovenox for DVT prophylaxis and urology will be consulted. Discharge Summary Hospital Course Was the Problem List Reviewed?: Yes Hospital Course This is a 71 year old male who presented to the emergency room with fevers and urinary frequency with incontinence. He also reported cough and congestion for 2 weeks. He was found to have acute urinary retention with a UTI with sepsis. A urinary catheter was placed and he was started on IV rocephin. He was admitted for to the medical floor for IVFs, IV antibiotics, lovenox for DVT prophylaxis and urology was consulted. He was started back on his flomax and proscar and his urinary catheter was discontinued the following day after admission. His post-void residuals were less than 400m so his catheter was left out. Urology decided that he would be seen next week and then scheduled for a TURP in the next 2-3 weeks. After IVFs and IV rocephin, his WBC count was down from 20,800 on admission to 9,900 by discharge. His lactic acid was also down from 3.4 on admission to 1.89 by discharge. His urine culture grew out coagulase negative Staph and his blood cultures were negative. His cough improved with SVNs with duoneb and acapella. PT was started and the patient was up ambulating in the halls prior to discharge. It was decided her would proceed with outpatient PT on discharge. He will follow up with Dr. Jacome in 1 week and with me in 2 weeks. Labs Laboratory Tests 03/27/22 20:56: Glucometer 138H 03/28/22 05:19: Glucometer 154H 03/28/22 11:29: Glucometer 173H 03/28/22 16:37: Glucometer 119H 03/28/22 20:06: Glucometer 163H 03/29/22 05:20: Hemoglobin 12.9L, Hematocrit 39L, Creatinine 1.31H, Glucose Level 164H 03/29/22 15:43: Glucometer 156H 03/29/22 20:12: Glucometer 187H 03/30/22 05:33: Glucometer 157H 03/30/22 11:02: Glucometer 169H Procedures None. Discharge Physical Examination Allergies: Coded Allergies: JR Inhibitors (Unverified Allergy, Unknown, 06/08/14) ANGIOEDEMA OF TONGUE Vitals & I&Os Vital Signs Date Time Temp Pulse Resp B/P (MAP) Pulse Ox O2 Delivery O2 Flow Rate FiO2 03/30/22 11:05 36.8 58 18 117/67 (84) 90 Room Air 03/30/22 10:51 0.00 03/30/22 10:19 21 General Appearance: Alert, Oriented X3, Cooperative, No Acute Distress Respiratory: Clear to Auscultation Cardiovascular: Regular Rate Abdominal: Normal Bowel Sounds, Soft, No Tenderness Extremities: No Clubbing, No Cyanosis, No Edema Psych/Mental Status: Mood NL Discharge Home Medications Reviewed and agree with Discharge Medication list on patient's Discharge Instruction sheet Instructions to Patient/Family Please see electronic discharge instructions given to patient. TIM LOZOYA DO Mar 30, 2022 17:13
[2022-03-30] MEDS ORDERED: RT-ALBUTEROL/IPRATROPIUM 3 ML (DUONEB) VIAL INH SCH (21:00)
== END 2022-03-30 12:00 | disposition home or self-care (01) | DRG 872 ==
LOC: EDUNIT# 06:46 → ER 06:49 → 4TH 09:06
PROVIDERS: ADMIT Family Medicine; ATTEND Family Medicine
DX: A41.9 Sepsis, unspecified organism (principal); N39.0 Urinary tract infection, site not specified; J44.1 Chronic obstructive pulmonary disease with (acute) exacerbation; N40.1 Benign prostatic hyperplasia with lower urinary tract symptoms; R33.8 Other retention of urine; J06.9 Acute upper respiratory infection, unspecified; I10 Essential (primary) hypertension; R53.1 Weakness; R41.3 Other amnesia; N28.9 Disorder of kidney and ureter, unspecified; I25.10 Atherosclerotic heart disease of native coronary artery without angina pectoris; Z79.82 Long term (current) use of aspirin; Z79.84 Long term (current) use of oral hypoglycemic drugs; Z79.899 Other long term (current) drug therapy; Z95.5 Presence of coronary angioplasty implant and graft; E78.00 Pure hypercholesterolemia, unspecified; E11.40 Type 2 diabetes mellitus with diabetic neuropathy, unspecified; G89.29 Other chronic pain; M54.9 Dorsalgia, unspecified; Z20.822 Contact with and (suspected) exposure to COVID-19; Z87.891 Personal history of nicotine dependence; B95.8 Unspecified staphylococcus as the cause of diseases classified elsewhere
CPT/HCPCS: 36415; 51702; 71045; 80053; 81000; 82947; 83605; 83690; 83735; 83880; 84484; 85007; 85027; 87040; 87077; 87088; 87186; 87636; 93005; 94640; 94760; 96361; 96365

== ENCOUNTER 2022-04-09 05:43 | Outpatient (CLI) | payer MEDICARE, OTHER ==
[~2022-04-09] VITALS: Ht 185.5 cm; Wt 122.7 kg
[~2022-04-09 05:43] MED LIST changes: +ALBU6.7H13 INH; +ALOG25TA2 PO; +AMLO-250 PO; +ASPI-1238 PO; +CARV25TA PO; +CEFD300C3 PO; +DONE10TA41 PO; +FINA5TAB6 PO; +GBPN600T PO; +GLIP5TAB13 PO; +IPRA3AMP31 NEB; +METF-399 PO; +METH1TAB59 PO; +OMEP20CA18 PO; +POTA10TA PO; +TLT2T PO; +TMSL.4C PO; +TOLT4CAP26 PO
[2022-04-10] MEDS ORDERED: GLIP10TA13 PO (09:05)
== END 2022-04-10 09:07 | disposition home or self-care (01) ==
LOC: PREOP 05:43
PROVIDERS: ATTEND Urology
DX: Z01.818 Encounter for other preprocedural examination (principal)

== ENCOUNTER 2022-04-11 06:13 | Day surgery (SDC) | payer MEDICARE, OTHER ==
[~2022-04-11] VITALS: Ht 185.5 cm; Wt 117.2 kg
[2022-04-11] VITALS (10 sets, daily range): BP systolic 96–137; BP diastolic 51–74
[~2022-04-11 06:13] MED LIST changes: +GLIP10TA13 PO
[2022-04-11] MEDS ORDERED: cefTRIAXone 1 GM PRE-MIX 50 ML IV ONE (07:30)
--- NOTE | 2022-04-11 07:35 | Progress Note-Pre Operative ---
Pre-Operative Progress Note Date of Available H&P: Apr 11, 2022 Date H&P Reviewed: Apr 11, 2022 Time H&P Reviewed: 07:34 Changes from last HP NONE Pre-Operative Diagnosis: BPH WITH PROSTATISM AND RETENTION JEANNE LEMUS MD Apr 11, 2022 07:35
--- NOTE | 2022-04-11 07:36 | Progress Note-Post Operative ---
Post-Operative Progess Note Surgeon (s)/Rock Wool Insulator (s) Surgeon JEANNE LEMUS MD Rock Wool Insulator: NONE Pre-Operative Diagnosis BPH WITH PROSTATISM AND RETENTION Post-Operative Diagnosis SAME Procedure & Operative Findings Date of Procedure 04/11/22 Procedure Performed/Findings TURP Anesthesia Type SPINAL Estimated Blood Loss Estimated blood loss (mL): LESS THAN 50cc Specimens/Packing Specimens Removed PROSTATE CHIPS Packing: NONE JEANNE LEMUS MD Apr 11, 2022 07:36
[2022-04-11] MEDS ORDERED: MILK OF MAGNESIA 400 MG/5 ML 30 ML UDC PO PRN (07:45)
[2022-04-11] MEDS ORDERED: BELLADONNA ALK/OPIUM (B & O) 30 MG SUPP PR PRN (07:45)
[2022-04-11] MEDS: LACTATED RINGERS 1,000 ML IV PRN ×2 (08:09→08:54)
[2022-04-11] MEDS ORDERED: PROPOFOL INJECTION 50 ML IV ONE (08:42)
[2022-04-11] MEDS ORDERED: fentaNYL INJ 100 MCG/2 ML AMP ONE (08:42)
[2022-04-11] MEDS ORDERED: MIDAZOLAM 2 MG/2 ML (VERSED) VIAL ONE (08:43)
[2022-04-11] MEDS ORDERED: BUPIVACAINE 0.5% 30 ML (SENSORCAINE) VIAL ONE (08:46)
[2022-04-11] MEDS ORDERED: HYDROmorphone 2 MG/ML VIAL (DILAUDID) IV ONE (10:15)
[2022-04-11] MEDS ORDERED: ONDANSETRON 4 MG/2 ML (SDV) Z0FRAN IVP PRN (10:15)
[2022-04-11] MEDS: LACTATED RINGERS 1,000 ML IV SCH ×4 (11:50→22:54)
[2022-04-11] MEDS: diphenhydrAMINE 25 MG TAB (BENADRYL) PO PRN ×2 (13:41→22:56)
[2022-04-11] MEDS: DOCUSATE SODIUM 100 MG (COLACE) CAP PO SCH ×2 (16:14→20:29)
--- NOTE | 2022-04-11 18:03 | Consultation ---
History of Present Illness History of Present Illness Patient Consulted On(otis/time) 04/11/22 17:57 Date Seen by Provider: Apr 11, 2022 Time Seen by Provider: 17:57 History of Present Illness This is a 72 year old male with a history of BPH with LUTS who underwent a TURP today by Dr. Jacome I am asked to consult for medical management. The patient has a history of Hypertension, DMII, CAD, GERD, previous CVA, diabetic neuropathy and idopathic urticaria. He has some itching postoperatively but this has responded to benadryl. Will plan on restarting his home meds and starting him on accuchecks with a sliding scale insulin. Allergies and Home Medications Allergies Coded Allergies: JR Inhibitors (Unverified Allergy, Unknown, 06/08/14) ANGIOEDEMA OF TONGUE codeine (Verified Allergy, Unknown, MAKES ANGRY, 04/10/22) hydrochlorothiazide (Verified Allergy, Unknown, HIVES, 04/10/22) lisinopril (Verified Allergy, Unknown, HIVES, 04/10/22) losartan (Verified Allergy, Unknown, HIVES, 04/10/22) Patient Home Medication List Home Medication List Reviewed: Yes Albuterol Sulfate (Proventil Hfa) 90 Mcg Hfa.aer.ad, 2 PUFF INH Q6H PRN for SHORTNESS OF BREATH, (Reported) Entered as Reported by: WESLEY ESPINOZA on 03/27/221531 Last Action: Reviewed Amlodipine Besylate (Amlodipine Besylate) 5 Mg Tablet, 5 MG PO DAILY, (Reported) Entered as Reported by: WESLEY ESPINOZA on 03/27/221531 Last Action: Continued Aspirin (Aspirin EC) 81 Mg Tablet.dr, 81 MG PO DAILY, (Reported) Entered as Reported by: WESLEY ESPINOZA on 03/27/221531 Last Action: Last Taken Edited Carvedilol (Carvedilol) 25 Mg Tablet, 25 MG PO BID, (Reported) Entered as Reported by: WESLEY ESPINOZA on 03/27/221531 Last Action: Converted Cetirizine HCl (Cetirizine HCl) 10 Mg Tablet, 10 MG PO DAILY, (Reported) Entered as Reported by: WESLEY ESPINOZA on 03/27/221531 Last Action: Reviewed Donepezil HCl (Donepezil HCl) 10 Mg Tablet, 10 MG PO DAILY, (Reported) Entered as Reported by: WESLEY ESPINOZA on 03/27/221531 Last Action: Continued Finasteride (Finasteride) 5 Mg Tablet, 5 MG PO HS, (Reported) Entered as Reported by: WESLEY ESPINOZA on 03/27/221531 Last Action: Held Gabapentin (Gabapentin) 600 Mg Tablet, 600 MG PO BID, (Reported) Entered as Reported by: WESLEY ESPINOZA on 03/27/221531 Last Action: Continued Glipizide (Glipizide) 10 Mg Tablet, 10 MG PO DAILY, (Reported) Entered as Reported by: KAHLIL CHAUDHRY on 04/10/22904 Last Action: Reviewed Ipratropium/Albuterol Sulfate (Iprat-Albut 0.5-3(2.5) mg/3 ml) 0.5 Mg-3 Mg (2.5 Mg Base)/3 Ml Ampul.neb, 3 ML NEB TID PRN for SHORTNESS OF BREATH, (Reported) Entered as Reported by: WESLEY ESPINOZA on 03/27/221531 Last Action: Reviewed Metformin HCl (Metformin HCl) 1,000 Mg Tablet, 1,000 MG PO BID, (Reported) Entered as Reported by: WESLEY ESPINOZA on 03/27/221531 Last Action: Reviewed Methyl-B12/l-Mefolate/B6 Phos (Foltanx Tablet) 2 Mg-3 Mg-35 Mg Tablet, 1 EA PO HS, (Reported) Entered as Reported by: WESLEY ESPINOZA on 03/27/221531 Last Action: Reviewed Omeprazole (Omeprazole) 20 Mg Capsule.dr, 20 MG PO DAILY, (Reported) Entered as Reported by: WESLEY ESPINOZA on 03/27/221531 Last Action: Continued Tamsulosin HCl (Flomax) 0.4 Mg Cap, 0.4 MG PO BID, (Reported) Entered as Reported by: WESLEY ESPINOZA on 03/27/221531 Last Action: Held Discontinued Medications Alogliptin Benzoate (Alogliptin) 25 Mg Tablet, 25 MG PO HS, (Reported) Discontinued Reason: No Longer Taking Entered as Reported by: WESLEY ESPINOZA on 03/27/221531 Last Action: Discontinued Cefdinir (Cefdinir) 300 Mg Capsule, 300 MG PO BID Discontinued Reason: No Longer Taking Prescribed by: TIM LOZOYA on 03/30/22 1029 Glipizide (Glipizide) 5 Mg Tablet, 2.5 MG PO 1800, (Reported) Discontinued Reason: Prescription changed Entered as Reported by: WESLEY ESPINOZA on 03/27/22 1532 Past Sgrvbag-Fpectd-Amhvnm Hx Patient Social History Marrital Status: Employed/Student: retired Smoking Status: Former Smoker Immunizations Up To Date Date of Influenza Vaccine: Mar 13, 2022 First/Initial COVID19 Vaccinat: 07/01/2020 Second COVID19 Vaccination Otis: 07/29/2020 Tetanus Booster (TDap): Less Than 5 Years Date of Pneumonia Vaccine: Jun 07, 2009 Seasonal Allergies Seasonal Allergies: Yes Current Status Primary Language: Yi Past Medical History Surgeries: Appendectomy, Cardiac, Coronary Stent, Neurological, Orthopedic, Tracheostomy, Transurethral Resection, Vasectomy Pneumonia, Sleep Apnea Currently Using CPAP: Yes Coronary Artery Disease, Heart Attack, High Cholesterol, Hypertension Neuropathy, Stroke Benign Prostatic Hyperpl, Prostate Problems Foot Drop, Chronic Back Pain Diabetes, Non-Insulin dep Blood Disorders: Yes (POLYCYTHEMIA) Adverse Reaction/Blood Tranf: No Review of Systems Review of Systems General: No Chills, No Night Sweats, No Fatigue, No Malaise, No Appetite, No Other HEENT: No Head Aches, No Visual Changes, No Eye Pain, No Ear Pain, No Dysphasia, No Sinus Congestion, No Post Nasal Drip, No Sore Throat, No Other Pulmonary: No Dyspnea, No Cough, No Pleuritic Chest Pain, No Other Cardiovascular: No: Chest Pain, Palpitations, Orthopnea, Paroxysmal Noc. Dyspnea, Edema, Lt Headedness, Other Gastrointestinal: No: Nausea, Vomiting, Abdominal Pain, Diarrhea, Constipation, Melena, Hematochezia, Other Genitourinary: Frequency, Retention Musculoskeletal: No: other, neck pain, shoulder pain, arm pain, back pain, hand pain, leg pain, foot pain Neurological: Weakness Physical Exam Vital Signs Vital Signs - First Documented 04/11/22 06:25 Temp 36.0 Pulse 55 Resp 18 B/P (MAP) 115/74 (88) Pulse Ox 96 O2 Delivery Room Air Capillary Refill : Height, Weight, BMI Height: 6'1.00" Weight: 265lbs. 0.6oz. 120.963648eh; 34.05 BMI Method:Estimated General Appearance: No Apparent Distress HEENT: Pharynx Normal Neck: Supple Respiratory: Lungs Clear Cardiovascular: Regular Rate, Rhythm, Gallop/S4 Gastrointestinal: Normal Bowel Sounds, Soft, Tenderness (mild suprapubic) Rectal: Deferred Genital/Rectal: No Normal Genital Exam, No Normal Rectal Exam, No Normal Rectal Tone, No Normal Vaginal Exam, No Heme Negative Stool, No Blood at Uretheral Meatus, No Decreased Rectal Tone, No Heme Positive Stool, No Tenderness, No Other Back: No CVA Tenderness Extremity: Non Tender, No Calf Tenderness, No Pedal Edema Neurologic/Psychiatric: Alert, Oriented x3 Skin: Warm/Dry Comments Laboratory Tests 04/11/22 07:00: Glucometer 148H Assessment/Plan Assessment/Plan Admission Dx 1. BPH with LUTS--S/P TURP 2. Hypertenison--resume coreg and amlodopine 3. DMII--start accuchecks with SSI 4. GERD--restart omeprazole TIM LOZOYA DO Apr 11, 2022 18:03
[2022-04-11] MEDS: GABAPENTIN 600 MG (NEURONTIN) TAB PO SCH (20:29)
[2022-04-11] MEDS: inSUlin ASPART (NovoLOG) 1 UNIT/0.01 ML (CHARGE PER UNIT) SC SCH (20:30)
--- NOTE | 2022-04-11 20:57 | OPERATIVE REPORT ---
DATE OF SERVICE: 04/11/2022 PREOPERATIVE DIAGNOSIS: BPH with prostatism and retention. POSTOPERATIVE DIAGNOSIS: BPH with prostatism and retention. PROCEDURE PERFORMED: Transurethral resection of the prostate. SURGEON: Jeanne Lemus MD ANESTHESIA: Spinal. COMPLICATIONS: None. DESCRIPTION OF PROCEDURE: Under satisfactory spinal anesthesia, the patient in lithotomy position, genitalia were prepped and draped in the usual sterile fashion. Urethra was dilated with Emi sounds. It was pretty tight, but I was able to dilate it from 24-28 to accommodate a 27-English [employer] resectoscope, again visualized the enlarged lateral lobes meeting in the midline and the median bar elevation. I went ahead and leveled the median bar completely then resected the roof from 11 to 1 o'clock position. Then, the lateral lobes and finally the apical tissue and the floor. Bleeders were cauterized as the resection was proceeding and capsule was visualized in many points. I evacuated the prostatic chips. The resection was very adequate and hemostasis was complete. The ureteric orifices were intact as well and the sphincter. Resectoscope was removed and a 22-English 3-way 30 mL balloon catheter was inserted easily. The balloon inflated to 250 mL and connected to continuous bladder irrigation with fluid, the return of which was clear. Estimated blood loss was less than 50 mL, none of which was replaced. The patient tolerated the procedure anesthesia well and was sent to recovery room in stable condition. Job ID: [id number] DocumentID: [id number] Dictated Date: 04/11/2022 10:13:29 Armoring Machine Operator Date: 04/11/2022 20:55:00 Dictated By: JEANNE LEMUS MD
[2022-04-11] MEDS ORDERED: NON-FORMULARY MEDICATION 1 EA EA (Carvedilol 25 MG) PO SCH (21:00)
[2022-04-12] VITALS (7 sets, daily range): BP systolic 124–149; BP diastolic 63–75
[2022-04-12] MEDS: inSUlin ASPART (NovoLOG) 1 UNIT/0.01 ML (CHARGE PER UNIT) SC SCH ×4 (06:33→20:45)
[2022-04-12] MEDS: LACTATED RINGERS 1,000 ML IV SCH ×3 (06:46→15:32)
--- NOTE | 2022-04-12 08:11 | Anesthesia-Regional Post-Op ---
Regional Patient Condition Mental Status: Alert, Oriented x3 Circulation: Same as Pre-Op Headache: Absent Sensation: Full Recovery Motor Block: Absent Post Op Complications Complications None Follow Up Care/Instructions Patient Instructions None needed. Anesthesia/Patient Condition Patient is doing well, no complaints, stable vital signs, no apparent adverse anesthesia problems. No complications reported per nursing. [place] [facility] [facility] [place] Yes REJI CHEW CRNA Apr 12, 2022 08:11
[2022-04-12] MEDS: PANTOPRAZOLE 20 MG TABLET (PROTONIX) PO SCH (08:44)
[2022-04-12] MEDS: amLODIPine 5 MG (NORVASC) TAB PO SCH (08:44)
[2022-04-12] MEDS: DOCUSATE SODIUM 100 MG (COLACE) CAP PO SCH ×2 (08:44→22:47)
[2022-04-12] MEDS: GABAPENTIN 600 MG (NEURONTIN) TAB PO SCH ×2 (08:44→20:44)
[2022-04-12] MEDS: DONEPEZIL 10 MG (ARICEPT) TAB PO SCH (08:48)
[2022-04-12] MEDS ORDERED: OMEPRAZOLE 20 MG (PriLOSEC) CAP NON-FORMULARY PO SCH (09:00)
--- NOTE | 2022-04-12 10:31 | Progress Note - Urology ---
Progress Note-Urology Progress Notes/Assess & Plan Progress/Assessment & Plan DOING VERY WELL. URINE CLEAR MARILUZ. PLAN PER ORDERS Final Diagnosis BPH WITH RETENTION JEANNE LEMUS MD Apr 12, 2022 10:31
[2022-04-12] MEDS ORDERED: MILK OF MAGNESIA 400 MG/5 ML 30 ML UDC PO NR (11:00)
--- NOTE | 2022-04-12 17:37 | Progress Note ---
Subjective Date Seen by a Provider: Apr 12, 2022 Time Seen by a Provider: 09:00 Subjective/Events-last exam Fwup BPH--S/P TURP. Urine looking clear. Still with catheter in place. BP and blood sugars have been stable. C/O bladder spasms. Objective Exam Vital Signs Date Time Temp Pulse Resp B/P (MAP) Pulse Ox O2 Delivery O2 Flow Rate FiO2 04/12/22 16:02 36.5 60 20 149/72 (97) 97 Room Air 04/12/22 12:00 36.6 63 19 124/73 (90) 91 Room Air 04/12/22 08:21 Nasal Cannula 4.00 04/12/22 08:00 Room Air 04/12/22 07:49 36.8 71 19 134/75 (94) 96 Nasal Cannula 4.00 04/12/22 04:32 36.6 63 16 128/70 (89) 96 Room Air 04/12/22 00:02 36.8 67 16 131/65 (87) 96 Room Air 04/11/22 20:20 Room Air 04/11/22 20:19 37.3 71 16 133/72 (92) 92 Room Air I & O 04/12/22 07:00 Intake Total 3050 ml Output Total 41142 ml Balance -7000 ml Capillary Refill : General Appearance: No Apparent Distress Neck: Supple Respiratory: Lungs Clear Cardiovascular: Regular Rate, Rhythm Gastrointestinal: normal bowel sounds, soft, tenderness (suprapubic) Extremity: Non Tender, No Calf Tenderness, No Pedal Edema Neurologic/Psychiatric: Alert, Oriented x3 Skin: Warm/Dry Results Lab Laboratory Tests 04/11/22 20:24: Glucometer 187H 04/12/22 06:27: Glucometer 139H 04/12/22 12:46: Glucometer 152H 04/12/22 16:06: Glucometer 140H Microbiology 04/11/22 MRSA Screen - Final, Complete MRSA not isolated Assessment/Plan Assessment/Plan Assess & Plan/Chief Complaint 1. BPH with LUTS--S/P TURP by Dr. Jacome, CBI still in place 2. Hypertension--stable 3. DMII--on accuchecks with SSI Expect DC home today per urology Clinical Quality Measures Admission Status Admission Dx 1. BPH with LUTS--S/P TURP 2. Hypertenison--resume coreg and amlodopine 3. DMII--start accuchecks with SSI 4. GERD--restart omeprazole TIM LOZOYA DO Apr 12, 2022 17:37
[2022-04-12] MEDS ORDERED: MELATONIN 3 MG TABLET ONE (20:50)
[2022-04-12] MEDS ORDERED: MELATONIN 3 MG TABLET PO SCH (21:00)
[2022-04-12] MEDS: diphenhydrAMINE 25 MG TAB (BENADRYL) PO PRN (23:06)
[2022-04-13 03:30] VITALS: BP 120/71
[2022-04-13] MEDS: inSUlin ASPART (NovoLOG) 1 UNIT/0.01 ML (CHARGE PER UNIT) SC SCH (05:36)
[2022-04-13 08:02] VITALS: BP 125/75
[2022-04-13] MEDS: DOCUSATE SODIUM 100 MG (COLACE) CAP PO SCH (08:42)
[2022-04-13] MEDS: amLODIPine 5 MG (NORVASC) TAB PO SCH (08:43)
[2022-04-13] MEDS: GABAPENTIN 600 MG (NEURONTIN) TAB PO SCH (08:43)
[2022-04-13] MEDS: PANTOPRAZOLE 20 MG TABLET (PROTONIX) PO SCH (08:43)
[2022-04-13] MEDS: DONEPEZIL 10 MG (ARICEPT) TAB PO SCH (08:52)
--- NOTE | 2022-04-13 09:10 | Discharge Inst-Urology ---
Discharge Inst-Urology Reconcile Patient Problems Problems Reviewed?: Yes Final Diagnosis BPH AND RETENTION Patient Instructions/Follow Up Plan/Assessment/Instructions Please make appointment to been seen in office in 2 weeks. Rest till then Please call Rx for cipro 500 BID for 5 days to his pharmacy Keep bowels soft and moving Increase oral fluids for 48 hours and then as needed. Diet as tolerated. If questions or concerns contact your physician Or seek help at emergency department. JEANNE LEMUS MD Apr 13, 2022 09:10
== END 2022-04-13 10:00 | disposition home or self-care (01) ==
LOC: SDC 06:13 → 4TH 10:40 → SDC 04-13 10:00
PROVIDERS: ATTEND Urology
DX: N40.1 Benign prostatic hyperplasia with lower urinary tract symptoms (principal); R33.9 Retention of urine, unspecified; N32.81 Overactive bladder; K21.9 Gastro-esophageal reflux disease without esophagitis; E66.9 Obesity, unspecified; F17.210 Nicotine dependence, cigarettes, uncomplicated; G47.33 Obstructive sleep apnea (adult) (pediatric); Z68.34 Body mass index [BMI] 34.0-34.9, adult; Z99.89 Dependence on other enabling machines and devices
CPT/HCPCS: 36415; 82947; 86850; 86900; 86901; 87081; 88305; 94664

== ENCOUNTER 2022-05-23 10:30 | Outpatient (RCR) | payer MEDICARE, OTHER | END 2022-05-25 08:28 | disposition home or self-care (01) | PROVIDERS: ATTEND Family Medicine | DX: R53.1 Weakness (principal); M21.371 Foot drop, right foot; I11.9 Hypertensive heart disease without heart failure; E11.9 Type 2 diabetes mellitus without complications; Z91.81 History of falling ==